=== PATIENT | male | born 1960 | race Caucasian/White ===

== ENCOUNTER 2017-10-09 02:51 | Inpatient (IN) | payer BC ==
[2017-10-09 03:09] LABS: Glucose,Whole Blood 147 mg/dL (75-99)
[2017-10-09] MEDS ORDERED: ONDANSETRON 4 MG/2 ML VIAL IVP STA (03:19)
[2017-10-09] MEDS ORDERED: SODIUM CHLORIDE 0.9% 1,000 ML IV STA (03:19)
[2017-10-09] MEDS ORDERED: NITROGLYCERIN OINT 1 INCH/GM PACKET TOPICAL STA (03:19)
[2017-10-09 03:30] LABS: Basophils % (A) 0 %; Eosinophils # (A) 0.4 k/uL (0-0.7); Eosinophils % (A) 4 %; HCT 44.7 % (39.0-53.0); HGB 14.7 gm/dL (13.0-17.5); Lymphocytes % (A) 18 %; MCH 29.8 pg (25.0-35.0); MCHC 32.9 g/dL (31.0-37.0); MCV 90.7 fL (80.0-100.0); Mean Platelet Volume 9.1; Monocytes # (A) 0.5 k/uL (0-1.0); Monocytes % (A) 5 %; Neutrophils # (A) 7.7 k/uL (1.3-7.7); Neutrophils % (A) 72 %; Platelet Count 172 k/uL (150-450); RBC 4.93 m/uL (4.30-5.90); RDW 13.2 % (11.5-15.5); WBC 10.8 k/uL (3.8-10.6)
[2017-10-09 03:39] LABS: ALT 28 U/L (21-72); AST 20 U/L (17-59); Albumin 4.3 g/dL (3.5-5.0); Alkaline Phosphatase 74 U/L (38-126); Anion Gap 12 mmol/L; Blood Urea Nitrogen 15 mg/dL (9-20); Calcium 10.1 mg/dL (8.4-10.2); Carbon Dioxide 25 mmol/L (22-30); Chloride 104 mmol/L (98-107); Glucose 138 mg/dL (74-99); Magnesium 1.9 mg/dL (1.6-2.3); Partial Thromboplastin Time 25.6 sec (22.0-30.0); Potassium 4.6 mmol/L (3.5-5.1); Prothrombin Time 10.1 sec (9.0-12.0); Sodium 141 mmol/L (137-145); Total Bilirubin 0.3 mg/dL (0.2-1.3); Total Protein 6.7 g/dL (6.3-8.2)
[2017-10-09 03:52] LABS: Creatine Kinase 72 U/L (55-170)
[2017-10-09 04:05] LABS: Creatine Kinase MB 0.9 ng/mL (0.0-2.4); Troponin I <0.012 ng/mL (0.000-0.034)
[2017-10-09] MEDS ORDERED: MECLIZINE 12.5 MG TAB PO STA (04:22)
--- NOTE | 2017-10-09 04:22 | XR ---
EXAM: XR Chest, 2 Views CLINICAL HISTORY: Chest Pain TECHNIQUE: Frontal and lateral views of the chest. COMPARISON: No relevant prior studies available. FINDINGS: Lungs: Small patchy airspace opacities medial right upper lung zone and possibly left lingula, may suggest pneumonia. Pleural space: Unremarkable. No pneumothorax. Heart: Unremarkable. No cardiomegaly. Mediastinum: Unremarkable. Bones/joints: Moderate degenerative changes. IMPRESSION: Small patchy airspace opacities medial right upper lung zone and possibly left lingula, may suggest pneumonia.
--- NOTE | 2017-10-09 04:22 | ED ---
Chest Pain HPI - General Chief Complaint: Chest Pain Stated Complaint: dizziness Time Seen by Provider: 10/09/17 03:09 Source: patient, family Mode of arrival: wheelchair Limitations: no limitations - History of Present Illness Initial Comments: 57 years old male comes in with multiple complaints he said he been dizzy his gait has been unsteady and his vision was doubled since 5 PM last evening this is minimal 11 hours now also complaining about chest tightness he had chest tightness prior to coming to the ER chest tightness is resolved now he denies any denies any chest pain now denies any pleuritic chest pain. He denies any weakness of upper or lower extremity no abdominal pain no frequency urgency dysuria. Review of system is unremarkable otherwise. Patient denies any history of heart disease he does have a history of diabetes hypertension and hyperlipidemia - Related Data Home Medications Medication Instructions Recorded Confirmed Lisinopril-Hctz 20-25 mg 1 tab PO DAILY 10/09/17 10/09/17 [Zestoretic 20-25] No Known Home Medications [No 10/09/17 10/09/17 Known Home Medications] Simvastatin [Zocor] 40 mg PO HS 10/09/17 10/09/17 metFORMIN HCL [metFORMIN HCL ER] 750 mg PO DAILY 10/09/17 10/09/17 Allergies Allergy/AdvReac Type Severity Reaction Status Date / Time Sulfa (Sulfonamide Allergy Rash/Hives Verified 10/09/17 02:56 Antibiotics) Review of Systems ROS Statement: Those systems with pertinent positive or pertinent negative responses have been documented in the HPI. ROS Other: All systems not noted in ROS Statement are negative. EKG Findings - EKG Comments: EKG Findings:: EKG is normal sinus rhythm ventricular rate is 67 IN interval is 138 QRS duration is 144 review of this EKG reveals wide QRS complex noticed some mom. Defects noticed left bundle branch block, unfortunately do not have any old EKG to compare with Past Medical History Past Medical History: Diabetes Mellitus, Hyperlipidemia, Hypertension History of Any Multi-Drug Resistant Organisms: None Reported Past Surgical History: Hernia Repair Past Psychological History: No Psychological Hx Reported Smoking Status: Current every day smoker Past Alcohol Use History: Occasional Past Drug Use History: None Reported General Exam - General Exam Comments Initial Comments: General: The patient is awake and alert, in no distress, does look Somewhat Uncomfortable Keeping His Eyes Close, GCS Is 15 Skin: Skin is warm and dry and no rashes or lesions are noted. Eye: Pupils are equal, round and reactive to light, extra-ocular movements are intact; there is normal conjunctiva bilaterally. Ears, nose, mouth and throat: There are moist mucous membranes and no oral lesions. Neck: The neck is supple, there is no tenderness, no signs of meningitis is able to move his neck with a full range of motion Cardiovascular: There is a regular rate and rhythm. No murmur, rub or gallop is appreciated. Respiratory: To auscultation bilateral, no wheezing no rhonchi no distress respiratory gates noticed Gastrointestinal: Soft, non-distended, non-tender abdomen without masses or organomegaly noted. There is no rebound or guarding present. Bowel sounds are unremarkable. Back: There is no tenderness to palpation in the midline. There is no obvious deformity. Musculoskeletal: Normal ROM, no tenderness, There is no pedal edema. There is no calf tenderness or swelling. No cords were appreciated. Neurological: CN II-XII intact, Cranial nerves III through XII are intact. There are no obvious motor or sensory deficits. Coordination appears grossly intact. Speech is normal. Psychiatric: Cooperative, appropriate mood & affect, normal judgment. Limitations: no limitations Course Vital Signs 10/09/17 10/09/17 02:52 04:23 Temperature 97 F L Pulse Rate 74 59 L Respiratory 20 16 Rate Blood Pressure 181/94 134/64 O2 Sat by Pulse 97 98 Oximetry Upon reassessment noticed the white count is 10.8 INR is unremarkable troponin is negative EKG reveals a left bundle-branch block chest x-ray shows pneumonia and head CT showed down 15 mm calcification. Considering his dizziness and concerned about brainstem infarct patient will be admitted to Dr. Garsia's service and will allow consult neurology and most probably getting MRI or MRA done Disposition Clinical Impression: Diplopia, Unsteady gait, Chest tightness, Left bundle branch block Disposition: ADMITTED IP TO THIS HOSP Condition: Good Referrals: Rubia Martinez DO [Primary Care Provider] - 1-2 days
--- NOTE | 2017-10-09 04:23 | CT ---
EXAM: CT Head Without Intravenous Contrast CLINICAL HISTORY: chest pain, dizziness TECHNIQUE: Axial computed tomography images of the head/brain without intravenous contrast. CTDI is 60.3 mGy and DLP is 1054.2 mGy-cm. This CT exam was performed using one or more of the following dose reduction techniques: automated exposure control, adjustment of the mA and/or kV according to patient size, and/or use of iterative reconstruction technique. COMPARISON: No relevant prior studies available. FINDINGS: Brain: 15 mm curvilinear calcification in left periventricular white matter region of posterior horn of left lateral ventricle is likely benign and chronic. No hemorrhage. Ventricles: See above. Bones/joints: Unremarkable. No acute fracture. Soft tissues: Unremarkable. Sinuses: Moderate mucosal thickening in ethmoid air cells Mastoid air cells: Unremarkable as visualized. No mastoid effusion. IMPRESSION: No acute intracranial findings 15 mm curvilinear calcification in left periventricular white matter region of posterior horn of left lateral ventricle is likely benign and chronic. Vascular malformation should be considered
[2017-10-09] MEDS ORDERED: MORPHINE SULFATE 4 MG/0.8 ML SYRINGE (INJ) IVP PRN (04:34)
[2017-10-09] MEDS ORDERED: ACETAMINOPHEN TAB 325 MG TAB PO PRN ×2 (04:34→13:18)
[2017-10-09] MEDS ORDERED: NITROGLYCERIN SL TABS 0.4 MG TAB SUBLINGUAL PRN (04:34)
[2017-10-09 05:56] VITALS: BMI 31.1
[2017-10-09 06:07] LABS: Glucose,Whole Blood 152 mg/dL (75-99)
[2017-10-09] MEDS ORDERED: metFORMIN 500 MG TAB PO SCH (09:00)
[2017-10-09 09:26] LABS: Creatine Kinase 64 U/L (55-170)
[2017-10-09 09:37] LABS: Creatine Kinase MB 0.7 ng/mL (0.0-2.4); Troponin I <0.012 ng/mL (0.000-0.034)
[2017-10-09] MEDS: LISINOPRIL-HCTZ 20-25 MG 1 EACH TAB PO SCH (09:48)
[2017-10-09] MEDS ORDERED: ATORVASTATIN 40 MG TAB PO SCH ×2 (10:00→21:00)
--- NOTE | 2017-10-09 10:44 | P.CRDCN ---
History of Present Illness Consult date: 10/09/17 Requesting physician: Purvi Paul Consult reason: chest pain Chief complaint: Blurring of Vision, double vision History of present illness: This is a 57-year-old gentleman with history of hypertension, hyperlipidemia, diabetes, nicotine dependence, daily EtOH use of approximately 6 beers per day, strong family history of premature coronary artery disease in his siblings who presents to the hospital with symptoms of blurring of vision and double vision. He states that when he woke up this morning, he noticed in both eyes that he was seeing double. He states that if he would cover his right eye, his left eye seemed to be focusing way off to the left. He did state that he developed a mild associated headache with this. On arrival here patient was experiencing some pressure sensation in his chest, he is not sure if it was anxiety related or not, but for this reason a cardiology consultation was requested. Apparently the patient had a stress test in March which was reported to them to be inconclusive because the patient did not reach his heart rate, he is scheduled next week to undergo a repeat stress test. Family physician is Dr. Martinez, he does not follow at this time with a [employer] [facility]. At the time of my examination this morning, he denies any chest discomfort, he states chronically that he has a left-sided upper chest and neck discomfort related to a pinched nerve he's had for quite some time in the left neck area. This is unchanged from his usual. He continues to have double vision. CAT scan of the brain was performed on arrival here which did not reveal any acute intracranial findings, 15 mm calcification in the left periventricular white matter region of the posterior horn of the left lateral ventricle is noted and likely benign. Vascular malformation should be considered. Chest x-ray showed small patchy airspace [place] in the medial right upper lobe lung zone and possible left lingula suggesting possible pneumonia. EKG shows a normal sinus rhythm with a left bundle-branch block pattern with T-wave inversion in the lateral leads. No acute changes noted. Blood pressure on arrival here 180/ 90, heart rate in the 70s, 97% on room air. He is afebrile. Laboratory data, white blood cell count 10.8, hemoglobin 14.7, platelet count 172. Sodium 141, potassium 4.6, BUN 15, creatinine 0.6. Magnesium 1.9. Troponins negative 2. 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 Drinks approx. 6 beers a day. Past Drug Use History: None Reported - Past Family History Father Family Medical History: Coronary Artery Disease (CAD), Hyperlipidemia, Hypertension Additional Family Medical History / Comment(s): CABG Mother Family Medical History: Coronary Artery Disease (CAD), CVA/TIA, Diabetes Mellitus, Hyperlipidemia, Hypertension, Myocardial Infarction ([place]) Additional Family Medical History / Comment(s): 7 stents Brother(s) Family Medical History: Diabetes Mellitus Additional Family Medical History / Comment(s): CABG Sister(s) Additional Family Medical History / Comment(s): CABG and valve Medications and Allergies Home Medications Medication Instructions Recorded Confirmed Type Lisinopril-Hctz 20-25 mg 1 tab PO DAILY 10/09/17 10/09/17 History [Zestoretic 20-25] No Known Home Medications [No 10/09/17 10/09/17 History Known Home Medications] Simvastatin [Zocor] 40 mg PO HS 10/09/17 10/09/17 History metFORMIN HCL [metFORMIN HCL ER] 750 mg PO DAILY 10/09/17 10/09/17 History Allergies Allergy/AdvReac Type Severity Reaction Status Date / Time Sulfa (Sulfonamide Allergy Rash/Hives Verified 10/09/17 02:56 Antibiotics) Physical Exam Vitals: Vital Signs Temp Pulse Pulse Resp BP BP Pulse Ox 10/09/17 05:34 64 18 146/65 98 10/09/17 05:02 98.6 F 68 16 131/60 96 10/09/17 04:23 59 L 16 134/64 98 10/09/17 02:52 97 F L 74 20 181/94 97 Intake and Output 10/08/17 10/09/17 10/09/17 22:59 06:59 14:59 Other: # Voids 1 Weight 98.43 kg PHYSICAL EXAMINATION: HEENT: Head is atraumatic, normocephalic. Pupils equal, round. Neck is supple. There is no elevated jugular venous pressure. HEART EXAMINATION: Heart S1, S2 normal. No murmur or gallop heard. CHEST EXAMINATION: Lungs reveal scattered coarse wheezing throughout. ABDOMEN: Soft, nontender. Bowel sounds are heard. No organomegaly noted. EXTREMITIES: 2+ peripheral pulses with no evidence of peripheral edema and no calf tenderness noted. NEUROLOGIC patient is awake, alert and oriented -3. Double vision bilaterally. . Results 10/09/17 03:12 10/09/17 03:12 Cardiac Enzymes 10/09/17 10/09/17 10/09/17 Range/Units 03:12 03:12 08:35 AST 20 (17-59) U/L CK-MB (CK-2) 0.9 0.7 (0.0-2.4) ng/mL Troponin I <0.012 <0.012 (0.000-0.034) ng/mL Coagulation 10/09/17 Range/Units 03:12 PT 10.1 (9.0-12.0) sec APTT 25.6 (22.0-30.0) sec CBC 10/09/17 Range/Units 03:12 WBC 10.8 H (3.8-10.6) k/uL RBC 4.93 (4.30-5.90) m/uL Hgb 14.7 (13.0-17.5) gm/dL Hct 44.7 (39.0-53.0) % Plt Count 172 (150-450) k/uL Comprehensive Metabolic Panel 10/09/17 Range/Units 03:12 Sodium 141 (137-145) mmol/L Potassium 4.6 (3.5-5.1) mmol/L Chloride 104 (98-107) mmol/L Carbon Dioxide 25 (22-30) mmol/L BUN 15 (9-20) mg/dL Creatinine 0.62 L (0.66-1.25) mg/dL Glucose 138 H (74-99) mg/dL Calcium 10.1 (8.4-10.2) mg/dL AST 20 (17-59) U/L ALT 28 (21-72) U/L Alkaline Phosphatase 74 (38-126) U/L Total Protein 6.7 (6.3-8.2) g/dL Albumin 4.3 (3.5-5.0) g/dL Current Medications Generic Name Dose Route Start Last Admin Trade Name Freq PRN Reason Stop Dose Admin Acetaminophen 650 mg 10/09/17 04:34 Tylenol Tab PO Q4HR PRN Pain Atorvastatin Calcium 40 mg 10/09/17 10:00 10/09/17 09:52 Lipitor PO 40 mg DAILY LAUREANO Administration Lisinopril/HCTZ 1 each 10/09/17 09:00 10/09/17 09:48 Zestoretic 20-25 PO 1 each DAILY LAUREANO Administration Sodium Chloride 1,000 mls @ 100 mls/hr 10/09/17 03:19 10/09/17 03:27 Saline 0.9% IV 10/09/17 13:18 100 mls/hr .Q10H STA Administration Metformin HCl 750 mg 10/09/17 09:00 10/09/17 09:50 Glucophage PO 750 mg BID LAUREANO Administration Morphine Sulfate 2 mg 10/09/17 04:34 Morphine Sulfate (Inj) IVP Q5M PRN Chest Pain Nitroglycerin 0.4 mg 10/09/17 04:34 Nitrostat SUBLINGUAL Q5M PRN Chest Pain Intake and Output 10/08/17 10/09/17 10/09/17 22:59 06:59 14:59 Other: # Voids 1 Weight 98.43 kg 10/09/17 03:12 10/09/17 03:12 EKG Interpretations (text) EKG shows normal sinus rhythm with left bundle branch block pattern T-wave inversion in the lateral leads. Assessment and Plan Plan: Assessment and plan #1 symptoms of double vision with associated headache. Initial CAT scan did not reveal any acute findings. Rule out possible TIA #2 chest pressure and heaviness, troponin negative 2. EKG shows a normal sinus rhythm with T wave inversion noted in the lateral leads. Patient did have a stress test performed in March, he was told this was inconclusive because he was not able to reach maximum heart rate, he is scheduled as an outpatient to undergo a stress test next week. #3 hypertension #4 hyperlipidemia # 5 diabetes #6 nicotine dependence #7 EtOH use, patient drinks at least 6 beers a day #8 strong family history of premature coronary artery disease in his siblings Plan We will obtain an echocardiogram with Doppler study. Neurology consultation has also been requested. Once the patient's neurological workup is completed and patient is stable he will have a repeat stress test performed. Will increase the patient's Lipitor to 80 mg daily, if okay with neurology initiate a baby aspirin now on daily. Further recommendations to follow. DNP note has been reviewed, I agree with a documented findings and plan of care. Patient was seen and examined.
[2017-10-09 12:03] LABS: Glucose,Whole Blood 111 mg/dL (75-99)
[2017-10-09] MEDS ORDERED: ONDANSETRON 4 MG/2 ML VIAL IVP PRN (13:18)
[2017-10-09] MEDS ORDERED: THIAMINE 100 MG/ML 2 ML VIAL IM STA (13:31)
[2017-10-09] MEDS ORDERED: LORazepam 2 MG/ML INJ IV PRN ×3 (13:31)
--- NOTE | 2017-10-09 13:36 | P.HPIM ---
History of Present Illness H&P Date: 10/09/17 Chief Complaint: Double vision This is a 57-year-old gentleman with past medical history noted below significant for essential hypertension, tobacco abuse, and daily alcohol use who presented to the emergency room with blurred and double vision. Patient said that his symptoms started all of a sudden this morning when he noted that he was seeing everything in double. He denies any significant headache. He said it's easier for him to cover his left eye and focus with the right eye. He never had similar problems in the past. He was evaluated in the emergency room and computed tomography scan of the brain showed no acute findings. There was an area of calcification in the left periventricular white matter with questionable vascular malformation. Patient was also describing some chest discomfort and pressure at 12 leads EKG showed no acute ischemic changes with a left bundle branch block. His troponin was negative. He is currently chest pain-free. Blood pressure not well controlled on presentation. Patient said that his symptoms are persistent and he is still seeing double. No new other symptoms of numbness or tingling otherwise. No muscle weakness. No focal neurological deficit Review of Systems Review of system: 14 points review of systems were obtained and were negative except to what were mentioned in the HPI. 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 Drinks approx. 6 beers a day. Past Drug Use History: None Reported - Past Family History Father Family Medical History: Coronary Artery Disease (CAD), Hyperlipidemia, Hypertension Additional Family Medical History / Comment(s): CABG Mother Family Medical History: Coronary Artery Disease (CAD), CVA/TIA, Diabetes Mellitus, Hyperlipidemia, Hypertension, Myocardial Infarction ([place]) Additional Family Medical History / Comment(s): 7 stents Brother(s) Family Medical History: Diabetes Mellitus Additional Family Medical History / Comment(s): CABG Sister(s) Additional Family Medical History / Comment(s): CABG and valve Medications and Allergies Home Medications Medication Instructions Recorded Confirmed Type Lisinopril-Hctz 20-25 mg 1 tab PO DAILY 10/09/17 10/09/17 History [Zestoretic 20-25] Simvastatin [Zocor] 40 mg PO HS 10/09/17 10/09/17 History metFORMIN HCL [metFORMIN HCL ER] 750 mg PO DAILY 10/09/17 10/09/17 History Allergies Allergy/AdvReac Type Severity Reaction Status Date / Time Sulfa (Sulfonamide Allergy Rash/Hives Verified 10/09/17 11:18 Antibiotics) Physical Exam Vitals: Vital Signs Temp Pulse Pulse Resp BP BP Pulse Ox 10/09/17 08:00 98.0 F 63 18 140/64 99 10/09/17 05:34 64 18 146/65 98 10/09/17 05:02 98.6 F 68 16 131/60 96 10/09/17 04:23 59 L 16 134/64 98 10/09/17 02:52 97 F L 74 20 181/94 97 Intake and Output 10/08/17 10/09/17 10/09/17 22:59 06:59 14:59 Intake Total 240 Balance 240 Intake: Oral 240 Other: # Voids 1 Weight 98.43 kg General: The patient is awake and alert, in no distress Eye: there is normal conjunctiva bilaterally. Neck: The neck is supple, there is no JVD. Cardiovascular: Normal S1-S2, no S3-S4, no murmurs. Respiratory: Lungs clear to auscultation bilaterally Gastrointestinal: Abdomen is soft, nontender Musculoskeletal: There is no pedal edema. Neurological:. Speech is normal. Skin: Skin is warm and dry Results CBC & Chem 7: 10/09/17 03:12 10/09/17 03:12 Labs: Abnormal Lab Results - Last 24 Hours (Table) 10/09/17 10/09/17 10/09/17 Range/Units 03:04 03:12 03:12 WBC 10.8 H (3.8-10.6) k/uL Creatinine 0.62 L (0.66-1.25) mg/dL Glucose 138 H (74-99) mg/dL POC Glucose (mg/dL) 147 H (75-99) mg/dL 10/09/17 10/09/17 Range/Units 06:05 11:57 WBC (3.8-10.6) k/uL Creatinine (0.66-1.25) mg/dL Glucose (74-99) mg/dL POC Glucose (mg/dL) 152 H 111 H (75-99) mg/dL Thrombosis Risk Factor Assmnt - Choose All That Apply Any of the Below Risk Factors Present?: Yes Each Factor Represents 1 point: Age 41-60 years, Obesity (BMI >25) Thrombosis Risk Factor Assessment Total Risk Factor Score: 2 Thrombosis Risk Factor Assessment Level: Low Risk Assessment and Plan Assessment: 1. Suspected CVA, computed tomography scan of the brain showed no acute findings. Area of calcification in the left periventricular region with questionable vascular malformation. I would obtain MRI/MRA of the brain/neck for further evaluation. Neurology consulted. 2. Chest pressure, 12-lead EKG showed no acute ischemic changes. Troponin negative 2. Patient was seen and evaluated by cardiology. Echocardiogram ordered. No further testing at this time. 3. Essential hypertension: Blood pressure within acceptable range. Continue home medication 4. Alcohol abuse: Counseled to quit. Start CIAK protocol as needed. 5. Mixed hyperlipidemia, I would check fasting lipid profile
[2017-10-09] MEDS: SODIUM CHLORIDE 0.9% 1,000 ML IV SCH ×2 (14:15→22:47)
[2017-10-09] MEDS: ASPIRIN 81 MG PO SCH (14:36)
--- NOTE | 2017-10-09 15:02 | P.CNNES ---
History of Present Illness Consult date: 10/09/17 Reason for Consult: Patient with symptoms of diplopia and possible stroke. History of Present Illness: This patient is a 57-year-old right-handed white male who was in his usual state of health until late yesterday evening. Patient states he was getting ready to go to bed when he noticed some difficulty with blurring of vision. He did have an occasional episode in which he thought he was seeing double. He decided to go to bed yesterday evening and woke up early this morning and noted that he had sudden onset of diplopia. He describes his double vision mostly is vertical in that objects appeared one over the other. Patient has no previous history of having diplopia in the past. He didn't associate a mild headache with this symptoms last night but nothing severe this morning. He did close one eye and noticed that his double vision completely resolved. He closed the other eye and again the symptoms completely resolved with one eye closed. The patient was advised to come to the emergency room. He was seen in the emergency room at [facility] and evaluated by Dr. Mathews. The patient was sent for a computed tomography scan of the brain in the ER for further evaluation. His CAT scan revealed no acute intracranial abnormalities. There was a 15 mm curvilinear calcification noted in the left periventricular white matter region in the posterior horn. Vascular malformation was in the differential diagnosis. Patient denies any previous history of head trauma or head injury. He has no previous history of seizures. He did feel slight dizziness with this symptoms which she describes as secondary to his sense of diplopia. He has no previous history of TIA or stroke. We recommended that he be started on one baby aspirin 81 mg daily for secondary stroke prevention. We will also obtain a carotid Doppler ultrasound if this has not been ordered. He does have a history of alcohol use and apparently drinks 6 beers a day. He is being monitored for possible alcohol withdrawal syndrome as well and will be started on a CIWA protocol if necessary. The patient is resting comfortably at this time and does tend to keep his left eye closed. He states with one eye close his vision is normal. With both eyes open is when he sees double. He continues to describe a vertical diplopia mostly. He denies any significant dizziness at this time. Finger-nose testing reveals no evidence of dysmetria. He did complain of some chest pain and he is being evaluated by cardiology and most likely will require a stress test for further evaluation. The patient states he has been able to stand and ambulate but is very cautious due to the double vision. Ophthalmology has been consulted and we will wait their further recommendations. His neurological examination at this time reveals him to have some left eye gaze paresis. There is also slight ptosis involving the left eyelid. His clinical history suggests brainstem ischemia and/or brainstem stroke. We would recommend an MRI and MRA of the brain for further evaluation. But also obtain a carotid Doppler ultrasound as part of the stroke workup. He is to be continued on one baby aspirin daily for secondary stroke prevention. His overall prognosis at this time remains guarded. Case was discussed at length with the patient. All of his questions are answered. He is aware of our recommendations and findings this time. Review of Systems Constitutional: Denies chills, Denies fever Eyes: bilateral diplopia, denies blurred vision, denies pain Ears, nose, mouth and throat: Denies headache, Denies sore throat Cardiovascular: Denies chest pain, Denies shortness of breath Respiratory: Denies cough Gastrointestinal: Denies abdominal pain, Denies diarrhea, Denies nausea, Denies vomiting Musculoskeletal: Denies myalgias Integumentary: Denies pruritus, Denies rash Neurological: Reports double vision, Reports headaches, Reports paresthesias, Denies numbness, Denies weakness Psychiatric: Denies anxiety, Denies depression Endocrine: Denies fatigue, Denies weight change Past Medical History Past Medical History: Diabetes Mellitus, Hyperlipidemia, Hypertension History of Any Multi-Drug Resistant Organisms: None Reported Past Surgical History: Hernia Repair Additional Past Surgical History / Comment(s): 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 Drinks approx. 6 beers a day. Past Drug Use History: None Reported - Past Family History Father Family Medical History: Coronary Artery Disease (CAD), Hyperlipidemia, Hypertension Additional Family Medical History / Comment(s): CABG Mother Family Medical History: Coronary Artery Disease (CAD), CVA/TIA, Diabetes Mellitus, Hyperlipidemia, Hypertension, Myocardial Infarction ([place]) Additional Family Medical History / Comment(s): 7 stents Brother(s) Family Medical History: Diabetes Mellitus Additional Family Medical History / Comment(s): CABG Sister(s) Additional Family Medical History / Comment(s): CABG and valve Medications and Allergies Home Medications Medication Instructions Recorded Confirmed Type Lisinopril-Hctz 20-25 mg 1 tab PO DAILY 10/09/17 10/09/17 History [Zestoretic 20-25] Simvastatin [Zocor] 40 mg PO HS 10/09/17 10/09/17 History metFORMIN HCL [metFORMIN HCL ER] 750 mg PO DAILY 10/09/17 10/09/17 History Allergies Allergy/AdvReac Type Severity Reaction Status Date / Time Sulfa (Sulfonamide Allergy Rash/Hives Verified 10/09/17 11:18 Antibiotics) Physical Examination - Vital Signs Vital Signs: Vital Signs Temp Pulse Pulse Resp BP BP Pulse Ox 10/09/17 08:00 98.0 F 63 18 140/64 99 10/09/17 05:34 64 18 146/65 98 10/09/17 05:02 98.6 F 68 16 131/60 96 10/09/17 04:23 59 L 16 134/64 98 10/09/17 02:52 97 F L 74 20 181/94 97 Intake and Output 10/08/17 10/09/17 10/09/17 22:59 06:59 14:59 Intake Total 240 Balance 240 Intake: Oral 240 Other: # Voids 1 Weight 98.43 kg - Constitutional General appearance: average body habitus, cooperative - EENT EENT: PERRL, mucous membranes moist - Respiratory Respiratory: lungs clear, normal breath sounds - Cardiovascular Cardiovascular: regular rate, normal S1, normal S2 Extremities: no peripheral edema bilaterally - Gastrointestinal Gastrointestinal: normoactive bowel sounds - Integumentary Integumentary: normal - Neurologic Cranial nerve examination: PERRL, EOMI (Patient is showing some left eye ocular paresis and different directions. There is also slight ptosis of the left eyelid.), VFF, V1/V2/V3 grossly intact, face symmetric, tongue midline, intact gag reflex, intact corneal reflex, normal palatal elevation Speech examination: intact Sensorimotor examination: intact Detailed motor examination: grossly full strength in all extremities Motor examination - right side: 4/5: biceps, triceps, wrist flexion, wrist extension, supervisor component assembler, hip flexors, knee extensors, dorsiflexion, toe extension (EHL) , plantarflexion Motor examination - left side: 4/5: biceps, triceps, wrist flexion, wrist extension, supervisor component assembler, hip flexors, knee extensors, dorsiflexion, toe extension (EHL) , plantarflexion Detailed sensory examination: intact Reflex and gait examination: intact Reflexes: 1+: ankle, bicep, knee, tricep - Musculoskeletal Musculoskeletal: no pain - Psychiatric Psychiatric: mood/affect appropriate, cooperative Results - Laboratory Findings CBC and BMP: 10/09/17 03:12 10/09/17 03:12 Abnormal Lab Findings: Abnormal Labs 10/09/17 10/09/17 10/09/17 03:04 03:12 03:12 WBC 10.8 H Creatinine 0.62 L Glucose 138 H POC Glucose (mg/dL) 147 H 10/09/17 10/09/17 06:05 11:57 WBC Creatinine Glucose POC Glucose (mg/dL) 152 H 111 H Assessment and Plan (1) Brainstem stroke Current Visit: Yes Status: Acute Code(s): I63.9 - CEREBRAL INFARCTION, UNSPECIFIED SNOMED Code(s): 087472552 (2) Diplopia Current Visit: Yes Status: Acute Code(s): H53.2 - DIPLOPIA SNOMED Code(s) : 71774893 (3) Dizziness Current Visit: Yes Status: Acute Code(s): R42 - DIZZINESS AND GIDDINESS SNOMED Code(s): 925502012 (4) Alcohol abuse Current Visit: Yes Status: Acute Code(s): F10.10 - ALCOHOL ABUSE, UNCOMPLICATED SNOMED Code(s): 67465306 Plan: This patient is a 57-year-old male who awakened this morning with symptoms of acute onset of diplopia. He went to bed yesterday evening noticing some blurring of his vision. This morning when he had awakened he was having double vision. He describes the diplopia is vertical diplopia with one object on top of the other. Symptoms did not improve and he decided to come to the emergency room at [facility] for further evaluation. He was seen in the ER by Dr. Mathews. He was sent for a computed tomography scan of the brain results which are noted above. His neurological examination reveals patient to have possible left eye lateral and medial rectus weakness. There is also slight ptosis of the left eyelid. His clinical symptoms suggest possibility of brainstem ischemia and/or stroke. We have recommended patient undergo a MRI MRA of the brain for further evaluation. We will have him undergo a full stroke workup. He is to continue on one baby aspirin daily for secondary stroke prevention. His stroke risk factors include hypertension and hyperlipidemia. He is being evaluated by cardiology for angina and chest pain. We would recommend the patient to be maintained on 1 aspirin daily for secondary stroke prevention. We will give further recommendations depending on the results of his MRI/MRA of the brain. We will await further evaluation from ophthalmology regarding his diplopia. In the meantime we recommend the patient to use an eye patch for either eye for 12 hours and to alternate with the other eye daily. We will obtain a carotid Doppler ultrasound and echocardiogram as part of the stroke workup. His overall prognosis at this time remains guarded. This case was discussed at length with the patient. All of his questions answered. He is wearing her provisional diagnosis and her current treatment plan. His overall prognosis at this time remains guarded. Time with Patient: Greater than 30
[2017-10-09 15:48] LABS: Creatine Kinase 61 U/L (55-170)
[2017-10-09 16:01] LABS: Creatine Kinase MB 0.6 ng/mL (0.0-2.4); Troponin I <0.012 ng/mL (0.000-0.034)
[2017-10-09] MEDS: THIAMINE 100 MG TAB PO SCH (16:07)
--- NOTE | 2017-10-09 16:07 | US ---
EXAMINATION TYPE: US carotid duplex BILAT DATE OF EXAM: 10/09/2017 COMPARISON: NONE CLINICAL HISTORY: Acute onset diplopia possible stroke.. EXAM MEASUREMENTS: RIGHT: Peak Systolic Velocity (PSV) cm/sec ----- Right CCA: 8304 ----- Right ICA: 106.6 ----- Right ECA: 127.6 ICA/CCA ratio: 1.3 RIGHT: End Diastole cm/sec ----- Right CCA: 16.0 ----- Right ICA: 16.0 ----- Right ECA: 11.4 LEFT: Peak Systolic Velocity (PSV) cm/sec ----- Left CCA: 108.9 ----- Left ICA: 114.1 ----- Left ECA: 136.3 ICA/CCA ratio: 1.0 LEFT: End Diastole cm/sec ----- Left CCA: 21.7 ----- Left ICA: 19.5 ----- Left ECA: 13.7 VERTEBRALS (direction of flow): Right Vertebral: Antegrade Left Vertebral: Antegrade Rhythm: Appears regular Moderate atherosclerotic changes noted bilaterally worse in bilateral bulbs and proximal ICA. Some elevated velocities documented. IMPRESSION: Less than 50% stenosis identified bilaterally. Criteria for Assigning % of Stenosis / Diameter reduction (Estimation based on the indirect measurements of the internal carotid artery velocities (ICA PSV). 1. Normal (no stenosis)=ICA PSV < 125 cm/s: ratio < 2.0: ICA EDV<40 cm/s. 2. Less than 50% stenosis=ICA PSV < 125 cm/s: ratio < 2.0: ICA EDV<40 cm/s. 3. 50 to 69% stenosis=ICA PSV of 125 to 230 cm/s: ration 2.0 ? 4.0: ICA EDV 40-100 cm/s. 4. Greater than 70% stenosis to near occlusion= ICA PSV > 230 cm/s: ratio > 4.0: ICA EDV > 100 cm/s. 5. Near occlusion= ICA PSV velocities may be low or undetectable: variable ratio and ICA EDV. 6. Total occlusion=unable to detect flow.
[2017-10-09 16:40] LABS: Glucose,Whole Blood 105 mg/dL (75-99)
[2017-10-09] MEDS: HEPARIN SODIUM,PORCINE 5,000 UNIT/ML 1 ML VIAL SQ SCH (20:36)
[2017-10-09] MEDS: ATORVASTATIN 80 MG TAB PO SCH (20:36)
[2017-10-09 21:01] LABS: Glucose,Whole Blood 94 mg/dL (75-99)
[2017-10-10 06:12] LABS: Glucose,Whole Blood 110 mg/dL (75-99)
[2017-10-10 07:20] LABS: Basophils % (A) 0 %; Eosinophils # (A) 0.4 k/uL (0-0.7); Eosinophils % (A) 4 %; HCT 43.5 % (39.0-53.0); HGB 13.9 gm/dL (13.0-17.5); Lymphocytes # (A) 2.5 k/uL (1.0-4.8); Lymphocytes % (A) 28 %; MCH 29.4 pg (25.0-35.0); Mean Platelet Volume 9.2; Monocytes # (A) 0.5 k/uL (0-1.0); Monocytes % (A) 5 %; Neutrophils # (A) 5.5 k/uL (1.3-7.7); Neutrophils % (A) 62 %; Platelet Count 170 k/uL (150-450); RBC 4.73 m/uL (4.30-5.90); RDW 13.3 % (11.5-15.5); WBC 8.9 k/uL (3.8-10.6)
[2017-10-10 07:34] LABS: Anion Gap 10 mmol/L; Blood Urea Nitrogen 11 mg/dL (9-20); Calcium 9.6 mg/dL (8.4-10.2); Carbon Dioxide 27 mmol/L (22-30); Chloride 104 mmol/L (98-107); Cholesterol 109 mg/dL (<200); Glucose 117 mg/dL (74-99); HDL Cholesterol 38 mg/dL (40-60); LDL Cholesterol,Calculated 45 mg/dL (0-99); Potassium 4.2 mmol/L (3.5-5.1); Sodium 141 mmol/L (137-145); Triglycerides 128 mg/dL (<150)
[2017-10-10] MEDS: HEPARIN SODIUM,PORCINE 5,000 UNIT/ML 1 ML VIAL SQ SCH ×2 (08:52→21:00)
[2017-10-10] MEDS: ASPIRIN 81 MG PO SCH (08:52)
[2017-10-10] MEDS: LISINOPRIL-HCTZ 20-25 MG 1 EACH TAB PO SCH (08:52)
[2017-10-10] MEDS: SODIUM CHLORIDE 0.9% 1,000 ML IV SCH ×3 (08:53→21:06)
[2017-10-10] MEDS ORDERED: MORPHINE ORAL SOLN 10 MG/5 ML CUP PO PRN (09:24)
--- NOTE | 2017-10-10 10:26 | P.PN ---
Subjective Progress Note Date: 10/10/17 This is a 57-year-old gentleman with past medical history noted below significant for essential hypertension, tobacco abuse, and daily alcohol use who presented to the emergency room with blurred and double vision. Patient said that his symptoms started all of a sudden this morning when he noted that he was seeing everything in double. He denies any significant headache. He said it's easier for him to cover his left eye and focus with the right eye. He never had similar problems in the past. He was evaluated in the emergency room and computed tomography scan of the brain showed no acute findings. There was an area of calcification in the left periventricular white matter with questionable vascular malformation. Patient was also describing some chest discomfort and pressure at 12 leads EKG showed no acute ischemic changes with a left bundle branch block. His troponin was negative. He is currently chest pain-free. Blood pressure not well controlled on presentation. Patient said that his symptoms are persistent and he is still seeing double. No new other symptoms of numbness or tingling otherwise. No muscle weakness. No focal neurological deficit 10/10/2017 patient reporting improvement in his vision. He states that's almost back to normal. He is no longer having any of the chest pain or chest pressure. He is scheduled for an MRI/MRA of the brain and echocardiogram today. Troponins were negative 3 sets. Carotid Doppler shows less than 50% stenosis bilaterally in the internal carotid arteries. Patient denies any weakness in the extremities. Denies any nausea or vomiting. Denies any chest pain or shortness of breath. Denies any burning with urination and reports having regular bowel movements. Objective - Vital Signs Vital signs: Vital Signs Temp 97.9 F 10/10/17 08:00 Pulse 60 10/10/17 08:00 Resp 18 10/10/17 08:00 BP 131/54 10/10/17 08:00 Pulse Ox 97 10/10/17 08:00 Intake & Output 10/09/17 10/10/17 10/10/17 18:59 06:59 18:59 Intake Total 1200 1200 240 Balance 1200 1200 240 Weight 96.5 kg Intake: IV 1200 Sodium Chloride 0.9% 1, 1200 000 ml @ 100 mls/hr IV . Q10H LAUREANO Rx#:[id number] Oral 1200 240 Other: Voiding Method Toilet Urinal # Voids 1 2 - Exam Head normocephalic Neck supple Lungs clear to auscultation bilaterally no wheezing or crackles Heart regular rate and rhythm S1-S2, no rub or gallop Abdomen is soft nontender nondistended positive bowel sounds no hepatosplenomegaly Extremities no edema Neuro alert and orientated to 3 - Labs CBC & Chem 7: 10/10/17 07:01 10/10/17 07:01 Labs: Abnormal Lab Results - Last 24 Hours (Table) 10/09/17 10/09/17 10/10/17 Range/Units 11:57 16:34 06:10 Glucose (74-99) mg/dL POC Glucose (mg/dL) 111 H 105 H 110 H (75-99) mg/dL HDL Cholesterol (40-60) mg/dL 10/10/17 Range/Units 07:01 Glucose 117 H (74-99) mg/dL POC Glucose (mg/dL) (75-99) mg/dL HDL Cholesterol 38 L (40-60) mg/dL Assessment and Plan Assessment: 1. Suspected CVA, computed tomography scan of the brain showed no acute findings. Area of calcification in the left periventricular region with questionable vascular malformation. I would obtain MRI/MRA of the brain/neck for further evaluation. Echo pending. Carotid Doppler shows less than 50% stenosis bilateral internal carotid arteries. Continue statin and aspirin. Patient has had improvement in his vision. Awaiting ophthalmology consult 2. Chest pressure, 12-lead EKG showed no acute ischemic changes. Troponin negative 3. Patient was seen and evaluated by cardiology. Echocardiogram ordered. Cardiology plans to proceed with stress test when patient with neurology workup completed 3. Essential hypertension: Blood pressure within acceptable range. Continue home medication 4. Alcohol abuse: Counseled to quit. Start CIWA protocol as needed. 5. Mixed hyperlipidemia, continue statin DVT prophylaxis subcu heparin Consult physical therapy I performed an examination of the patient and discussed their management with the physician Mold Breaker. I have reviewed the Physician Mold Breaker's notes and agree with the documented findings and plan of care
[2017-10-10] MEDS: THIAMINE 100 MG TAB PO SCH ×2 (11:09→16:06)
--- NOTE | 2017-10-10 11:23 | MR ---
EXAMINATION TYPE: MR brain wo/w MRA neck wo/w con DATE OF EXAM: 10/10/2017 COMPARISON: Carotid ultrasound and CT brain 10/09/2017 HISTORY: 57-year-old male Double vision, rule out stroke, rule out aneurysm TECHNIQUE: Multiplanar, multisequence images of the brain and brainstem were acquired before and aft er administration of 10 mL IV Gadavist. Diffusion weighted imaging is performed. 2-D and 3-D time-o f-flight imaging of the neck along with pre and post coronal sequences of the neck. FINDINGS: BRAIN: No evidence for acute infarction, hemorrhage, mass, mass effect, midline shift, herniation, effacemen t of basal cisterns, or extra-axial fluid collection. The ventricles and sulci are age-appropriate with mild generalized supratentorial volume loss. The left vertebral artery is dominant. The V4 segment right vertebral artery is hypoplastic. T2/FLAIR weighted sequences show no white matter signal abnormality with particular attention to the posterior aspect of the atrium of the left lateral ventricle at the site of calcification on CT. Post contrast images demonstrate faint wispy enhancement in this region, sagittal series 1201 image 5 7, axial series II image 18. No discrete nidus or enlarged vessel. Otherwise, no evidence of pathologic enhancement. Dural venous sinuses are patent. Midline structures demonstrate normal morphology. The craniocervical junction is normal. Moderate mucosal thickening ethmoid air cells. Mild mucosal thickening throughout the remainder of th e paranasal sinuses. Partial opacification within the right mastoid air cells. Globes are intact. MRA NECK: Patent origins of the bilateral vertebral arteries and the origins of the great vessels. Again, left vertebral artery is dominant. The V4 segment becomes hypoplastic after the takeoff of the posterior inferior cerebellar artery. Bilateral common carotid arteries are patent There is mild atherosclerotic narrowing at the right carotid bulb of 20%. Otherwise, the bilateral in ternal carotid arteries are patent. IMPRESSION: BRAIN MRI: 1. Very faint wispy enhancement along the posterior margin of the atrium of the left lateral ventricl e at the site of calcification on CT. A subtle developmental venous anomaly is considered. No discret e nidus or enlarged vessel to suggest AVM. 2. Mild generalized cerebral atrophy. No acute intracranial abnormality seen. 3. Chronic paranasal sinus disease, moderate in the ethmoid air cells. 4. Some trapped fluid in the right mastoid air cells. Correlate for any mastoid pain to exclude masto iditis. MR ANGIOGRAPHY NECK: 1. Mild, approximately 20%, narrowing of the right carotid bulb. No hemodynamically significant steno sis of either ICA. 2. Dominant left vertebral artery. The V4/intracranial segment right vertebral artery becomes hypopla stic after the PICA takeoff.
[2017-10-10 11:49] LABS: Glucose,Whole Blood 103 mg/dL (75-99)
--- NOTE | 2017-10-10 13:13 | P.PN ---
Subjective Progress Note Date: 10/10/17 This is a 57-year-old gentleman with history of hypertension, hyperlipidemia, diabetes, nicotine dependence, daily EtOH use of approximately 6 beers per day, strong family history of premature coronary artery disease in his siblings who presents to the hospital with symptoms of blurring of vision and double vision. He states that when he woke up this morning, he noticed in both eyes that he was seeing double. He states that if he would cover his right eye, his left eye seemed to be focusing way off to the left. He did state that he developed a mild associated headache with this. On arrival here patient was experiencing some pressure sensation in his chest, he is not sure if it was anxiety related or not, but for this reason a cardiology consultation was requested. Apparently the patient had a stress test in March which was reported to them to be inconclusive because the patient did not reach his heart rate, he is scheduled next week to undergo a repeat stress test. Family physician is Dr. Martinez, he does not follow at this time with a manager of investigations. At the time of my examination this morning, he denies any chest discomfort, he states chronically that he has a left-sided upper chest and neck discomfort related to a pinched nerve he's had for quite some time in the left neck area. This is unchanged from his usual. He continues to have double vision. CAT scan of the brain was performed on arrival here which did not reveal any acute intracranial findings, 15 mm calcification in the left periventricular white matter region of the posterior horn of the left lateral ventricle is noted and likely benign. Vascular malformation should be considered. Chest x-ray showed small patchy airspace [place] in the medial right upper lobe lung zone and possible left lingula suggesting possible pneumonia. EKG shows a normal sinus rhythm with a left bundle-branch block pattern with T-wave inversion in the lateral leads. No acute changes noted. Blood pressure on arrival here 180/ 90, heart rate in the 70s, 97% on room air. He is afebrile. Laboratory data, white blood cell count 10.8, hemoglobin 14.7, platelet count 172. Sodium 141, potassium 4.6, BUN 15, creatinine 0.6. Magnesium 1.9. Troponins negative 2. 10/10/2017 Patient seen and examined this morning, states that his vision has improved and is almost back to normal. He denies any chest discomfort. Patient is scheduled for MRI/MRA of the brain today. Troponins were negative 3. Carotid Doppler study revealed less than 50% stenosis bilaterally in the internal carotid arteries. He denies any weakness in his extremities. Echocardiogram with Doppler study remains pending. Blood pressure 130/50 with a heart rate in the 60s, 97% on room air. Objective - Vital Signs Vital signs: Vital Signs Temp 97.9 F 10/10/17 11:45 Pulse 61 10/10/17 11:45 Resp 18 10/10/17 11:45 BP 147/71 10/10/17 11:45 Pulse Ox 96 10/10/17 11:45 Intake & Output 10/09/17 10/10/17 10/10/17 18:59 06:59 18:59 Intake Total 1200 1200 240 Balance 1200 1200 240 Weight 96.5 kg Intake: IV 1200 Sodium Chloride 0.9% 1, 1200 000 ml @ 100 mls/hr IV . Q10H LAUREANO Rx#:[id number] Oral 1200 240 Other: Voiding Method Toilet Urinal # Voids 1 2 - Exam PHYSICAL EXAMINATION: HEENT: Head is atraumatic, normocephalic. Pupils equal, round. Neck is supple. There is no elevated jugular venous pressure. HEART EXAMINATION: Heart S1, S2 normal. No murmur or gallop heard. CHEST EXAMINATION: Lungs are clear with fine wheezes . No chest wall tenderness is noted on palpation or with deep breathing. ABDOMEN: Soft, nontender. Bowel sounds are heard. No organomegaly noted. EXTREMITIES: 2+ peripheral pulses with no evidence of peripheral edema and no calf tenderness noted. NEUROLOGIC patient is awake, alert and oriented -3. . - Labs CBC & Chem 7: 10/10/17 07:01 10/10/17 07:01 Labs: Abnormal Lab Results - Last 24 Hours (Table) 10/09/17 10/10/17 10/10/17 Range/Units 16:34 06:10 07:01 Glucose 117 H (74-99) mg/dL POC Glucose (mg/dL) 105 H 110 H (75-99) mg/dL HDL Cholesterol 38 L (40-60) mg/dL 10/10/17 Range/Units 11:47 Glucose (74-99) mg/dL POC Glucose (mg/dL) 103 H (75-99) mg/dL HDL Cholesterol (40-60) mg/dL Assessment and Plan Plan: Assessment and plan #1 symptoms of double vision with associated headache. Initial CAT scan did not reveal any acute findings. Rule out possible TIA #2 chest pressure and heaviness, troponin negative 3. EKG shows a normal sinus rhythm with T wave inversion noted in the lateral leads. Patient did have a stress test performed in March, he was told this was inconclusive because he was not able to reach maximum heart rate, he is scheduled as an outpatient to undergo a stress test next week. #3 hypertension #4 hyperlipidemia # 5 diabetes #6 nicotine dependence #7 EtOH use, patient drinks at least 6 beers a day #8 strong family history of premature coronary artery disease in his siblings Plan We'll review the echocardiogram with Doppler study was performed. Patient is scheduled today to undergo MRI/MRA of the brain. DNP note has been reviewed, I agree with a documented findings and plan of care. Patient was seen and examined.
[2017-10-10 16:53] LABS: Glucose,Whole Blood 107 mg/dL (75-99)
[2017-10-10] MEDS: ATORVASTATIN 80 MG TAB PO SCH (21:00)
[2017-10-10 21:18] LABS: Glucose,Whole Blood 106 mg/dL (75-99)
--- NOTE | 2017-10-10 23:26 | P.PN ---
Subjective Progress Note Date: 10/10/17 This patient is a 57-year-old male who is being evaluated for recent episode of diplopia and blurred vision. Patient described symptoms of vertical diplopia. He was admitted to hospital for further stroke evaluation. He underwent an initial computed tomography scan of the brain which revealed no acute intracranial abnormalities. There was a 15 mm calcification noted in the left periventricular white matter region. Patient was sent for MRI/MRA of the brain today. This MRI fails to reveal any evidence of acute stroke. Specifically no evidence of brainstem infarction. There was faint enhancement on the posterior margin of the left lateral ventricle felt to represent a venous anomaly. There was mild generalized cerebral atrophy noted. No other abnormality was detected. MRA of the neck revealed only 20% stenosis of the right carotid bulb. No significant hemodynamically significant stenosis was noted. We reviewed the results of the MRI/MRA today with the patient today in detail. We have recommended a ophthalmology consultation with Dr. Perez. We will await his further recommendations. Once again there is no evidence on his MRI to suggest brainstem stroke. The patient states there was significant improvement with his vision today. He is no longer experiencing evidence for diplopia. Clinically his symptoms still could be consistent with TIA. He is being followed closely by cardiology. He is scheduled to have an outpatient stress test done next week. He does have history of alcohol use on a daily basis and he will be started on a CIWA protocol as needed. We will continue close neurological follow-up with the patient during this admission. Patient being considered for possible discharge home tomorrow. He should follow-up in the outpatient neurology clinic in 3-4 weeks. We will continue close neurological follow-up for the patient during this admission. Objective - Vital Signs Vital signs: Vital Signs Temp 98.0 F 10/10/17 16:00 Pulse 60 10/10/17 16:00 Resp 18 10/10/17 16:00 BP 130/61 10/10/17 16:00 Pulse Ox 97 10/10/17 16:00 Intake & Output 10/10/17 10/10/17 10/11/17 06:59 18:59 06:59 Intake Total 1200 1320 240 Balance 1200 1320 240 Weight 96.5 kg Intake: IV 1200 600 Sodium Chloride 0.9% 1, 1200 600 000 ml @ 100 mls/hr IV . Q10H LAUREANO Rx#:[id number] Oral 720 240 Other: Voiding Method Toilet Urinal # Voids 2 2 - Exam Physical examination: PHYSICAL EXAMINATION: Patient is resting comfortably in bed. VITAL SIGNS: Blood pressure is [130/61]. Heart rate is [60]. Respiration is [18] . Temperature is [98.0]. HEENT: Head is atraumatic, neck is supple, there were no carotid bruits. CHEST: Lungs are clear to auscultation and percussion. CARDIAC: S1, S2 normal rate and rhythm. There is no murmur. ABDOMEN: Soft and nontender. Bowel sounds are present. EXTREMITIES: There is no pedal edema. Peripheral pulses are present. Neurological examination: Patient's neurological examination is unchanged from yesterday. Patient denies any symptoms of diplopia today. Visual field testing and eye tracking seems to be intact for the patient on examination today. - Labs CBC & Chem 7: 10/10/17 07:01 10/10/17 07:01 Labs: Abnormal Lab Results - Last 24 Hours (Table) 10/10/17 10/10/17 10/10/17 Range/Units 06:10 07:01 11:47 Glucose 117 H (74-99) mg/dL POC Glucose (mg/dL) 110 H 103 H (75-99) mg/dL HDL Cholesterol 38 L (40-60) mg/dL 10/10/17 Range/Units 16:37 Glucose (74-99) mg/dL POC Glucose (mg/dL) 107 H (75-99) mg/dL HDL Cholesterol (40-60) mg/dL Assessment and Plan (1) Brainstem stroke Current Visit: Yes Status: Acute Code(s): I63.9 - CEREBRAL INFARCTION, UNSPECIFIED SNOMED Code(s): 790852951 (2) Diplopia Current Visit: Yes Status: Acute Code(s): H53.2 - DIPLOPIA SNOMED Code(s) : 34908706 (3) Dizziness Current Visit: Yes Status: Acute Code(s): R42 - DIZZINESS AND GIDDINESS SNOMED Code(s): 788581784 (4) Alcohol abuse Current Visit: Yes Status: Acute Code(s): F10.10 - ALCOHOL ABUSE, UNCOMPLICATED SNOMED Code(s): 27467255 Plan: This patient is a 57-year-old male who is being evaluated for episode of vertical diplopia and mild dizziness. He was sent for MRI/MRA of the brain today results of which are noted above. There was mild calcification on his CAT scan which again is minimally detected on his MRI of the brain suggesting a vascular malformation. No other acute evidence of stroke was noted specifically involving the brainstem region. We are awaiting further evaluation from ophthalmology regarding his diplopia symptoms. Patient mentions today that his diplopia has completely resolved and he is able to see clearly with no double vision. We did review the results of his MRI/MRA today with him in detail. We will continue close neurological follow-up with the patient. We will await further ophthalmologically evaluation and any further recommendations. Clinically the patient most likely experience some form of TIA as his diplopia has subsequently resolved today. The patient is to have a follow-up stress test as an outpatient next week. Cardiology is following the patient closely during this admission. Patient may follow-up in the outpatient neurology clinic soon after discharge. We will continue to monitor any further recurrence of symptoms during this admission. His overall prognosis at this time remains guarded.
[2017-10-11 06:21] LABS: Glucose,Whole Blood 109 mg/dL (75-99)
[2017-10-11 07:00] LABS: Basophils % (A) 1 %; Eosinophils # (A) 0.3 k/uL (0-0.7); Eosinophils % (A) 4 %; HCT 44.6 % (39.0-53.0); HGB 14.9 gm/dL (13.0-17.5); Lymphocytes % (A) 28 %; MCH 30.9 pg (25.0-35.0); MCHC 33.4 g/dL (31.0-37.0); MCV 92.5 fL (80.0-100.0); Mean Platelet Volume 8.5; Monocytes # (A) 0.4 k/uL (0-1.0); Monocytes % (A) 5 %; Neutrophils # (A) 4.5 k/uL (1.3-7.7); Neutrophils % (A) 61 %; Platelet Count 184 k/uL (150-450); RBC 4.82 m/uL (4.30-5.90); RDW 13.1 % (11.5-15.5); WBC 7.4 k/uL (3.8-10.6)
[2017-10-11 07:25] LABS: Anion Gap 11 mmol/L; Blood Urea Nitrogen 11 mg/dL (9-20); Calcium 9.8 mg/dL (8.4-10.2); Carbon Dioxide 28 mmol/L (22-30); Chloride 104 mmol/L (98-107); Glucose 111 mg/dL (74-99); Potassium 4.4 mmol/L (3.5-5.1); Sodium 143 mmol/L (137-145)
[2017-10-11] MEDS: ASPIRIN 81 MG PO SCH (07:53)
[2017-10-11] MEDS: HEPARIN SODIUM,PORCINE 5,000 UNIT/ML 1 ML VIAL SQ SCH ×2 (07:53→21:16)
[2017-10-11] MEDS: LISINOPRIL-HCTZ 20-25 MG 1 EACH TAB PO SCH (07:53)
--- NOTE | 2017-10-11 09:59 | ECHOF ---
Referral Reason:chest pain MEASUREMENTS -------- HEIGHT: 157.5 cm WEIGHT: 96.2 kg BP: 120/63 RVIDd: 3.1 cm (< 3.3) IVSd: 1.3 cm (0.6 - 1.1) LVIDd: 4.8 cm (3.9 - 5.3) LVPWd: 1.2 cm (0.6 - 1.1) IVSs: 1.4 cm LVIDs: 4.5 cm LVPWs: 1.3 cm LA Diam: 3.5 cm (2.7 - 3.8) LAESV Index (A-L): 46.24 ml/m Ao Diam: 3.0 cm (2.0 - 3.7) AV Cusp: 1.9 cm (1.5 - 2.6) LA Diam: 4.1 cm (2.7 - 3.8) MV EXCURSION: 19.436 mm (> 18.000) MV EF SLOPE: 77 mm/s (70 - 150) EPSS: 0.7 cm MV E Adan: 0.78 m/s MV DecT: 180 ms MV A Adan: 0.81 m/s MV E/A Ratio: 0.96 RAP: 5.00 mmHg RVSP: 23.59 mmHg FINDINGS -------- Sinus rhythm. This was a techncally difficult study with suboptimal views, , Lumason utilized for enhancement of im ages. The left ventricular size is normal. There is mild concentric left ventricular hypertrophy. Overa ll left ventricular systolic function is severely impaired with, an EF between 25 - 30 %. Mid anter ior LV wall motion is hypokinetic. Anterseptal Hypokinesis Septal Hypokinesis [place] Hypokinesis . The right ventricle is normal in size. The left atrial size is normal. LA is severely dilated >40 ml/m2 The right atrial size is normal. 5.0mg OF Lumason UTLIZED: 2 OR MORE WALL SEGMENTS NOT VISUALIZED. The aortic valve is trileaflet, and appears structurally normal. No aortic stenosis or regurgitation. Mild mitral annular calcification present. Mild mitral regurgitation is present. Mild tricuspid regurgitation present. There is no evidence of pulmonary hypertension. The right v entricular systolic pressure, as measured by Doppler, is 23.59mmHg. There is no pulmonic regurgitation present. The aortic root size is normal. There is no pericardial effusion. CONCLUSIONS -------- 1. This was a techncally difficult study with suboptimal views, , Lumason utilized for enhancement of images. 2. The left ventricular size is normal. 3. There is mild concentric left ventricular hypertrophy. 4. Overall left ventricular systolic function is severely impaired with, an EF between 25 - 30 %. 5. Mid anterior LV wall motion is hypokinetic. 6. Anterseptal Hypokinesis 7. Septal Hypokinesis 8. [place] Hypokinesis. 9. LA is severely dilated >40 ml/m2 10. 5.0mg OF Lumason UTLIZED: 2 OR MORE WALL SEGMENTS NOT VISUALIZED. 11. The aortic valve is trileaflet, and appears structurally normal. No aortic stenosis or regurgitat ion. 12. Mild mitral annular calcification present. 13. Mild mitral regurgitation is present. 14. Mild tricuspid regurgitation present. 15. There is no evidence of pulmonary hypertension. 16. The right ventricular systolic pressure, as measured by Doppler, is 23.59mmHg. 17. There is no pulmonic regurgitation present. 18. The aortic root size is normal. 19. There is no pericardial effusion. OUTSIDE SALES: Lacey Lim RDCS
--- NOTE | 2017-10-11 11:12 | P.PN ---
Subjective Progress Note Date: 10/11/17 This is a 57-year-old gentleman with past medical history noted below significant for essential hypertension, tobacco abuse, and daily alcohol use who presented to the emergency room with blurred and double vision. Patient said that his symptoms started all of a sudden this morning when he noted that he was seeing everything in double. He denies any significant headache. He said it's easier for him to cover his left eye and focus with the right eye. He never had similar problems in the past. He was evaluated in the emergency room and computed tomography scan of the brain showed no acute findings. There was an area of calcification in the left periventricular white matter with questionable vascular malformation. Patient was also describing some chest discomfort and pressure at 12 leads EKG showed no acute ischemic changes with a left bundle branch block. His troponin was negative. He is currently chest pain-free. Blood pressure not well controlled on presentation. Patient said that his symptoms are persistent and he is still seeing double. No new other symptoms of numbness or tingling otherwise. No muscle weakness. No focal neurological deficit 10/10/2017 patient reporting improvement in his vision. He states that's almost back to normal. He is no longer having any of the chest pain or chest pressure. He is scheduled for an MRI/MRA of the brain and echocardiogram today. Troponins were negative 3 sets. Carotid Doppler shows less than 50% stenosis bilaterally in the internal carotid arteries. Patient denies any weakness in the extremities. Denies any nausea or vomiting. Denies any chest pain or shortness of breath. Denies any burning with urination and reports having regular bowel movements. 10/11/2017 patient's vision has returned to normal. He is eager for discharge home. Initially anticipated discharge for today. However, echo showing an EF of 25-30% with wall motion abnormality. Discussed with cardiology nurse practitioner. They want to keep patient in hospital for further evaluation. Patient denies any chest pain or shortness breath. Denies any nausea or vomiting. Reporting having regular bowel movements. Denies any difficulty urinating. Objective - Vital Signs Vital signs: Vital Signs Temp 97.9 F 10/11/17 00:00 Pulse 66 10/11/17 08:00 Resp 17 10/11/17 08:00 BP 140/76 10/11/17 08:00 Pulse Ox 100 10/11/17 08:00 Intake & Output 10/10/17 10/11/17 10/11/17 18:59 06:59 18:59 Intake Total 1320 2260 240 Balance 1320 2260 240 Weight 96.8 kg Intake: IV 600 1300 Sodium Chloride 0.9% 1, 600 1300 000 ml @ 100 mls/hr IV . Q10H LAUREANO Rx#:[id number] Oral 720 960 240 Other: Voiding Method Toilet Urinal # Voids 2 3 - Exam Head normocephalic Neck supple Lungs clear to auscultation bilaterally no wheezing or crackles Heart regular rate and rhythm S1-S2, no rub or gallop Abdomen is soft nontender nondistended positive bowel sounds no hepatosplenomegaly Extremities no edema Neuro alert and orientated to 3 - Labs CBC & Chem 7: 10/11/17 06:27 10/11/17 06:27 Labs: Abnormal Lab Results - Last 24 Hours (Table) 10/10/17 10/10/17 10/10/17 Range/Units 11:47 16:37 21:17 Glucose (74-99) mg/dL POC Glucose (mg/dL) 103 H 107 H 106 H (75-99) mg/dL 10/11/17 10/11/17 Range/Units 06:18 06:27 Glucose 111 H (74-99) mg/dL POC Glucose (mg/dL) 109 H (75-99) mg/dL Assessment and Plan Assessment: 1. TIA with vision changes. CVA ruled out. Symptoms now resolved. computed tomography scan of the brain showed no acute findings. Area of calcification in the left periventricular region with questionable vascular malformation. Carotid Doppler shows less than 50% stenosis bilateral internal carotid arteries. Continue statin and aspirin. MRI and MRA of the brain shows a possible subtle development of a venous anomaly. No enlarged vessel to suggest AVM. In no acute intracranial abnormality. Patient will follow-up with ophthalmology outpatient. Patient seen and evaluated by neurology. Appreciate their recommendations 2. Chest pressure, 12-lead EKG showed no acute ischemic changes. Troponin negative 3. Patient was seen and evaluated by cardiology. Echo shows an EF of 25-30% with wall motion abnormality. Cardiology following closely and awaiting their further recommendations 3. Essential hypertension: Blood pressure within acceptable range. Continue home medication 4. Alcohol abuse: Counseled to quit. Start CIWA protocol as needed. 5. Mixed hyperlipidemia, continue statin 6. Nicotine dependence: Head nicotine patch DVT prophylaxis subcu heparin Consult physical therapy I performed an examination of the patient and discussed their management with the physician Electronic Heat Seal Operator. I have reviewed the Physician Electronic Heat Seal Operator's notes and agree with the documented findings and plan of care
[2017-10-11 11:31] LABS: Glucose,Whole Blood 105 mg/dL (75-99)
[2017-10-11] MEDS: CARVEDILOL 3.125 MG TAB PO SCH ×2 (12:08→17:40)
[2017-10-11] MEDS: MULTIVITAMINS, THERA 1 EACH TAB PO SCH (12:08)
[2017-10-11] MEDS: NICOTINE 21MG/24HR PATCH TRANSDERM SCH (12:08)
[2017-10-11] MEDS: THIAMINE 100 MG TAB PO SCH ×2 (13:09→17:40)
[2017-10-11] MEDS ORDERED: ALPRAZolam 0.25 MG TAB PO PRN (13:14)
[2017-10-11] MEDS ORDERED: ATORVASTATIN 80 MG TAB PO STA (13:14)
[2017-10-11] MEDS ORDERED: NITROGLYCERIN SL TABS 0.4 MG TAB SUBLINGUAL PRN (13:14)
[2017-10-11] MEDS ORDERED: ALPRAZolam 0.5 MG TAB PO PRN (13:14)
[2017-10-11] MEDS ORDERED: ASPIRIN 325 MG TAB PO STA (13:14)
[2017-10-11] MEDS ORDERED: SODIUM CHLORIDE 0.9% 1,000 ML in EMPTY BAG 1 BAG IV ONE (13:14)
--- NOTE | 2017-10-11 15:15 | CONS ---
CONSULTATION HISTORY: This is a 57-year-old white male, who stated that he was in his normal health until 2 days ago. The patient states that as he was going to bed, he noticed some blurred vision in his eyes and eventually woke up at 1:30 in the morning, this will be Tuesday, and noted that he had double vision. The patient stated that he went back to bed and woke up on Tuesday with double vision that could not be corrected. The patient states that it appeared vertical in nature and covering 1 or the other eye alleviated his symptoms. He asked his to look at his eyes and he believes that his left eye was turned downwards and outwards. The patient presented to the emergency room and was admitted with continued double vision for Tuesday. The patient states that around noon on Tuesday, his double vision was starting to resolve and by 1 o'clock he was fusing again and had no further symptoms of blurriness or diplopia. Since that time he has no longer experienced any vision symptoms and he feels that he is back to his normal health. The patient has been seen previously by another professional skater, Dr. Larson, who sees him on an annual basis. I was asked to evaluate and determine the cause of the patient's double vision which of course is difficult now that his symptoms are alleviated. FINDINGS: Visual acuity measured 20/20 bilaterally. The pupils were equal, reactive to light. There was no afferent defect. Extraocular movements were full in all gaze positions. I could not elicit diplopia in any gaze position. Penlight exam revealed normal- appearing anterior segments. Fundus exam was unremarkable. IMPRESSION: Diplopia, transient, now resolved. Because of the short nature of this event, it is not likely this represents a brainstem infarct. It is of course difficult if not impossible to say what could have caused this. Neuroimaging certainly is indicated and this has turned out to be negative. As he is no longer symptomatic, I would recommend followup on an outpatient basis either with myself or back to Dr. Larson's where he has a lengthy history. MMELMERL / EUSEBION: [id number] /
--- NOTE | 2017-10-11 16:54 | P.PN ---
Subjective Progress Note Date: 10/11/17 This is a 57-year-old gentleman with history of hypertension, hyperlipidemia, diabetes, nicotine dependence, daily EtOH use of approximately 6 beers per day, strong family history of premature coronary artery disease in his siblings who presents to the hospital with symptoms of blurring of vision and double vision. He states that when he woke up this morning, he noticed in both eyes that he was seeing double. He states that if he would cover his right eye, his left eye seemed to be focusing way off to the left. He did state that he developed a mild associated headache with this. On arrival here patient was experiencing some pressure sensation in his chest, he is not sure if it was anxiety related or not, but for this reason a cardiology consultation was requested. Apparently the patient had a stress test in March which was reported to them to be inconclusive because the patient did not reach his heart rate, he is scheduled next week to undergo a repeat stress test. Family physician is Dr. Martinez, he does not follow at this time with a tractor trailer technician. At the time of my examination this morning, he denies any chest discomfort, he states chronically that he has a left-sided upper chest and neck discomfort related to a pinched nerve he's had for quite some time in the left neck area. This is unchanged from his usual. He continues to have double vision. CAT scan of the brain was performed on arrival here which did not reveal any acute intracranial findings, 15 mm calcification in the left periventricular white matter region of the posterior horn of the left lateral ventricle is noted and likely benign. Vascular malformation should be considered. Chest x-ray showed small patchy airspace [place] in the medial right upper lobe lung zone and possible left lingula suggesting possible pneumonia. EKG shows a normal sinus rhythm with a left bundle-branch block pattern with T-wave inversion in the lateral leads. No acute changes noted. Blood pressure on arrival here 180/ 90, heart rate in the 70s, 97% on room air. He is afebrile. Laboratory data, white blood cell count 10.8, hemoglobin 14.7, platelet count 172. Sodium 141, potassium 4.6, BUN 15, creatinine 0.6. Magnesium 1.9. Troponins negative 2. 10/10/2017 Patient seen and examined this morning, states that his vision has improved and is almost back to normal. He denies any chest discomfort. Patient is scheduled for MRI/MRA of the brain today. Troponins were negative 3. Carotid Doppler study revealed less than 50% stenosis bilaterally in the internal carotid arteries. He denies any weakness in his extremities. Echocardiogram with Doppler study remains pending. Blood pressure 130/50 with a heart rate in the 60s, 97% on room air. 10/11/2017 Patient seen and examined this morning, feeling well no complaints today at all. He had an echocardiogram with Doppler study performed which revealed an ejection fraction of 25-30%. Patient had an echocardiogram with Doppler study performed in February which revealed a normal left ventricular systolic function. Patient was advised because of the newly found cardiomyopathy to undergo cardiac catheterization, the risks and benefits were explained to the patient and his , this will be performed tomorrow by Dr. VC Bang. Objective - Vital Signs Vital signs: Vital Signs Temp 97.9 F 10/11/17 00:00 Pulse 55 L 10/11/17 15:47 Resp 17 10/11/17 15:47 BP 139/75 10/11/17 15:47 Pulse Ox 98 10/11/17 15:47 Intake & Output 10/10/17 10/11/17 10/11/17 18:59 06:59 18:59 Intake Total 1320 2260 480 Balance 1320 2260 480 Weight 96.8 kg Intake: IV 600 1300 Sodium Chloride 0.9% 1, 600 1300 000 ml @ 100 mls/hr IV . Q10H [facility] Rx#:[id number] Oral 720 960 480 Other: Voiding Method Toilet Urinal # Voids 2 3 2 - Exam PHYSICAL EXAMINATION: HEENT: Head is atraumatic, normocephalic. Pupils equal, round. Neck is supple. There is no elevated jugular venous pressure. HEART EXAMINATION: Heart S1, S2 normal. No murmur or gallop heard. CHEST EXAMINATION: Lungs are clear with fine wheezes . No chest wall tenderness is noted on palpation or with deep breathing. ABDOMEN: Soft, nontender. Bowel sounds are heard. No organomegaly noted. EXTREMITIES: 2+ peripheral pulses with no evidence of peripheral edema and no calf tenderness noted. NEUROLOGIC patient is awake, alert and oriented -3. . - Labs CBC & Chem 7: 10/11/17 06:27 10/11/17 06:27 Labs: Abnormal Lab Results - Last 24 Hours (Table) 10/10/17 10/10/17 10/11/17 Range/Units 16:37 21:17 06:18 Glucose (74-99) mg/dL POC Glucose (mg/dL) 107 H 106 H 109 H (75-99) mg/dL 10/11/17 10/11/17 Range/Units 06:27 11:30 Glucose 111 H (74-99) mg/dL POC Glucose (mg/dL) 105 H (75-99) mg/dL Assessment and Plan Plan: Assessment and plan #1 symptoms of double vision with associated headache. Initial CAT scan did not reveal any acute findings. Rule out possible TIA #2 chest pressure and heaviness, troponin negative 3. EKG shows a normal sinus rhythm with T wave inversion noted in the lateral leads. Patient did have a stress test performed in March, he was told this was inconclusive because he was not able to reach maximum heart rate, he is scheduled as an outpatient to undergo a stress test next week. #3 hypertension #4 hyperlipidemia # 5 diabetes #6 nicotine dependence #7 EtOH use, patient drinks at least 6 beers a day #8 strong family history of premature coronary artery disease in his siblings Plan Echocardiogram with Doppler study revealed an ejection fraction of 25-30%, patient was advised to undergo cardiac catheterization. Risks and benefits were explained to the patient in detail, this will be performed tomorrow by Dr. VC Bang. Patient is on an VANESSA inhibitor, we will start him today on a beta talya as well. DNP note has been reviewed, I agree with a documented findings and plan of care. Patient was seen and examined.
[2017-10-11 17:02] LABS: Glucose,Whole Blood 103 mg/dL (75-99)
[2017-10-11] MEDS: ATORVASTATIN 80 MG TAB PO SCH (21:10)
[2017-10-11 21:12] LABS: Glucose,Whole Blood 104 mg/dL (75-99)
--- NOTE | 2017-10-11 23:43 | P.PN ---
Subjective Progress Note Date: 10/11/17 This patient is a 57-year-old male who is being evaluated for recent episode of diplopia and blurred vision. Patient described symptoms of vertical diplopia. He was admitted to hospital for further stroke evaluation. He underwent an initial computed tomography scan of the brain which revealed no acute intracranial abnormalities. There was a 15 mm calcification noted in the left periventricular white matter region. Patient was sent for MRI/MRA of the brain today. This MRI fails to reveal any evidence of acute stroke. Specifically no evidence of brainstem infarction. There was faint enhancement on the posterior margin of the left lateral ventricle felt to represent a venous anomaly. There was mild generalized cerebral atrophy noted. No other abnormality was detected. MRA of the neck revealed only 20% stenosis of the right carotid bulb. No significant hemodynamically significant stenosis was noted. We reviewed the results of the MRI/MRA today with the patient today in detail. We have recommended a ophthalmology consultation with Dr. Perez. We will await his further recommendations. Once again there is no evidence on his MRI to suggest brainstem stroke. The patient states there was significant improvement with his vision today. He is no longer experiencing evidence for diplopia. Clinically his symptoms still could be consistent with TIA. He is being followed closely by cardiology. He is scheduled to have an outpatient stress test done next week. He does have history of alcohol use on a daily basis and he will be started on a CIWA protocol as needed. We will continue close neurological follow-up with the patient during this admission. Patient being considered for possible discharge home today. Unfortunately is echocardiogram was completed and revealed an ejection fraction of 25-30%. There was wall motion abnormality detected. Cardiology was consulted and they're recommending the patient undergo cardiac catheterization tomorrow. Patient's diplopia has completely resolved. He was seen by Dr. Perez today. No further intervention is planned. We will continue close neurological follow-up for the patient during this admission. Objective - Vital Signs Vital signs: Vital Signs Temp 97.9 F 10/11/17 00:00 Pulse 62 10/11/17 12:00 Resp 17 10/11/17 12:00 BP 141/72 10/11/17 12:00 Pulse Ox 95 10/11/17 12:28 Intake & Output 10/10/17 10/11/17 10/11/17 18:59 06:59 18:59 Intake Total 1320 2260 240 Balance 1320 2260 240 Weight 96.8 kg Intake: IV 600 1300 Sodium Chloride 0.9% 1, 600 1300 000 ml @ 100 mls/hr IV . Q10H [facility] Rx#:[id number] Oral 720 960 240 Other: Voiding Method Toilet Urinal # Voids 2 3 - Exam Physical examination: PHYSICAL EXAMINATION: Patient is resting comfortably in bed. VITAL SIGNS: Blood pressure is [139/75]. Heart rate is [55]. Respiration is [17] . Temperature is [97.9]. HEENT: Head is atraumatic, neck is supple, there were no carotid bruits. CHEST: Lungs are clear to auscultation and percussion. CARDIAC: S1, S2 normal rate and rhythm. There is no murmur. ABDOMEN: Soft and nontender. Bowel sounds are present. EXTREMITIES: There is no pedal edema. Peripheral pulses are present. Neurological examination: Patient's neurological examination is unchanged from yesterday. Patient denies any symptoms of diplopia today. Visual field testing and eye tracking seems to be intact for the patient on examination today. - Labs CBC & Chem 7: 10/11/17 06:27 10/11/17 06:27 Labs: Abnormal Lab Results - Last 24 Hours (Table) 10/10/17 10/10/17 10/11/17 Range/Units 16:37 21:17 06:18 Glucose (74-99) mg/dL POC Glucose (mg/dL) 107 H 106 H 109 H (75-99) mg/dL 10/11/17 10/11/17 Range/Units 06:27 11:30 Glucose 111 H (74-99) mg/dL POC Glucose (mg/dL) 105 H (75-99) mg/dL Assessment and Plan (1) Brainstem stroke Current Visit: Yes Status: Acute Code(s): I63.9 - CEREBRAL INFARCTION, UNSPECIFIED SNOMED Code(s): 073195302 (2) Diplopia Current Visit: Yes Status: Acute Code(s): H53.2 - DIPLOPIA SNOMED Code(s) : 90146550 (3) Dizziness Current Visit: Yes Status: Acute Code(s): R42 - DIZZINESS AND GIDDINESS SNOMED Code(s): 491864977 (4) Alcohol abuse Current Visit: Yes Status: Acute Code(s): F10.10 - ALCOHOL ABUSE, UNCOMPLICATED SNOMED Code(s): 84188850 Plan: This patient is a 57-year-old male who is being evaluated for episode of vertical diplopia and mild dizziness. He was sent for MRI/MRA of the brain today results of which are noted above. There was mild calcification on his CAT scan which again is minimally detected on his MRI of the brain suggesting a vascular malformation. No other acute evidence of stroke was noted specifically involving the brainstem region. We are awaiting further evaluation from ophthalmology regarding his diplopia symptoms. Patient mentions today that his diplopia has completely resolved and he is able to see clearly with no double vision. We did review the results of his MRI/MRA today with him in detail. We will continue close neurological follow-up with the patient. We will await further ophthalmologically evaluation and any further recommendations. Clinically the patient most likely experience some form of TIA as his diplopia has subsequently resolved today. Cardiology is following the patient closely during this admission. The patient underwent echocardiogram which revealed his ejection fraction to be 25-30%. There was wall motion abnormalities detected as well. The patient is being scheduled by cardiology for a cardiac catheterization tomorrow. He was seen by Dr. Perez today and has a normal exam. Neurologically he remains very much intact. Patient may follow-up in the outpatient neurology clinic soon after discharge. We will continue to monitor any further recurrence of symptoms during this admission. His overall prognosis at this time remains guarded.
[2017-10-12 02:47] VITALS: TEMP 98.2
[2017-10-12] MEDS: ASPIRIN 81 MG PO SCH (05:32)
[2017-10-12] MEDS: HEPARIN SODIUM,PORCINE 5,000 UNIT/ML 1 ML VIAL SQ SCH (05:33)
[2017-10-12 06:01] LABS: Glucose,Whole Blood 95 mg/dL (75-99)
[2017-10-12] MEDS: LISINOPRIL-HCTZ 20-25 MG 1 EACH TAB PO SCH (06:36)
[2017-10-12] MEDS: CARVEDILOL 3.125 MG TAB PO SCH ×2 (06:36→16:54)
[2017-10-12] MEDS: NICOTINE 21MG/24HR PATCH TRANSDERM SCH (06:38)
[2017-10-12 06:59] LABS: Basophils % (A) 0 %; Eosinophils # (A) 0.2 k/uL (0-0.7); Eosinophils % (A) 3 %; HCT 44.8 % (39.0-53.0); HGB 15.4 gm/dL (13.0-17.5); Lymphocytes % (A) 27 %; MCH 31.5 pg (25.0-35.0); MCHC 34.4 g/dL (31.0-37.0); MCV 91.6 fL (80.0-100.0); Mean Platelet Volume 8.9; Monocytes # (A) 0.4 k/uL (0-1.0); Monocytes % (A) 6 %; Neutrophils # (A) 4.7 k/uL (1.3-7.7); Neutrophils % (A) 63 %; Platelet Count 171 k/uL (150-450); RBC 4.89 m/uL (4.30-5.90); WBC 7.5 k/uL (3.8-10.6)
[2017-10-12 07:34] LABS: Anion Gap 13 mmol/L; Blood Urea Nitrogen 11 mg/dL (9-20); Calcium 9.9 mg/dL (8.4-10.2); Carbon Dioxide 25 mmol/L (22-30); Chloride 104 mmol/L (98-107); Glucose 92 mg/dL (74-99); Potassium 4.3 mmol/L (3.5-5.1); Sodium 142 mmol/L (137-145)
[2017-10-12] MEDS ORDERED: IV FLUID CONTINUATION 950 ML IV ONE (09:40)
[2017-10-12] MEDS ORDERED: LIDOCAINE 2% INJ 20 MG/ML (20 ML MDV) ONE (09:47)
[2017-10-12] MEDS ORDERED: MIDAZOLAM 2 MG/2 ML VIAL ONE (09:47)
[2017-10-12] MEDS ORDERED: fentaNYL (PF) 50 MCG/ML 2 ML AMP ONE (09:48)
[2017-10-12] MEDS ORDERED: MIDAZOLAM 2 MG/2 ML VIAL IV ONE (10:00)
[2017-10-12] MEDS ORDERED: fentaNYL (PF) 50 MCG/ML 2 ML AMP IV ONE (10:01)
[2017-10-12] MEDS ORDERED: LIDOCAINE 2% INJ 20 MG/ML SQ ONE (10:03)
[2017-10-12] MEDS ORDERED: NITROGLYCERIN 1000MCG/10ML SYRINGE INTRACORON ONE (10:09)
[2017-10-12] MEDS ORDERED: IOPAMIDOL-370 125ML BTL INJ ONE (10:32)
[2017-10-12 11:29] LABS: Glucose,Whole Blood 108 mg/dL (75-99)
[2017-10-12 12:30] VITALS: RESP 17
[2017-10-12] MEDS: MULTIVITAMINS, THERA 1 EACH TAB PO SCH (12:52)
[2017-10-12] MEDS: THIAMINE 100 MG TAB PO SCH ×2 (12:52→16:54)
--- NOTE | 2017-10-12 13:00 | CC ---
CARDIAC CATHETERIZATION REPORT Mr. Blood is a 57-year-old gentleman who was admitted with symptoms of double vision. Neurological workup was negative. EKG showed evidence of left bundle branch block pattern. Echocardiogram showed the ejection fraction in the range of 30% with anteroapical and inferoapical hypokinesia. In view of that, the patient was recommended to have a cardiac catheterization for definitive diagnosis. PROCEDURE: Right groin was prepped and draped in the usual manner and the skin was infiltrated with 2% Xylocaine. The right femoral artery was entered using Seldinger technique, a #6-Cymraes sheath was placed in. Selective coronary angiography was then performed in multiple projections. The left ventricular pressures were obtained. Patient tolerated the procedure well. Sheath will be removed and the patient will be considered for atherectomy of the LAD as an outpatient by Dr. Smith English. Moderate sedation was used. Sedation time is 19 minutes. The left ventricular end-diastolic pressure is 4-6 mmHg prior to angiography. No gradient is noted across the aortic valve. SELECTIVE CORONARY ANGIOGRAPHY: Left main coronary artery is normal. LAD is calcified and proximally has a 90% stenosis. Beyond that, it is a good caliber blood vessel. Circumflex coronary artery has mild disease. Right coronary artery is a relatively small caliber blood vessel and mild irregularity is noted. FINAL IMPRESSION: There is a 90% calcified stenosis in the proximal left anterior descending artery. Circumflex and the right coronary arteries are normal. Left ventricular end-diastolic pressure is normal. RECOMMENDATION: Films were reviewed with Dr. Smith English. Patient will be brought back electively for atherectomy of the LAD. MMODL / IJN: [id number] /
[2017-10-12 16:29] VITALS: BP 132/71; PULSE 62
[2017-10-12 16:39] LABS: Glucose,Whole Blood 89 mg/dL (75-99)
--- NOTE | 2017-10-12 17:21 | P.DS ---
Providers Date of admission: 10/11/17 14:49 Expected date of discharge: 10/12/17 Attending physician: Purvi Paul Consults: 10/09/17 04:34 Consult Physician Stat Consulting Provider: Errol Perez Consult Reason/Comments: Diplopia Do you want consulting provider notified?: Yes Consult Physician Stat Consulting Provider: Camila Leigh Consult Reason/Comments: Dizziness, diplopia Do you want consulting provider notified?: Yes Consult Physician Urgent Consulting Provider: John Longo Consult Reason/Comments: Chest tightness ,Onset left bundle branch block Do you want consulting provider notified?: Yes Primary care physician: Rubia Martinez Hospital Course: Diagnoses on discharge: 1. TIA with vision changes. CVA ruled out. Symptoms now resolved. computed tomography scan of the brain showed no acute findings. Area of calcification in the left periventricular region with questionable vascular malformation. Carotid Doppler shows less than 50% stenosis bilateral internal carotid arteries. Continue statin and aspirin. MRI and MRA of the brain shows a possible subtle development of a venous anomaly. No enlarged vessel to suggest AVM. In no acute intracranial abnormality. Patient will follow-up with ophthalmology outpatient. Patient seen and evaluated by neurology. Appreciate their recommendations 2. Chest pressure, 12-lead EKG showed no acute ischemic changes. Troponin negative 3. Patient was seen and evaluated by cardiology. Echo shows an EF of 25-30% with wall motion abnormality. Patient underwent cardiac catheterization on 10/13/2079 which revealed evidence of 90% lesion in the LAD recommendation by cardiology was to discharge patient and he will be brought back electively for atherectomy next week 3. Essential hypertension: Blood pressure within acceptable range. Coreg 3.125 mg twice daily was added to her medication regimen he was given a prescription at the time of discharge 4. Alcohol abuse: Counseled to quit. Start CIWA protocol as needed. Given a prescription for Xanax 0.25 mg every 6 hours when necessary at the time of discharge 5. Mixed hyperlipidemia, continue statin, statin change to Lipitor 80 mg once daily 6. Nicotine dependence: Patient counseled in length to quit smoking counseling more than 10 minutes during this admission he had the nicotine patch 21 g applied throughout this admission he was given a prescription for nicotine patches at the time of discharge Hospital course: This is a 57-year-old gentleman with past medical history noted below significant for essential hypertension, tobacco abuse, and daily alcohol use who presented to the emergency room with blurred and double vision. Patient said that his symptoms started all of a sudden this morning when he noted that he was seeing everything in double. He denies any significant headache. He said it's easier for him to cover his left eye and focus with the right eye. He never had similar problems in the past. He was evaluated in the emergency room and computed tomography scan of the brain showed no acute findings. There was an area of calcification in the left periventricular white matter with questionable vascular malformation. Patient was also describing some chest discomfort and pressure at 12 leads EKG showed no acute ischemic changes with a left bundle branch block. His troponin was negative. He is currently chest pain-free. Blood pressure not well controlled on presentation. Patient said that his symptoms are persistent and he is still seeing double. No new other symptoms of numbness or tingling otherwise. No muscle weakness. No focal neurological deficit 10/10/2017 patient reporting improvement in his vision. He states that's almost back to normal. He is no longer having any of the chest pain or chest pressure. He is scheduled for an MRI/MRA of the brain and echocardiogram today. Troponins were negative 3 sets. Carotid Doppler shows less than 50% stenosis bilaterally in the internal carotid arteries. Patient denies any weakness in the extremities. Denies any nausea or vomiting. Denies any chest pain or shortness of breath. Denies any burning with urination and reports having regular bowel movements. 10/11/2017 patient's vision has returned to normal. He is eager for discharge home. Initially anticipated discharge for today. However, echo showing an EF of 25-30% with wall motion abnormality. Discussed with cardiology nurse practitioner. They want to keep patient in hospital for further evaluation. Patient denies any chest pain or shortness breath. Denies any nausea or vomiting. Reporting having regular bowel movements. Denies any difficulty urinating. On 10/12/2017 patient underwent cardiac catheterization which revealed 90% calcified lesion in the LAD the right coronary artery and the circumflex artery were clear. Recommendation by cardiology to discharge patient to home today and he will be brought back electively next week for atherectomy. Patient was stable he was chest pain-free he will be discharged home today. Patient Condition at Discharge: Good Plan - Discharge Summary New Discharge Prescriptions: New ALPRAZolam [Xanax] 0.25 mg PO Q6HR PRN tab PRN Reason: Mild Anxiety Aspirin 81 mg PO DAILY chew Atorvastatin [Lipitor] 80 mg PO HS tab Carvedilol [Coreg] 3.125 mg PO BID-W/MEALS tab Multivitamins, Thera [Multivitamin (formulary)] 1 each PO DAILY@1200 tab Nicotine 21Mg/24Hr Patch [Habitrol] 1 patch TRANSDERM DAILY patch Nitroglycerin Sl Tabs [Nitrostat] 0.4 mg SUBLINGUAL Q5M PRN tab PRN Reason: Chest Pain Thiamine [Vitamin B-1] 100 mg PO BID@1200,1700 tab Continue Lisinopril-Hctz 20-25 mg [Zestoretic 20-25] 1 tab PO DAILY metFORMIN HCL [metFORMIN HCL ER] 750 mg PO DAILY #0 Discontinued Simvastatin [Zocor] 40 mg PO HS Discharge Medication List Lisinopril-Hctz 20-25 mg [Zestoretic 20-25] 1 tab PO DAILY 10/09/17 [History] ALPRAZolam [Xanax] 0.25 mg PO Q6HR PRN tab 10/12/17 [Rx] Aspirin 81 mg PO DAILY chew 10/12/17 [Rx] Atorvastatin [Lipitor] 80 mg PO HS tab 10/12/17 [Rx] Carvedilol [Coreg] 3.125 mg PO BID-W/MEALS tab 10/12/17 [Rx] Multivitamins, Thera [Multivitamin (formulary)] 1 each PO DAILY@1200 tab [Rx] Nicotine 21Mg/24Hr Patch [Habitrol] 1 patch TRANSDERM DAILY patch 10/12/17 [Rx] Nitroglycerin Sl Tabs [Nitrostat] 0.4 mg SUBLINGUAL Q5M PRN tab 10/12/17 [Rx] Thiamine [Vitamin B-1] 100 mg PO BID@1200,1700 tab 10/12/17 [Rx] metFORMIN HCL [metFORMIN HCL ER] 750 mg PO DAILY #0 10/12/17 [Rx] Follow up Appointment(s)/Referral(s): Rubia Martinez DO [Primary Care Provider] - 10/24/17 11:30 am (Tuesday Earliest available appointment) Caitlin Bang MD [STAFF PHYSICIAN] - 10/31/17 3:00 pm (Tuesday) Patient Instructions/Handouts: *Surgery [facility] - After Heart Catheterization - Core Maker Instructions, Heart Healthy Diet (DC), Diplopia (DC) Activity/Diet/Wound Care/Special Instructions: No follow up needed with neurology per Dr. Leigh.
--- NOTE | 2017-10-12 18:57 | PN ---
PROGRESS NOTE I came in to see Mr. Blood and his . This gentleman had cardiac catheterization by Dr. Yuly Bang, which revealed a proximal LAD lesion which was heavily calcified of 90%. The calcification also extends to the distal left main. The circumflex which is dominant and RCA which is nondominant, did not have significant disease. There was moderate plaque noted in both vessels. I am recommending intervention of the LAD. I am suggesting orbital atherectomy followed by stenting. The rationale, risks, benefits and options including the risk of abruptly closure requiring emergency bypass surgery were discussed with the patient and . I expect 90-95% success rate. The patient and understand the details and wished to proceed with the procedure which will be scheduled for October 18. The patient will have a CBC and BMP on October 14. Have encouraged him to call me if he has any questions, concerns or problem. His right groin is clean and dry with a good pulse. MMODL / IJN: [id number] /
== END 2017-10-12 18:30 | disposition home or self-care (01) | DRG 69 ==
LOC: EC 02:51 → 6SEL 04:41 → OBSVTOIN 10-11 14:49
PROVIDERS: ADMIT Internal Medicine; ATTEND Internal Medicine
PROC: B211YZZ Fluoroscopy of Multiple Coronary Arteries using Other Contrast (ICD-10-PCS; 2017-10-12)
PROC: 4A023N7 Measurement of Cardiac Sampling and Pressure, Left Heart, Percutaneous Approach (ICD-10-PCS; principal; 2017-10-12 09:50)
DX: G45.9 Transient cerebral ischemic attack, unspecified (principal); I42.9 Cardiomyopathy, unspecified; E78.2 Mixed hyperlipidemia; I25.10 Atherosclerotic heart disease of native coronary artery without angina pectoris; R40.2142 Coma scale, eyes open, spontaneous, at arrival to emergency department; R40.2362 Coma scale, best motor response, obeys commands, at arrival to emergency department; R40.2252 Coma scale, best verbal response, oriented, at arrival to emergency department; E11.9 Type 2 diabetes mellitus without complications; I44.7 Left bundle-branch block, unspecified; I10 Essential (primary) hypertension; F17.210 Nicotine dependence, cigarettes, uncomplicated; F10.10 Alcohol abuse, uncomplicated; Z71.6 Tobacco abuse counseling; Z79.84 Long term (current) use of oral hypoglycemic drugs; Z71.41 Alcohol abuse counseling and surveillance of alcoholic; Z79.899 Other long term (current) drug therapy; Z88.2 Allergy status to sulfonamides; Z82.49 Family history of ischemic heart disease and other diseases of the circulatory system; Z83.3 Family history of diabetes mellitus; Z83.49 Family history of other endocrine, nutritional and metabolic diseases; Z82.3 Family history of stroke
CPT/HCPCS: 36415; 70450; 70549; 70553; 71046; 80048; 80053; 80061; 82550; 82553; 83735; 84484; 85025; 85610; 85730; 93005; 93306; 93458; 93880; 94760; 96361; 96374; 99285

== ENCOUNTER → 2017-10-14 | Outpatient (CLI) | payer BC ==
[2017-10-14 08:02] LABS: HCT 45.3 % (39.0-53.0); MCH 30.1 pg (25.0-35.0); MCHC 33.1 g/dL (31.0-37.0); MCV 90.9 fL (80.0-100.0); Mean Platelet Volume 9.5; Platelet Count 173 k/uL (150-450); RBC 4.99 m/uL (4.30-5.90); RDW 12.9 % (11.5-15.5)
[2017-10-14 08:17] LABS: Anion Gap 14 mmol/L; Blood Urea Nitrogen 21 mg/dL (9-20); Calcium 9.6 mg/dL (8.4-10.2); Carbon Dioxide 24 mmol/L (22-30); Chloride 102 mmol/L (98-107); Glucose 120 mg/dL (74-99); Potassium 4.3 mmol/L (3.5-5.1); Sodium 140 mmol/L (137-145)
== END | disposition home or self-care (01) ==
LOC: LABWHC1 07:47
PROVIDERS: ATTEND Internal Medicine Interventional Cardiology
DX: I25.10 Atherosclerotic heart disease of native coronary artery without angina pectoris (principal)
CPT/HCPCS: 36415; 80048; 85027

== ENCOUNTER 2017-10-18 06:20 | Day surgery (SDC) | payer BC ==
[2017-10-18] MEDS ORDERED: ALPRAZolam 0.25 MG TAB PO PRN (06:29)
[2017-10-18] MEDS ORDERED: ATORVASTATIN 80 MG TAB PO STA (06:29)
[2017-10-18] MEDS ORDERED: SODIUM CHLORIDE 0.9% 1,000 ML in EMPTY BAG 1 BAG IV ONE (06:29)
[2017-10-18] MEDS ORDERED: ALPRAZolam 0.5 MG TAB PO PRN (06:29)
[2017-10-18] MEDS ORDERED: NITROGLYCERIN SL TABS 0.4 MG TAB SUBLINGUAL PRN ×3 (06:29→09:38)
[2017-10-18] MEDS ORDERED: ASPIRIN 325 MG TAB PO STA (06:29)
[2017-10-18 07:01] LABS: Glucose,Whole Blood 122 mg/dL (75-99)
[2017-10-18] MEDS ORDERED: IV FLUID CONTINUATION 950 ML IV ONE (07:10)
[2017-10-18] MEDS ORDERED: MIDAZOLAM 2 MG/2 ML VIAL ONE (07:17)
[2017-10-18] MEDS ORDERED: diphenhydrAMINE 50 MG/ML 1 ML VIAL ONE (07:17)
[2017-10-18] MEDS ORDERED: LIDOCAINE 2% INJ 20 MG/ML (20 ML MDV) ONE (07:17)
[2017-10-18] MEDS ORDERED: diphenhydrAMINE 50 MG/ML 1 ML VIAL IVP ONE (07:21)
[2017-10-18] MEDS: MIDAZOLAM 2 MG/2 ML VIAL IV ONE ×2 (07:21→07:34)
[2017-10-18] MEDS ORDERED: LIDOCAINE 2% INJ 20 MG/ML SQ ONE (07:29)
[2017-10-18] MEDS ORDERED: fentaNYL (PF) 50 MCG/ML 2 ML AMP ONE (07:36)
[2017-10-18] MEDS ORDERED: fentaNYL (PF) 50 MCG/ML 2 ML AMP IV ONE (07:38)
[2017-10-18] MEDS ORDERED: BIVALIRUDIN BOLUS 250 MG/50 ML IV ONE (07:51)
[2017-10-18] MEDS ORDERED: BIVALIRUDIN 250 MG in SODIUM CHLORIDE 0.9% 40 ML IV ONE (07:52)
[2017-10-18] MEDS ORDERED: IOPAMIDOL-370 100ML BTL INJ ONE ×2 (08:34→08:58)
[2017-10-18] MEDS: NITROGLYCERIN 1000MCG/10ML SYRINGE IV ONE ×2 (08:36→08:53)
[2017-10-18] MEDS ORDERED: TICAGRELOR 90 MG TAB ONE (08:53)
[2017-10-18] MEDS ORDERED: MORPHINE SULF 5MG/10ML VL ONE (08:58)
[2017-10-18] MEDS ORDERED: TICAGRELOR 90 MG TAB PO ONE (09:00)
[2017-10-18] MEDS ORDERED: MORPHINE SULF 5MG/10ML VL IV ONE (09:00)
[2017-10-18] MEDS ORDERED: RX INFO: IV CONTRAST WAS GIVEN 1 EACH MISC MISCELLANE PRN (09:35)
[2017-10-18] MEDS ORDERED: ZOLPIDEM 5 MG TAB PO PRN (09:35)
[2017-10-18] MEDS ORDERED: MAG HYDROX/AL HYDROX/SIMETH 30 ML CUP PO PRN (09:35)
[2017-10-18] MEDS ORDERED: ATROPINE SULFATE 0.1 MG/ML 10ML SYRINGE IV PRN (09:35)
--- NOTE | 2017-10-18 09:45 | HP ---
HISTORY AND PHYSICAL This is a 57-year-old gentleman who was recently in the hospital with unstable angina, had a cardiac cath which revealed a proximal LAD lesion which was heavily calcified 80% or so, which was also a long lesion that stopped just before a major diagonal branch. However, there was some disease after the diagonal as well, but the diagonal branch origin was not compromised. I saw the patient prior to discharge and explained to him that we will perform orbital atherectomy and stenting and brought him for the procedure electively. The rationale for the procedure, risks, benefits, options were carefully explained to the patient and . They understood all details and wished to proceed with the procedure. This patient also has other issues in the form of alcoholism and smoking, but he has stopped smoking since he was discharged from this hospital. At the time of my evaluation this morning he is asymptomatic. His right groin has area of ecchymosis but mild tenderness. He has no chest pain or shortness of breath. PHYSICAL EXAMINATION: Physical examination revealed a blood pressure of 128/70, pulse rate was about 60 per minute. HEENT: Unremarkable. Fundus was not examined by me. NECK: Supple. There is no JVD. I do not hear any carotid bruit. There is no thyromegaly. Heart exam reveals S1, S2 without significant murmurs. Lungs are clear. Abdomen is soft nontender. Right groin has ecchymosis. Left groin pulses are good. Right groin pulse is also good distally. There is a small hematoma noted. Central nervous system is normal. EKG revealed sinus mechanism with a left bundle branch block pattern. IMPRESSION: Recent admission to the hospital with unstable angina. Coronary angiography revealed a significant lesion in the proximal left anterior descending artery with heavy calcification. RECOMMENDATION: I have advised the patient orbital atherectomy and and brought in for the procedure electively. Risks, benefits, options and rationale were explained. Patient and understood all details and wished to proceed with the procedure. MMODL / IJN: [id number] /
--- NOTE | 2017-10-18 10:06 | PCN ---
PROCEDURE NOTE DATE OF SERVICE: 10/18/2017. PROCEDURE: 1. Transvenous temporary pacemaker placement. 2. Orbital atherectomy and stenting of proximal left anterior descending. PERFORMED BY: Dr. Jh English. SEDATION: Moderate conscious sedation time was 1 hour 39 minutes. The patient was sedated with Versed and fentanyl and was also given Benadryl intravenously. His oxygen saturation, EKG and hemodynamics were monitored closely. CLINICAL INFORMATION: Mr. Raphael Blood is a 57-year-old gentleman who was recently hospitalized with unstable angina, had a proximal LAD heavily calcified lesion, was brought in for elective PCI. Risks, benefits, options and rationale were explained. PROCEDURE NOTE: Under local anesthesia and strict aseptic precautions and local anesthesia, from the left femoral approach, a 6-English introducer was placed in the left femoral vein and a 6-English introducer into the left femoral artery. I advanced a balloon tipped 5-English pacemaker and positioned in the right ventricular apex under fluoroscopic guidance. The threshold was 0.8 mV. The pacemaker was set up at a backup rate of 40 beats per minute with a mA of 5. I then advanced a 6-English standard left Sheryl guide catheter and cannulated the left coronary artery. Using a Whisper wire, I crossed the LAD lesion and wire was kept distally. Using a straight Super Cross catheter, I exchanged the Whisper wire for a Viper wire. The viper wire was kept distally. I then advanced the orbital atherectomy catheter under fluoroscopic guidance and I performed an orbital atherectomy of the lesion. I did about 3 passes initially and then 2 additional passes in the proximal segment which was heavily calcified. All these were performed at a low speed. The patient tolerated the procedure well. The orbital atherectomy catheter was then exchanged carefully for a SuperCross catheter and then I took the Viper wire out and advanced the Whisper wire and kept the wire distally in the LAD. I performed PTCA of the proximal LAD with a 15 mm long NC Trek balloon at 13 atmospheres. Subsequently I noted that the lesion seemed to extend beyond the diagonal branch as well. I also wired the diagonal branch and I felt that the diagonal did not have significant lesion and I could safely it, even though it was of good caliber there was no ostial disease in the diagonal branch. I then deployed an 18 mm long 2.75 caliber Xience stent at 13 atmospheres. A good angiographic result was achieved, but the proximal half of the stent still had some narrowing in it. I then advanced a 3.0 caliber 8 mm NC Trek balloon and went up to 14 atmospheres to address the area where there was incomplete expansion. With this I achieved a full expansion with an excellent angiographic appearance and flow. The wire in the diagonal branch was taken out prior to the stent deployment. The patient received Angiomax bolus and infusion. He also received 180 mg of Brilinta orally. Final images reveal excellent angiographic result without any compromise of the diagonal branch and remarkably good angiographic appearance and flow of the LAD lesion. The residual stenosis was 0%. Diagonal flow and caliber of the diagonal branch was well preserved. Excellent angiographic result was achieved. I used an Angio-Seal to secure hemostasis of the left femoral artery. The left femoral venous sheath will be pulled and manual compression applied soon. Results were discussed with the patient and and I expect he will be discharged tomorrow if he remains stable. MMODL / IJN: [id number] /
[2017-10-18] MEDS: SODIUM CHLORIDE 0.9% 1,000 ML IV SCH ×4 (15:57→23:42)
[2017-10-18] MEDS: THIAMINE 100 MG TAB PO SCH ×2 (16:02→16:03)
[2017-10-18] MEDS: MULTIVITAMINS, THERA 1 EACH TAB PO SCH (16:02)
[2017-10-18] MEDS: CARVEDILOL 3.125 MG TAB PO SCH (16:02)
[2017-10-18] MEDS ORDERED: LIDOCAINE 2% SYG (PF) 100 MG/5 ML IV STA (16:43)
[2017-10-18 17:11] LABS: Glucose,Whole Blood 103 mg/dL (75-99)
[2017-10-18] MEDS ORDERED: LIDOCAINE-D5W PMX 2G/500ML 2,000 MG in DEXTROSE/WATER 1 500ML.BAG IV SCH (17:15)
[2017-10-18 20:51] LABS: Anion Gap 10 mmol/L; Blood Urea Nitrogen 15 mg/dL (9-20); Calcium 9.2 mg/dL (8.4-10.2); Carbon Dioxide 25 mmol/L (22-30); Chloride 104 mmol/L (98-107); Glucose 119 mg/dL (74-99); Magnesium 2.1 mg/dL (1.6-2.3); Potassium 4.2 mmol/L (3.5-5.1); Sodium 139 mmol/L (137-145)
[2017-10-18] MEDS ORDERED: ATORVASTATIN 80 MG TAB PO SCH ×2 (21:00)
[2017-10-19 05:59] LABS: Glucose,Whole Blood 118 mg/dL (75-99)
[2017-10-19] MEDS: CARVEDILOL 3.125 MG TAB PO SCH (06:31)
[2017-10-19 06:52] LABS: Basophils % (A) 0 %; Eosinophils # (A) 0.2 k/uL (0-0.7); Eosinophils % (A) 3 %; HCT 42.5 % (39.0-53.0); HGB 14.2 gm/dL (13.0-17.5); Lymphocytes # (A) 1.7 k/uL (1.0-4.8); Lymphocytes % (A) 25 %; MCH 30.3 pg (25.0-35.0); MCHC 33.4 g/dL (31.0-37.0); MCV 90.8 fL (80.0-100.0); Monocytes # (A) 0.4 k/uL (0-1.0); Monocytes % (A) 6 %; Neutrophils # (A) 4.2 k/uL (1.3-7.7); Neutrophils % (A) 64 %; Platelet Count 161 k/uL (150-450); RBC 4.68 m/uL (4.30-5.90); RDW 12.8 % (11.5-15.5); WBC 6.6 k/uL (3.8-10.6)
[2017-10-19 07:04] LABS: Anion Gap 13 mmol/L; Blood Urea Nitrogen 11 mg/dL (9-20); Calcium 9.5 mg/dL (8.4-10.2); Carbon Dioxide 26 mmol/L (22-30); Chloride 104 mmol/L (98-107); Glucose 123 mg/dL (74-99); Potassium 4.5 mmol/L (3.5-5.1); Sodium 143 mmol/L (137-145)
[2017-10-19] MEDS ORDERED: OMEGA PO SCH (09:00)
[2017-10-19] MEDS ORDERED: TICAGRELOR 90 MG TAB PO SCH (09:00)
[2017-10-19] MEDS ORDERED: FATTY ACIDS PO SCH (09:00)
[2017-10-19] MEDS ORDERED: LISINOPRIL-HCTZ 20-25 MG 1 EACH TAB PO SCH (09:00)
[2017-10-19] MEDS ORDERED: NICOTINE 21MG/24HR PATCH TRANSDERM SCH (09:00)
[2017-10-19] MEDS ORDERED: ASPIRIN 81 MG PO SCH (09:00)
[2017-10-19] MEDS: MULTIVITAMINS, THERA 1 EACH TAB PO SCH (11:04)
[2017-10-19] MEDS: THIAMINE 100 MG TAB PO SCH (11:04)
[2017-10-19 11:54] LABS: Glucose,Whole Blood 107 mg/dL (75-99)
--- NOTE | 2017-10-19 13:31 | PN ---
PROGRESS NOTE This patient was recently admitted with cardiomyopathy. The patient was found to have ischemic cardiomyopathy. Patient had a high-grade lesion in the LAD and patient underwent atherectomy and stent placement. Patient's ejection fraction is 30-35%. During the previous admission, patient had elevated troponin suggestive of non-Q-wave myocardial infarction. The patient had yesterday a long run of nonsustained ventricular tachycardia. An echocardiogram is repeated. Patient again shows extensive particularly apical hypokinesia with ejection fraction around 30-35%. In view of the episodes of nonsustained ventricular tachycardia, the patient is advised to have a vest placement. The patient will be discharged home on the vest and we will follow his echo as an outpatient. MMJOSE / EUSEBION: [id number] /
--- NOTE | 2017-10-19 14:00 | P.PN ---
Subjective Progress Note Date: 10/19/17 Is a 57-year-old gentleman who was recently in the hospital with unstable angina, he underwent a cardiac catheterization which revealed a proximal LAD lesion, he was brought back to the hospital on this occasion to undergo orbital arthrectomy and stenting of the LAD. This was yesterday, patient was seen and examined this morning, denies any chest pain or difficulty in breathing. He's been up ambulating without any difficulty. Echocardiogram with Doppler study performed on this recent admission showed an ejection fraction of 25-30%, repeat echo performed on this admission continued to show significant reduction in LV function. Patient was also noted on the monitor to have a long run of nonsustained ventricular tachycardia. For this reason the patient was advised to have a LifeVest placed prior to discharge for prevention of sudden cardiac . Blood Pressure 138/70 with a heart rate in the 60s, 99 % on room air. CBC is normal, sodium 143, potassium 4.5, BUN 11, creatinine0.7. Magnesium 2.1. Objective - Vital Signs Vital signs: Vital Signs Temp 97.3 F L 10/19/17 11:05 Pulse 65 10/19/17 11:05 Resp 18 10/19/17 11:05 BP 138/70 10/19/17 11:05 Pulse Ox 99 10/19/17 11:05 Intake & Output 10/18/17 10/19/17 10/19/17 18:59 06:59 18:59 Intake Total 1057.99 700 Output Total 1200 Balance -142.01 700 Weight 94.6 kg 94.8 kg Intake: IV 497.99 Sodium Chloride 0.9% 1, 100 000 ml @ 75 mls/hr IV . [id number] LAUREANO Rx#:[id number] Intake, IV Titration 400 Amount Sodium Chloride 0.9% 1, 400 000 ml @ 75 mls/hr IV . [id number] LAUREANO Rx#:[id number] Oral 560 300 Output: Urine 1200 Other: Voiding Method Toilet # Voids 1 1 1 - Exam PHYSICAL EXAMINATION: HEENT: Head is atraumatic, normocephalic. Pupils equal, round. Neck is supple. There is no elevated jugular venous pressure. HEART EXAMINATION: Heart S1, S2 normal. No murmur or gallop heard. CHEST EXAMINATION: Lungs are clear to auscultation and precussion. No chest wall tenderness is noted on palpation or with deep breathing. ABDOMEN: Soft, nontender. Bowel sounds are heard. No organomegaly noted. Left groin is soft, no evidence of any hematoma. EXTREMITIES: 2+ peripheral pulses with no evidence of peripheral edema and no calf tenderness noted. NEUROLOGIC patient is awake, alert and oriented -3. . - Labs CBC & Chem 7: 10/19/17 05:51 10/19/17 05:51 Labs: Abnormal Lab Results - Last 24 Hours (Table) 10/18/17 10/18/17 10/19/17 Range/Units 16:50 20:16 05:51 Glucose 119 H 123 H (74-99) mg/dL POC Glucose (mg/dL) 103 H (75-99) mg/dL 10/19/17 10/19/17 Range/Units 05:58 11:52 Glucose (74-99) mg/dL POC Glucose (mg/dL) 118 H 107 H (75-99) mg/dL Assessment and Plan Plan: Assessment and plan #1 recent non-Q-wave myocardial infarction, status post orbital arthrectomy and stenting of the LAD #2 ischemic cardiomyopathy, ejection fraction 25-30%. #3 nicotine dependence #4 EtOH use #5 hyperlipidemia #6 nonsustained ventricular tachycardia Plan Patient may be able to be discharged home today after the LifeVest arrived. Follow-up appointment will be made in the office post discharge. We will increase the dose of Coreg to 6.25 mg twice a day for one week then 12-1/2 mg twice a day. Continue aspirin 81 mg daily, Lipitor 80 mg daily, lisinopril 20 mg daily, Brilinta 90 mg one tablet by mouth twice a day, Habitrol patch, and sublingual nitroglycerin as needed for chest pain. DNP note has been reviewed, I agree with a documented findings and plan of care. Patient was seen and examined.
[2017-10-19 14:26] VITALS: BMI 29.9
--- NOTE | 2017-10-19 15:50 | ECHOF ---
Referral Reason:repeat MEASUREMENTS -------- HEIGHT: 152.4 cm WEIGHT: 94.3 kg BP: 142/66 RVIDd: 3.0 cm (< 3.3) IVSd: 1.2 cm (0.6 - 1.1) LVIDd: 5.3 cm (3.9 - 5.3) LVPWd: 1.1 cm (0.6 - 1.1) IVSs: 1.4 cm LVIDs: 4.4 cm LVPWs: 1.1 cm LA Diam: 3.6 cm (2.7 - 3.8) LAESV Index (A-L): 40.56 ml/m Ao Diam: 3.1 cm (2.0 - 3.7) AV Cusp: 2.2 cm (1.5 - 2.6) LA Diam: 3.6 cm (2.7 - 3.8) MV EXCURSION: 17.701 mm (> 18.000) MV EF SLOPE: 83 mm/s (70 - 150) EPSS: 1.1 cm MV E Adan: 0.49 m/s MV DecT: 260 ms MV A Adan: 0.84 m/s MV E/A Ratio: 0.59 FINDINGS -------- Sinus rhythm. This was a techncally difficult study with suboptimal views, , Lumason utilized for enhancement of im ages. The left ventricular size is normal. There is borderline concentric left ventricular hypertrophy. Overall left ventricular systolic function is mild-moderately impaired with, an EF between 40 - 45 % . Lateral hypokinesis Septal Hypokinesis The right ventricle is normal in size. LA is severely dilated >40 ml/m2 The right atrial size is normal. 5.0mg OF Lumason UTLIZED: 2 OR MORE WALL SEGMENTS NOT VISUALIZED. The aortic valve is trileaflet, and appears structurally normal. No aortic stenosis or regurgitation. Mild mitral annular calcification present. Mild mitral regurgitation is present. Mild tricuspid regurgitation present. There is no evidence of pulmonary hypertension. The right v entricular systolic pressure, as measured by Doppler, is {RVSP}. There is no pulmonic regurgitation present. The aortic root size is normal. There is no pericardial effusion. CONCLUSIONS -------- 1. This was a techncally difficult study with suboptimal views, , Lumason utilized for enhancement of images. 2. The left ventricular size is normal. 3. There is borderline concentric left ventricular hypertrophy. 4. Overall left ventricular systolic function is mild-moderately impaired with, an EF between 40 - 45 %. 5. Lateral hypokinesis 6. Septal Hypokinesis 7. The right ventricle is normal in size. 8. LA is severely dilated >40 ml/m2 9. 5.0mg OF Lumason UTLIZED: 2 OR MORE WALL SEGMENTS NOT VISUALIZED. 10. The aortic valve is trileaflet, and appears structurally normal. No aortic stenosis or regurgitat ion. 11. Mild mitral annular calcification present. 12. Mild mitral regurgitation is present. 13. Mild tricuspid regurgitation present. 14. There is no evidence of pulmonary hypertension. 15. The right ventricular systolic pressure, as measured by Doppler, is {RVSP}. 16. There is no pulmonic regurgitation present. 17. The aortic root size is normal. 18. There is no pericardial effusion. SHUTTLE OPERATOR: Lacey Lim RDCS
[2017-10-19 15:53] VITALS: BP 131/70; PULSE 63; RESP 16; TEMP 97.6
[2017-10-19] MEDS ORDERED: CARVEDILOL 6.25 MG TAB PO SCH (17:30)
[2017-10-27] MEDS ORDERED: CARVEDILOL 12.5 MG TAB PO SCH (07:30)
== END 2017-10-19 17:50 | disposition home or self-care (01) ==
LOC: CATHCVL 06:20 → 6SEL 09:00 → CATHCVL 10-19 17:50
PROVIDERS: ATTEND Internal Medicine Interventional Cardiology
DX: I25.110 Atherosclerotic heart disease of native coronary artery with unstable angina pectoris (principal); I25.84 Coronary atherosclerosis due to calcified coronary lesion; Z87.891 Personal history of nicotine dependence; I08.1 Rheumatic disorders of both mitral and tricuspid valves; I25.5 Ischemic cardiomyopathy; I44.7 Left bundle-branch block, unspecified; E78.5 Hyperlipidemia, unspecified
CPT/HCPCS: 93306; 80048 ×2; 83735; 85025; C9602; C1760; C1769 ×6; C1887 ×2; C1725 ×2; C1894; C1874; C1714; J2001 ×3; J2250; J1200; J3010; J0583; Q9950; Q9967; J2270; 92924

== ENCOUNTER 2017-11-12 12:43 | Emergency (ER) | payer BC ==
[2017-11-12 12:54] VITALS: RESP 18
[2017-11-12 13:10] LABS: Basophils % (A) 0 %; Eosinophils # (A) 0.4 k/uL (0-0.7); Eosinophils % (A) 5 %; HCT 37.9 % (39.0-53.0); Lymphocytes # (A) 1.9 k/uL (1.0-4.8); Lymphocytes % (A) 25 %; MCH 30.6 pg (25.0-35.0); MCHC 34.3 g/dL (31.0-37.0); MCV 89.5 fL (80.0-100.0); Mean Platelet Volume 8.8; Monocytes # (A) 0.3 k/uL (0-1.0); Monocytes % (A) 4 %; Neutrophils # (A) 4.9 k/uL (1.3-7.7); Neutrophils % (A) 64 %; Platelet Count 177 k/uL (150-450); RBC 4.23 m/uL (4.30-5.90); WBC 7.7 k/uL (3.8-10.6)
--- NOTE | 2017-11-12 13:19 | XR ---
EXAMINATION TYPE: XR chest 2V DATE OF EXAM: 11/12/2017 COMPARISON: 10/09/2017 HISTORY: Chest pain TECHNIQUE: Frontal and lateral views of the chest are obtained. FINDINGS: There is no focal air space opacity. No evidence for pneumothorax. No pleural effusion. The cardiac silhouette size is within normal limits. The osseous structures are grossly intact. IMPRESSION: 1. No acute cardiopulmonary process.
[2017-11-12 13:20] LABS: ALT 49 U/L (21-72); AST 24 U/L (17-59); Albumin 4.5 g/dL (3.5-5.0); Alkaline Phosphatase 58 U/L (38-126); Anion Gap 13 mmol/L; Blood Urea Nitrogen 13 mg/dL (9-20); Carbon Dioxide 27 mmol/L (22-30); Chloride 101 mmol/L (98-107); Glucose 114 mg/dL (74-99); Lipase 120 U/L (23-300); Magnesium 2.1 mg/dL (1.6-2.3); Sodium 141 mmol/L (137-145); Total Bilirubin 0.7 mg/dL (0.2-1.3); Total Protein 6.9 g/dL (6.3-8.2)
[2017-11-12 13:25] LABS: Creatine Kinase 82 U/L (55-170)
[2017-11-12 13:26] LABS: INR 1.1 (<1.2); Partial Thromboplastin Time 24.8 sec (22.0-30.0); Prothrombin Time 10.5 sec (9.0-12.0)
--- NOTE | 2017-11-12 13:33 | ED ---
General Adult HPI - General Chief complaint: Chest Pain Stated complaint: Chest pain Time Seen by Provider: 11/12/17 12:47 Source: patient, RN notes reviewed, old records reviewed Mode of arrival: wheelchair Limitations: no limitations - History of Present Illness Initial comments: This is a 57-year-old male to the ER for evaluation. Patient presents here today for evaluation of chest pain, thinks LifeVest may have gone off. Patient hasn't no significant shortness of breath no recent change in medications. No fever cough or congestion. No recent travel history. No significant sick contacts. Patient stated also has gone off in the past, no other change in symptoms. Patient does still complain of chest pain currently - Related Data Home Medications Medication Instructions Recorded Confirmed Lisinopril-Hctz 20-25 mg 1 tab PO DAILY 10/09/17 10/13/17 [Zestoretic 20-25] Delta-3 Fatty Acids [Delta-3] 500 mg PO DAILY 10/18/17 10/18/17 Ubidecarenone [Co Q-10] 200 mg PO DAILY 10/18/17 10/18/17 Previous Rx's Medication Instructions Recorded ALPRAZolam [Xanax] 0.25 mg PO Q6HR PRN tab 10/12/17 Aspirin 81 mg PO DAILY chew 10/12/17 Atorvastatin [Lipitor] 80 mg PO HS tab 10/12/17 Multivitamins, Thera [Multivitamin 1 each PO DAILY@1200 tab 10/12/17 (formulary)] Nicotine 21Mg/24Hr Patch [Habitrol] 1 patch TRANSDERM DAILY patch 10/12/17 Nitroglycerin Sl Tabs [Nitrostat] 0.4 mg SUBLINGUAL Q5M PRN tab 10/12/17 Thiamine [Vitamin B-1] 100 mg PO BID@1200,1700 tab 10/12/17 metFORMIN HCL [metFORMIN HCL ER] 750 mg PO DAILY #0 10/12/17 Carvedilol [Coreg] 6.25 mg PO BID-W/MEALS #90 tab 10/19/17 Ticagrelor [Brilinta] 90 mg PO BID #60 tab 10/19/17 Allergies Allergy/AdvReac Type Severity Reaction Status Date / Time Sulfa (Sulfonamide Allergy Rash/Hives Verified 11/12/17 12:53 Antibiotics) Review of Systems ROS Statement: Those systems with pertinent positive or pertinent negative responses have been documented in the HPI. ROS Other: All systems not noted in ROS Statement are negative. 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 Past Anesthesia/Blood Transfusion Reactions: No Reported Reaction Past Psychological History: No Psychological Hx Reported Smoking Status: Former smoker Past Alcohol Use History: None Reported Past Drug Use History: None Reported - Past Family History Father Family Medical History: Coronary Artery Disease (CAD), Hyperlipidemia, Hypertension Additional Family Medical History / Comment(s): CABG Mother Family Medical History: Coronary Artery Disease (CAD), CVA/TIA, Diabetes Mellitus, Hyperlipidemia, Hypertension, Myocardial Infarction (NM) Additional Family Medical History / Comment(s): 7 stents Brother(s) Family Medical History: Diabetes Mellitus Additional Family Medical History / Comment(s): CABG Sister(s) Additional Family Medical History / Comment(s): CABG and valve General Exam Limitations: no limitations General appearance: alert, in no apparent distress Head exam: Present: atraumatic, normocephalic, normal inspection Eye exam: Present: normal appearance, PERRL, EOMI. Absent: scleral icterus, conjunctival injection, periorbital swelling ENT exam: Present: normal exam, mucous membranes moist Neck exam: Present: normal inspection. Absent: tenderness, meningismus, lymphadenopathy Respiratory exam: Present: normal lung sounds bilaterally. Absent: respiratory distress, wheezes, rales, rhonchi, stridor Cardiovascular Exam: Present: regular rate, normal rhythm, normal heart sounds. Absent: systolic murmur, diastolic murmur, rubs, gallop, clicks GI/Abdominal exam: Present: soft, normal bowel sounds. Absent: distended, tenderness, guarding, rebound, rigid Extremities exam: Present: normal inspection, full ROM, normal capillary refill. Absent: tenderness, pedal edema, joint swelling, calf tenderness Back exam: Present: normal inspection Neurological exam: Present: alert, oriented X3, CN II-XII intact Psychiatric exam: Present: normal affect, normal mood Skin exam: Present: warm, dry, intact, normal color. Absent: rash Course Vital Signs 11/12/17 11/12/17 12:47 13:34 Temperature 99.0 F Pulse Rate 51 L 50 L Respiratory 18 18 Rate Blood Pressure 190/83 156/70 O2 Sat by Pulse 100 98 Oximetry EKG Findings - EKG Comments: EKG Findings:: EKG shows sinus bradycardia rate of 52, [place] 144, QRS 150, QTc 442 Medical Decision Making - Lab Data Result diagrams: 11/12/17 12:55 11/12/17 12:55 Lab Results 11/12/17 11/12/17 11/12/17 Range/Units 12:55 12:55 12:55 WBC 7.7 (3.8-10.6) k/uL RBC 4.23 L (4.30-5.90) m/uL Hgb 13.0 (13.0-17.5) gm/dL Hct 37.9 L (39.0-53.0) % MCV 89.5 (80.0-100.0) fL MCH 30.6 (25.0-35.0) pg MCHC 34.3 (31.0-37.0) g/dL RDW 13.0 (11.5-15.5) % Plt Count 177 (150-450) k/uL Neutrophils % 64 % Lymphocytes % 25 % Monocytes % 4 % Eosinophils % 5 % Basophils % 0 % Neutrophils # 4.9 (1.3-7.7) k/uL Lymphocytes # 1.9 (1.0-4.8) k/uL Monocytes # 0.3 (0-1.0) k/uL Eosinophils # 0.4 (0-0.7) k/uL Basophils # 0.0 (0-0.2) k/uL PT (9.0-12.0) sec INR (<1.2) APTT (22.0-30.0) sec Sodium 141 (137-145) mmol/L Potassium 4.0 (3.5-5.1) mmol/L Chloride 101 (98-107) mmol/L Carbon Dioxide 27 (22-30) mmol/L Anion Gap 13 mmol/L BUN 13 (9-20) mg/dL Creatinine 0.75 (0.66-1.25) mg/dL Est GFR (CKD-EPI)AfAm >90 (>60 ml/min/1.73 sqM) Est GFR (CKD-EPI)NonAf >90 (>60 ml/min/1.73 sqM) Glucose 114 H (74-99) mg/dL Calcium 10.0 (8.4-10.2) mg/dL Magnesium 2.1 (1.6-2.3) mg/dL Total Bilirubin 0.7 (0.2-1.3) mg/dL AST 24 (17-59) U/L ALT 49 (21-72) U/L Alkaline Phosphatase 58 (38-126) U/L Total Creatine Kinase 82 (55-170) U/L CK-MB (CK-2) 0.7 (0.0-2.4) ng/mL CK-MB (CK-2) Rel Index 0.9 Troponin I <0.012 (0.000-0.034) ng/mL Total Protein 6.9 (6.3-8.2) g/dL Albumin 4.5 (3.5-5.0) g/dL Lipase 120 (23-300) U/L 11/12/17 Range/Units 12:55 WBC (3.8-10.6) k/uL RBC (4.30-5.90) m/uL Hgb (13.0-17.5) gm/dL Hct (39.0-53.0) % MCV (80.0-100.0) fL MCH (25.0-35.0) pg MCHC (31.0-37.0) g/dL RDW (11.5-15.5) % Plt Count (150-450) k/uL Neutrophils % % Lymphocytes % % Monocytes % % Eosinophils % % Basophils % % Neutrophils # (1.3-7.7) k/uL Lymphocytes # (1.0-4.8) k/uL Monocytes # (0-1.0) k/uL Eosinophils # (0-0.7) k/uL Basophils # (0-0.2) k/uL PT 10.5 (9.0-12.0) sec INR 1.1 (<1.2) APTT 24.8 (22.0-30.0) sec Sodium (137-145) mmol/L Potassium (3.5-5.1) mmol/L Chloride (98-107) mmol/L Carbon Dioxide (22-30) mmol/L Anion Gap mmol/L BUN (9-20) mg/dL Creatinine (0.66-1.25) mg/dL Est GFR (CKD-EPI)AfAm (>60 ml/min/1.73 sqM) Est GFR (CKD-EPI)NonAf (>60 ml/min/1.73 sqM) Glucose (74-99) mg/dL Calcium (8.4-10.2) mg/dL Magnesium (1.6-2.3) mg/dL Total Bilirubin (0.2-1.3) mg/dL AST (17-59) U/L ALT (21-72) U/L Alkaline Phosphatase (38-126) U/L Total Creatine Kinase (55-170) U/L CK-MB (CK-2) (0.0-2.4) ng/mL CK-MB (CK-2) Rel Index Troponin I (0.000-0.034) ng/mL Total Protein (6.3-8.2) g/dL Albumin (3.5-5.0) g/dL Lipase (23-300) U/L Disposition Clinical Impression: Left bundle branch block, Chest tightness, Chest pain Disposition: HOME SELF-CARE Condition: Good Instructions: Chest Pain (ED) Is patient prescribed a controlled substance at d/c from ED?: No Referrals: Rubia Martinez DO [Primary Care Provider] - 1-2 days
[2017-11-12 13:36] LABS: Creatine Kinase MB 0.7 ng/mL (0.0-2.4); Troponin I <0.012 ng/mL (0.000-0.034)
[2017-11-12 16:48] VITALS: BP 123/64; PULSE 59; TEMP 97.5
== END 2017-11-12 16:48 | disposition home or self-care (01) ==
LOC: EC 12:43
DX: I44.7 Left bundle-branch block, unspecified (principal); R07.89 Other chest pain; I10 Essential (primary) hypertension; Z95.818 Presence of other cardiac implants and grafts; Z87.891 Personal history of nicotine dependence; Z79.899 Other long term (current) drug therapy; Z88.2 Allergy status to sulfonamides
CPT/HCPCS: 36415; 71046; 80053; 82550; 82553; 83690; 83735; 84484; 85025; 85610; 85730; 93005; 99285

== ENCOUNTER → 2018-07-24 | Outpatient (CLI) | payer BC ==
--- NOTE | 2018-07-25 16:39 | MR ---
EXAMINATION TYPE: MR lumbar spine wo con DATE OF EXAM: 07/24/2018 COMPARISON: None HISTORY: 58-year-old male Severe Low Back Pain Mostly Right Side x2 months TECHNIQUE: Multiplanar, multisequence images of the lumbar spine were acquired. Findings: Vertebral body heights are preserved and alignment is maintained. Mild to moderate generative disc disease characterized by variable disc desiccation. Mild to moderate disc height loss at L5-S1. Bulging disks throughout the mid to lower lumbar spine. Hypertrophic facet arthropathy mid to lower lumbar spine with gadolinium ligamentum flavum thickening . Conus medullaris is normal. No suspicious bone marrow replacement. Some chronic small endplate Schmorl's nodes thoracolumbar junc tion and upper lumbar spine. No prevertebral or paravertebral soft tissue abnormality. At T12-L1, the spinal canal or foraminal stenosis. L1-L2, no spinal canal or foraminal stenosis. At L2-L3, minimal bulging disc without canal or foraminal stenosis. At L3-L4, mild bulging disc with ligamentum flavum thickening and facet arthropathy. Changes result i n minimal bilateral inferior foraminal narrowing. No spinal canal stenosis. At L4-L5, there is broad-based posterior disc protrusion with some inferior migration of disc materia l. Ligamentum flavum thickening and facet arthropathy. Changes result in mild bilateral neural forami nal stenosis but there may be abutment of the exiting bilateral L4 nerve roots on both sides, more so on the right. Refer to sagittal image 12 the circumferential attenuation of the thecal sac without s ignificant spinal canal stenosis. At L5-S1, bulging disc with facet arthropathy. Small posterior annular fissure is noted. Changes resu lts in mild right-sided neural foraminal stenosis. No spinal canal stenosis. IMPRESSION: 1. Moderate degenerative disc disease L5-S1 and then at L4-L5. Hypertrophic facet arthropathy and lig amentum flavum thickening mid to lower lumbar spine. 2. Disc protrusion at L4-L5 along with facet arthropathy causes mild bilateral neural foraminal steno sis but there appears to be abutment of the exiting L4 nerve roots on both sides, more so on the righ t. 3. Posterior annular fissure at L5-S1. 4. No large focal disc herniation or significant spinal canal stenosis. 5. Additional mild right-sided neural foraminal stenosis at L5-S1.
== END | disposition home or self-care (01) ==
LOC: RADMRIMAIN 13:33
PROVIDERS: ATTEND Family Medicine
DX: M48.061 Spinal stenosis, lumbar region without neurogenic claudication (principal); M48.07 Spinal stenosis, lumbosacral region; M51.26 Other intervertebral disc displacement, lumbar region; M51.37 Other intervertebral disc degeneration, lumbosacral region; M51.36 Other intervertebral disc degeneration, lumbar region; M47.816 Spondylosis without myelopathy or radiculopathy, lumbar region; M46.96 Unspecified inflammatory spondylopathy, lumbar region
CPT/HCPCS: 72148

== ENCOUNTER → 2018-10-19 | Outpatient (CLI) | payer BC | LOC: RADECHMAIN 11:35 | PROVIDERS: ATTEND Family Medicine | DX: I49.9 Cardiac arrhythmia, unspecified (principal); I49.1 Atrial premature depolarization | CPT/HCPCS: 93225; 93226 ==

== ENCOUNTER → 2018-11-10 | Outpatient (CLI) | payer BC ==
--- NOTE | 2018-11-10 11:42 | MR ---
EXAMINATION TYPE: MR cervical spine wo con DATE OF EXAM: 11/10/2018 COMPARISON: Previous exam 04/21/2016 HISTORY: Cervicalgia / Left shoulder pain TECHNIQUE: Multiplanar, multisequence images of the cervical spine were acquired. C2-C3: No evidence for degenerative disc disease. No disc bulge/herniation or protrusion. No Canal stenosis. Foramina are patent bilaterally. C3-C4: Facet arthropathy, uncovertebral joint hypertrophy results in mild foraminal encroachment. Sma ll disc bulge causes only slight anterior mass effect on the thecal sac anteriorly and centrally. C4-C5: Posterior central disc bulge may contact the anterior cervical cord. Uncovertebral joint hyper trophy and facet arthropathy results in some foraminal encroachment right greater than left as on wero or. C5-C6: Central posterior disc bulge causes anterior mass effect on the thecal sac. No significant comfort tral stenosis. Uncovertebral joint hypertrophy and facet arthropathy results in some mild foraminal e ncroachment bilaterally. C6-C7: Posterior broad-based disc bulge contacts anterior cervical cord as on prior exam. Suspect mil d bilateral foraminal encroachment is stable. C7-T1: No evidence for degenerative disc disease. No disc bulge/herniation or protrusion. No Canal stenosis. Foramina are patent bilaterally. Cervical segments are intact. There is stable alignment. Cervical spinal cord is of normal signal. Craniovertebral junction relationships are within normal limits. Loss of disc height and signal is greatest at C6-7 as on previous exam, there is endplate discogenic marrow signal change, spondylosis. There may be a thoracic scoliosis present. IMPRESSION: Findings are essentially stable as compared to prior exam. Degenerative disc disease and mild multile shayan foraminal encroachment. Possible thoracic scoliosis.
== END ==
LOC: RADMRIMAIN 09:27
PROVIDERS: ATTEND Family Medicine
DX: M50.323 Other cervical disc degeneration at C6-C7 level (principal)
CPT/HCPCS: 72141

== ENCOUNTER → 2018-12-01 | Outpatient (CLI) | payer BC ==
--- NOTE | 2018-12-03 15:16 | MR ---
EXAMINATION TYPE: MR shoulder LT wo con DATE OF EXAM: 12/01/2018 COMPARISON: None HISTORY: Left shoulder pain TECHNIQUE: Multiplanar, multisequence imaging of the left shoulder is performed without contrast. FINDINGS: Rotator Cuff: Abnormal increased signal is present within the rotator cuff, there is some thickening of the rotator cuff, partial full-thickness tear is suspected of the infraspinatus tendon posteriorly . There is some fluid signal in the subacromial subdeltoid bursa. Acromioclavicular Joint: Arthropathy changes are present causing mass effect on the musculotendinous junction of supraspinatus. Glenohumeral Joint: Intact Labrum: Suspect there may be of some labral foramen present, there is some increased intrasubstance s ignal within the superior labrum however with some irregularity, difficult to exclude small tear or f raying of the superior labrum Biceps Tendon: There is fluid signal along the course of the long head of biceps tendon, the tendon s hows a normal position within the bicipital groove Bone marrow signal: There are some pseudocysts present within the humeral head. Other: No additional significant abnormality is appreciated. IMPRESSION: Partial full-thickness tear is present the posterior aspect of the insertion of the infraspinatus ten don, there is associated tendinosis, probable partial tear of the supraspinatus tendon, possible unde rsurface tear or rim rent tear. Additional findings above. Correlate for possible impingement.
== END | disposition home or self-care (01) ==
LOC: RADMRIMAIN 06:35
PROVIDERS: ATTEND Family Medicine
DX: S46.012A Strain of muscle(s) and tendon(s) of the rotator cuff of left shoulder, initial encounter (principal); M19.012 Primary osteoarthritis, left shoulder; M85.422 Solitary bone cyst, left humerus

== ENCOUNTER → 2019-08-09 | Outpatient (CLI) | payer BC ==
--- NOTE | 2019-08-09 18:42 | CONS ---
CONSULTATION DATE OF SERVICE: 08/09/2019 This patient is a 59-year-old gentleman who has been evaluated in the sleep center for possible obstructive sleep apnea-hypopnea syndrome. HISTORY OF PRESENT ILLNESS/SLEEP-WAKE EVALUATION: Patient's usual sleep schedule is from around 7 or 7:30 p.m. until 1 or 2 a.m. No problems with falling asleep, although he has a TV set in the bedroom. He usually sleeps on the side position. According to his , he snores. He wakes up from sleep with a dry mouth, episodes of palpitations and possibly nocturia. He tosses and turns due to shoulder and back pain. In the morning the patient wakes up tired. He usually does not take any naps. Webb Sleepiness Scale is 2. PAST MEDICAL HISTORY: Positive for episodes of atrial fibrillation on and off for the last 2 years, coronary artery disease, hypertension, diabetes, hyperlipidemia. PAST SURGICAL HISTORY: Stent insertion to LAD, fatty tumor removed from the right inguinal area. MEDICATIONS: Lisinopril, hydrochlorothiazide, metformin, Eliquis, pravastatin, metoprolol. SOCIAL HISTORY: Positive for smoking about 1 pack a day for 47 years; quit around 2 years ago. Alcohol consumption around 2 beers every night. FAMILY HISTORY: Hypertension, heart problems, hyperlipidemia, stroke, fibromyalgia, arthritis, diabetes, kidney cancer. REVIEW OF SYSTEMS: Awakenings from sleep with a dry mouth. Episodes of palpitations. PHYSICAL EXAMINATION: GENERAL: A pleasant gentleman without distress. VITAL SIGNS: BP 144/74, HR 71, RR 14, height 5 feet 9 inches, weight 227.8 pounds, body mass index 33.5, temperature 98.3, oxygen saturation at room air 97%. HEENT: PERRLA, EOMI. Evaluation of oropharynx showed tongue protrudes midline. Extremely low position of soft palate. Mallampati IV. NECK: Supple. No JVD. Thyroid is not palpable. Neck measures 16-3/4 inches in circumference. LUNGS: Clear to percussion and to auscultation. Good air exchange. No wheezing or rhonchi. HEART: S1, S2 regular. No murmurs, gallops or rubs. ABDOMEN: Slightly obese. EXTREMITIES: No clubbing or cyanosis. METAL NEUTRALIZER: Awake, alert, and oriented X3. Cranial nerves 2 to 7 intact. There is no fasciculation or atrophy. noted. No focal deficits observed. IMPRESSION: 1. Snoring, awakenings from sleep, extremely low position of soft palate, Mallampati IV; possible obstructive sleep apnea-hypopnea syndrome. 2. Coronary artery disease, status post stent insertion to left anterior descending coronary artery about 2 years ago. 3. History of atrial fibrillation episodes for the last 2 years. 4. Obesity with body mass index 33.5. 5. Hypertension. 6. Diabetes mellitus. 7. Hyperlipidemia. 8. Status post fatty tumor removed from right inguinal area. 9. History of 47 pack/years of smoking; quit 2 years ago. PLAN: 1. Polysomnography for evaluation of patient's breathing during sleep. 2. CPAP/BiPAP titration if sleep study confirms obstructive sleep apnea-hypopnea syndrome. 3. Preferable position during sleep on the side. 4. No driving if patient feels any sleepiness. 5. I will see patient for follow up visit to explain results of testing and following plan. Thank you very much for referring this patient for consultation. Sincerely, Michael Esteban MD, PhD, FAASM Diplomat of [employer] [employer] [employer] [facility] [place] MMODL / IJN: [id number] /
== END | disposition home or self-care (01) ==
LOC: SLEEP 15:11
PROVIDERS: ATTEND Internal Medicine
DX: R06.83 Snoring (principal); E66.9 Obesity, unspecified; Z68.33 Body mass index [BMI] 33.0-33.9, adult; I10 Essential (primary) hypertension; E11.9 Type 2 diabetes mellitus without complications; E78.5 Hyperlipidemia, unspecified; Z87.891 Personal history of nicotine dependence; I25.10 Atherosclerotic heart disease of native coronary artery without angina pectoris; Z98.61 Coronary angioplasty status; Z98.890 Other specified postprocedural states; Z86.79 Personal history of other diseases of the circulatory system; Z79.84 Long term (current) use of oral hypoglycemic drugs; Z79.01 Long term (current) use of anticoagulants; Z79.899 Other long term (current) drug therapy
CPT/HCPCS: 99211

== ENCOUNTER 2019-12-30 08:18 | Inpatient (IN) | payer BC ==
[2019-12-30] MEDS ORDERED: ASPIRIN 81 MG PO STA (08:37)
[2019-12-30] MEDS ORDERED: NITROGLYCERIN SL TABS 0.4 MG TAB SUBLINGUAL STA (08:37)
[2019-12-30] MEDS ORDERED: METOPROLOL TARTRATE 5 MG/5 ML VIAL IVP STA ×3 (08:38→10:41)
--- NOTE | 2019-12-30 08:41 | ED ---
Chest Pain HPI - General Chief Complaint: Chest Pain Stated Complaint: chest pain Time Seen by Provider: 12/30/19 08:25 Source: patient, RN notes reviewed Mode of arrival: ambulatory Limitations: no limitations - History of Present Illness Initial Comments: This is a 59-year-old male with a history of chronic atrial fibrillation who states he is eating is here this morning he bent over to picker feeder an electric cord we started developing retrosternal chest pain and pressure 78/10 severity he states it radiated to his left arm. He did take some 2-year-old nitroglycerin which did bring the pain down to a 3-4/10. He did notice palpitations. He had not taken his medications yet this morning. He does state he had a history of a stent about 2 years ago. He has no other complaints or modifying factors at this time. MD Complaint: chest pain, other - Related Data Home Medications Medication Instructions Recorded Confirmed Lisinopril-Hctz 20-25 mg 1 tab PO DAILY 10/09/17 10/13/17 [Zestoretic 20-25] [place]-3 Fatty Acids [[place]-3] 500 mg PO DAILY 10/18/17 10/18/17 Ubidecarenone [Co Q-10] 200 mg PO DAILY 10/18/17 10/18/17 Previous Rx's Medication Instructions Recorded ALPRAZolam [Xanax] 0.25 mg PO Q6HR PRN tab 10/12/17 Aspirin 81 mg PO DAILY chew 10/12/17 Atorvastatin [Lipitor] 80 mg PO HS tab 10/12/17 Multivitamins, Thera [Multivitamin 1 each PO DAILY@1200 tab 10/12/17 (formulary)] Nicotine 21Mg/24Hr Patch [Habitrol] 1 patch TRANSDERM DAILY patch 10/12/17 Nitroglycerin Sl Tabs [Nitrostat] 0.4 mg SUBLINGUAL Q5M PRN tab 10/12/17 Thiamine [Vitamin B-1] 100 mg PO BID@1200,1700 tab 10/12/17 metFORMIN HCL [metFORMIN HCL ER] 750 mg PO DAILY #0 10/12/17 Carvedilol [Coreg] 6.25 mg PO BID-W/MEALS #90 tab 10/19/17 Ticagrelor [Brilinta] 90 mg PO BID #60 tab 10/19/17 Allergies Allergy/AdvReac Type Severity Reaction Status Date / Time Sulfa (Sulfonamide Allergy Rash/Hives Verified 12/30/19 08:26 Antibiotics) Review of Systems ROS Statement: Those systems with pertinent positive or pertinent negative responses have been documented in the HPI. ROS Other: All systems not noted in ROS Statement are negative. EKG Findings - EKG Results: EKG: interpreted by ANDRIYD (Tachycardia rate of 127 QRS 120 daily since QTC 3:30/491 left exodeviation left bundle-branch block pattern appears consistent with A. fib though the machine is reading a [place] interval 136) 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 Past Anesthesia/Blood Transfusion Reactions: No Reported Reaction Past Psychological History: No Psychological Hx Reported Smoking Status: Former smoker Past Alcohol Use History: None Reported Past Drug Use History: None Reported - Past Family History Father Family Medical History: Coronary Artery Disease (CAD), Hyperlipidemia, Hypertension Additional Family Medical History / Comment(s): CABG Mother Family Medical History: Coronary Artery Disease (CAD), CVA/TIA, Diabetes Mellitus, Hyperlipidemia, Hypertension, Myocardial Infarction ([place]) Additional Family Medical History / Comment(s): 7 stents Brother(s) Family Medical History: Diabetes Mellitus Additional Family Medical History / Comment(s): CABG Sister(s) Additional Family Medical History / Comment(s): CABG and valve General Exam - General Exam Comments Initial Comments: This is a well-developed well-nourished awake alert oriented 3 male Limitations: no limitations General appearance: alert, anxious Head exam: Present: atraumatic, normocephalic, normal inspection Eye exam: Present: normal appearance, PERRL, EOMI. Absent: scleral icterus, conjunctival injection, periorbital swelling ENT exam: Present: normal exam, mucous membranes moist Neck exam: Present: normal inspection. Absent: tenderness, meningismus, lymphadenopathy Respiratory exam: Present: normal lung sounds bilaterally. Absent: respiratory distress, wheezes, rales, rhonchi, stridor Cardiovascular Exam: Present: tachycardia, irregular rhythm, normal heart sounds. Absent: systolic murmur, diastolic murmur, rubs, gallop, clicks GI/Abdominal exam: Present: soft, normal bowel sounds. Absent: distended, tenderness, guarding, rebound, rigid Extremities exam: Present: normal inspection, full ROM, normal capillary refill. Absent: tenderness, pedal edema, joint swelling, calf tenderness Back exam: Present: normal inspection Neurological exam: Present: alert, oriented X3, CN II-XII intact Psychiatric exam: Present: normal affect, normal mood Skin exam: Present: warm, dry, intact, normal color. Absent: rash Course Vital Signs 12/30/19 08:22 Temperature 98.1 F Pulse Rate 129 H Respiratory 20 Rate Blood Pressure 150/94 O2 Sat by Pulse 100 Oximetry - Reevaluation(s) Reevaluation #1: 12/30/19 09:17 Patient states his pain is improved except he still has some discomfort in his left arm and heart rate however is gone up to the 160s on my repeat evaluation Chest Pain MDM - MDM Imaging was reviewed no acute findings. Patient continues to be in A. fib with RVR chest pain has gotten improved. I did discuss the findings with patient family as well as with Dr. Dobbs the patient will be admitted with cardiology consultation. Critical Care Time Critical Care Time: Yes Total Critical Care Time: 31 Critical Care Time: 31 minutes of critical care time which includes initial presentation with history physical labs x-rays multiple reevaluation the patient. Disposition Clinical Impression: Unstable angina pectoris, Acute coronary syndrome, Rapid atrial fibrillation Disposition: ADMITTED IP TO THIS HOSP Condition: Fair Referrals: Rubia Martinez DO [Primary Care Provider] - 1-2 days
[2019-12-30 09:02] LABS: Basophils % (A) 1 %; Eosinophils # (A) 0.3 k/uL (0-0.7); Eosinophils % (A) 5 %; HCT 44.6 % (39.0-53.0); Lymphocytes # (A) 2.2 k/uL (1.0-4.8); Lymphocytes % (A) 33 %; MCH 28.9 pg (25.0-35.0); MCHC 31.5 g/dL (31.0-37.0); MCV 91.8 fL (80.0-100.0); Mean Platelet Volume 8.7; Monocytes # (A) 0.3 k/uL (0-1.0); Monocytes % (A) 4 %; Neutrophils # (A) 3.6 k/uL (1.3-7.7); Neutrophils % (A) 55 %; Platelet Count 207 k/uL (150-450); RBC 4.86 m/uL (4.30-5.90); RDW 13.7 % (11.5-15.5); WBC 6.6 k/uL (3.8-10.6)
[2019-12-30 09:14] LABS: ALT 23 U/L (4-49); AST 25 U/L (17-59); African American GFR (CKD) >90 (>60 ml/min/1.73 sqM); Albumin 4.5 g/dL (3.5-5.0); Alkaline Phosphatase 61 U/L (38-126); Anion Gap 13 mmol/L; Blood Urea Nitrogen 12 mg/dL (9-20); Calcium 9.3 mg/dL (8.4-10.2); Carbon Dioxide 19 mmol/L (22-30); Chloride 101 mmol/L (98-107); Creatine Kinase 112 U/L (55-170); Glucose 228 mg/dL (74-99); Magnesium 1.6 mg/dL (1.6-2.3); Non-African American GFR(CKD) >90 (>60 ml/min/1.73 sqM); Potassium 4.3 mmol/L (3.5-5.1); Sodium 133 mmol/L (137-145); Total Bilirubin 0.5 mg/dL (0.2-1.3); Total Protein 6.9 g/dL (6.3-8.2)
--- NOTE | 2019-12-30 09:16 | XR ---
EXAMINATION TYPE: XR chest 2V DATE OF EXAM: 12/30/2019 HISTORY: Chest Pain. REFERENCE: Previous study dated 11/12/2017. FINDINGS: The lungs are clear. Pleural space are clear. The heart is not enlarged. IMPRESSION: NO ACTIVE INTRATHORACIC DISEASE.
[2019-12-30 09:18] LABS: Partial Thromboplastin Time 28.3 sec (22.0-30.0); Prothrombin Time 10.6 sec (9.0-12.0)
[2019-12-30] MEDS ORDERED: NITROGLYCERIN OINT 1 INCH/GM PACKET TOPICAL STA (09:48)
[2019-12-30] MEDS ORDERED: NITROGLYCERIN SL TABS 0.4 MG TAB SUBLINGUAL PRN (09:50)
[2019-12-30] MEDS ORDERED: ALPRAZolam 0.25 MG TAB PO PRN (09:52)
[2019-12-30 12:42] LABS: Glucose,Whole Blood 87 mg/dL (75-99)
[2019-12-30] MEDS: MULTIVITAMINS, THERA 1 EACH TAB PO SCH (14:45)
[2019-12-30] MEDS: INSULIN ASPART (NovoLOG) 100 UNIT/ML VIAL SQ SCH ×3 (14:45→21:20)
[2019-12-30] MEDS: NITROGLYCERIN OINT 1 INCH/GM PACKET TOPICAL SCH ×3 (14:45→23:22)
[2019-12-30] MEDS: THIAMINE 100 MG TAB PO SCH ×2 (14:45→17:25)
--- NOTE | 2019-12-30 15:55 | P.HPIM ---
History of Present Illness H&P Date: 12/30/19 Chief Complaint: Chest pain Patient is a 59-year-old male with a known history of coronary artery disease status post stent placement 2 years ago, paroxysmal atrial fibrillation on anticoagulation with Eliquis, hypertension, hyperlipidemia, diabetes type 2 and previous history of smoking Came to ER with complaints of chest pressure. Patient says that his symptoms started this morning when he bent over to pick apparent cord. Patient started developing retrosternal chest pain about 7/10 in severity and radiating to the left arm. Patient did take 2 nitroglycerin tablets which seem to improve his symptoms. Patient also felt dizzy and heart racing of fast. No complaints of worsening shortness of breath. No leg swelling. Patient presented to ER for evaluation. Patient says that he attended a constitution party and did drink a few beers last night. Patient did not take his medications prior to arrival to hospital.. Chest x-ray showed no acute cardio pulmonary process EKG showed sinus tachycardia. Patient was found have atrial fibrillation with rapid ventricular rate in the 120s when he was seen in the ER. Patient was given metoprolol IV 5 mg 2 within the ER. Currently patient is converted to sinus rhythm. Did improve symptomatically and was admitted to the hospital Laboratory showed troponin 0.012, 0.064, 0.083 Sodium 133 Blood sugar is 228 Review of Systems Constitutional: Patient denies any fever or chills . No generalized weakness or weight loss. Abdomen: Patient denied nausea vomiting and diarrhea and abdominal pain. Cardiovascular: Patient complains of chest pressure and shortness of breath and palpitations and dizziness. No leg swelling.. Respiratory: patient denied any cough is from production. No shortness of breath Neurologic: Patient denied any numbness or tingling headache. Musculoskeletal: Patient denies any complaints of joint swelling or deformity. Skin: Negative Psychiatric: Negative Endocrine: No heat or cold intolerance. No recent weight gain. Genitourinary: No dysuria or hematuria. All other 14 point ROS negative except the above 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 Past Anesthesia/Blood Transfusion Reactions: No Reported Reaction Past Psychological History: No Psychological Hx Reported Smoking Status: Former smoker Past Alcohol Use History: None Reported Past Drug Use History: None Reported - Past Family History Father Family Medical History: Coronary Artery Disease (CAD), Hyperlipidemia, Hypertension Additional Family Medical History / Comment(s): CABG Mother Family Medical History: Coronary Artery Disease (CAD), CVA/TIA, Diabetes Mellitus, Hyperlipidemia, Hypertension, Myocardial Infarction ([place]) Additional Family Medical History / Comment(s): 7 stents Brother(s) Family Medical History: Diabetes Mellitus Additional Family Medical History / Comment(s): CABG Sister(s) Additional Family Medical History / Comment(s): CABG and valve Medications and Allergies Home Medications Medication Instructions Recorded Confirmed Type Lisinopril-Hctz 20-25 mg 1 tab PO W/BRKFST 10/09/17 12/30/19 History [Zestoretic 20-25] Nitroglycerin Sl Tabs [Nitrostat] 0.4 mg SUBLINGUAL Q5M PRN tab 10/12/17 12/30/19 Rx Apixaban [Eliquis] 5 mg PO BID 12/30/19 12/30/19 History Aspirin 81 mg PO HS 12/30/19 12/30/19 History Cholecalciferol [Vitamin D3 (25 1,000 unit PO DAILY 12/30/19 12/30/19 History Mcg = 1000 Iu)] Metoprolol Succinate (ER) [Toprol 50 mg PO HS 12/30/19 12/30/19 History Xl] Pravastatin Sodium [Pravachol] 40 mg PO HS 12/30/19 12/30/19 History Ubidecarenone [Co Q-10] 100 mg PO DAILY 12/30/19 12/30/19 History metFORMIN HCL [metFORMIN HCL ER] 750 mg PO BID 12/30/19 12/30/19 History Allergies Allergy/AdvReac Type Severity Reaction Status Date / Time Sulfa (Sulfonamide Allergy Rash/Hives, Verified 12/30/19 09:52 Antibiotics) Blood in urine Physical Exam Vitals: Vital Signs Temp Pulse Resp BP Pulse Ox 12/30/19 11:32 99.1 F 142 H 19 97/80 98 12/30/19 10:57 115 H 16 98/79 98 12/30/19 10:11 99.2 F 142 H 19 103/70 99 12/30/19 08:22 98.1 F 129 H 20 150/94 100 Intake and Output 12/29/19 12/30/19 12/30/19 22:59 06:59 14:59 Other: Weight 99.79 kg PHYSICAL EXAMINATION: Patient is lying in the bed comfortably, no acute distress, awake alert and oriented.. HEENT: Normocephalic. Neck is supple. Pupils reactive. Nostrils clear. Oral cavity is moist. Ears reveal no drainage. Neck reveals no JVD, carotid bruits, or thyromegaly. CHEST EXAMINATION: Trachea is central. Symmetrical expansion. Lung daley clear to auscultation and percussion. CARDIAC: Normal S1, S2 with no gallops. No murmurs ABDOMEN: Soft. Bowel sounds normal. No organomegaly. No abdominal bruits. Extremities: reveal no edema. No clubbing or cyanosis Neurologically awake, alert, oriented x3 with well-coordinated movements. No focal deficits noted Skin: No rash or skin lesions. Psychiatric: Coperative. Nonsuicidal Musculoskeletal: No joint swelling or deformity. Normal range of motion. Results CBC & Chem 7: 12/30/19 08:48 12/30/19 08:48 Labs: Abnormal Lab Results - Last 24 Hours (Table) 12/30/19 Range/Units 08:48 Sodium 133 L (137-145) mmol/L Carbon Dioxide 19 L (22-30) mmol/L Glucose 228 H (74-99) mg/dL Thrombosis Risk Factor Assmnt - DVT/VTE Prophylaxis DVT/VTE Prophylaxis: Pharmacologic Prophylaxis ordered Assessment and Plan Assessment: Acute non-ST elevated NC with elevated troponin levels. Atrial fibrillation with rapid ventricular rate Coronary artery disease with history of stent placement 2 years ago Paroxysmal atrial fibrillation on anticoagulation with Eliquis at home Hypertension Hyperlipidemia Previous history of smoking Alcohol use night before Obesity with BMI 31.6 DVT prophylaxis patient is HEPARIN drip recent admission due to sudden onset of double vision-stroke ruled out per spouse plan: Patient be continued on telemetry monitoring. Was given a dose of IV metoprolol in the ER. Currently converted to sinus rhythm. Patient will be started on heparin drip due to troponin trending up. Repeat EKG was ordered. Cardiology was consulted and further recommendations based on clinical course. Continue with aspirin, statins and metoprolol. Time with Patient: Greater than 30
[2019-12-30] MEDS ORDERED: HEPARIN SODIUM,PORCINE 5,000 UNIT/ML 1 ML VIAL IV ONE (17:10)
[2019-12-30] MEDS ORDERED: HEPARIN SODIUM,PORCINE 5,000 UNIT/ML 1 ML VIAL IV PRN (17:10)
[2019-12-30 17:22] LABS: Glucose,Whole Blood 104 mg/dL (75-99)
[2019-12-30] MEDS: HEPARIN SOD,PORK IN 0.45% NACL 25,000 UNIT in 0.45% NACL 1 250ML.BAG IV SCH (17:25)
[2019-12-30] MEDS ORDERED: carvediloL 6.25 MG TAB PO SCH (17:30)
[2019-12-30 20:14] LABS: Glucose,Whole Blood 167 mg/dL (75-99)
[2019-12-30] MEDS ORDERED: METOPROLOL SUCCINATE (ER) 50 MG TAB.ER.24H PO SCH ×2 (21:00)
[2019-12-30] MEDS ORDERED: APIXABAN 5 MG TAB PO SCH (21:00)
[2019-12-30] MEDS ORDERED: METFORMIN HCL 750 MG PO SCH (21:00)
[2019-12-30] MEDS ORDERED: TICAGRELOR 90 MG TAB PO SCH (21:00)
[2019-12-30] MEDS: ASPIRIN 81 MG PO SCH (21:20)
[2019-12-30] MEDS: METOPROLOL SUCCINATE (ER) 50 MG TAB.ER.24H PO SCH (21:20)
[2019-12-30] MEDS: ATORVASTATIN 80 MG TAB PO SCH (21:20)
[2019-12-31] MEDS ORDERED: ACETAMINOPHEN TAB 325 MG TAB PO PRN (04:32)
[2019-12-31 06:21] LABS: Basophils % (A) 0 %; Eosinophils # (A) 0.3 k/uL (0-0.7); Eosinophils % (A) 5 %; HCT 40.4 % (39.0-53.0); HGB 13.1 gm/dL (13.0-17.5); Lymphocytes # (A) 1.6 k/uL (1.0-4.8); Lymphocytes % (A) 28 %; MCH 29.6 pg (25.0-35.0); MCHC 32.4 g/dL (31.0-37.0); MCV 91.4 fL (80.0-100.0); Mean Platelet Volume 8.8; Monocytes # (A) 0.4 k/uL (0-1.0); Monocytes % (A) 7 %; Neutrophils # (A) 3.2 k/uL (1.3-7.7); Neutrophils % (A) 57 %; Platelet Count 162 k/uL (150-450); RBC 4.41 m/uL (4.30-5.90); RDW 13.9 % (11.5-15.5); WBC 5.5 k/uL (3.8-10.6)
[2019-12-31] MEDS: NITROGLYCERIN OINT 1 INCH/GM PACKET TOPICAL SCH ×3 (06:23→19:08)
[2019-12-31] MEDS: INSULIN ASPART (NovoLOG) 100 UNIT/ML VIAL SQ SCH ×4 (06:24→22:45)
[2019-12-31 06:25] LABS: Glucose,Whole Blood 128 mg/dL (75-99)
[2019-12-31 06:40] LABS: Cholesterol 129 mg/dL (<200); HDL Cholesterol 50 mg/dL (40-60); LDL Cholesterol,Calculated 61 mg/dL (0-99); Triglycerides 92 mg/dL (<150)
[2019-12-31] MEDS: CHOLECALCIFEROL 1,000 UNIT TAB PO SCH (08:47)
[2019-12-31] MEDS: LISINOPRIL-HCTZ 20-25 MG 1 EACH TAB PO SCH (08:48)
[2019-12-31] MEDS ORDERED: ASPIRIN 325 MG TAB PO STA (08:50)
[2019-12-31] MEDS ORDERED: NITROGLYCERIN SL TABS 0.4 MG TAB SUBLINGUAL PRN (08:50)
[2019-12-31] MEDS ORDERED: SODIUM CHLORIDE 0.9% 1,000 ML in EMPTY BAG 1 BAG IV ONE (08:50)
[2019-12-31] MEDS ORDERED: ALPRAZolam 0.5 MG TAB PO PRN (08:50)
[2019-12-31] MEDS ORDERED: ALPRAZolam 0.25 MG TAB PO PRN (08:50)
[2019-12-31] MEDS ORDERED: OMEGA PO SCH (09:00)
[2019-12-31] MEDS ORDERED: FATTY ACIDS PO SCH (09:00)
[2019-12-31] MEDS ORDERED: ASPIRIN 81 MG PO SCH (09:00)
[2019-12-31] MEDS ORDERED: NON FORMULARY DRUG (Ubidecarenone [Co Q-10] 200 MG) PO SCH (09:00)
[2019-12-31] MEDS ORDERED: ASPIRIN 325 MG TAB PO SCH (09:00)
[2019-12-31] MEDS ORDERED: NON FORMULARY DRUG (Ubidecarenone [Co Q-10] 100 MG) PO SCH (09:00)
[2019-12-31] MEDS ORDERED: metFORMIN 500 MG TAB PO SCH (09:00)
[2019-12-31] MEDS: ATORVASTATIN 80 MG TAB PO STA ×2 (09:25→09:30)
[2019-12-31] MEDS: NICOTINE 21MG/24HR PATCH TRANSDERM SCH (09:30)
[2019-12-31] MEDS ORDERED: IV FLUID CONTINUATION 700 ML IV ONE (10:07)
[2019-12-31] MEDS ORDERED: MIDAZOLAM 2 MG/2 ML VIAL IVP ONE (10:21)
[2019-12-31] MEDS ORDERED: LIDOCAINE 1% INJ 10MG/ML (20 ML MDV) SQ ONE (10:21)
[2019-12-31] MEDS ORDERED: fentaNYL (PF) 50 MCG/ML 2 ML AMP IVP ONE (10:21)
[2019-12-31] MEDS ORDERED: VERAPAMIL SYRINGE (5 MG/10 ML) INTRAARTER ONE (10:28)
[2019-12-31] MEDS ORDERED: HEPARIN SODIUM 1,000 UN/ML (10ML VL) IV ONE (10:37)
[2019-12-31] MEDS ORDERED: IOPAMIDOL-370 100ML BTL INJ ONE (10:38)
--- NOTE | 2019-12-31 10:57 | P.CARDCATH ---
Date of Procedure: 12/31/19 Preoperative Diagnosis: Non-STEMI Postoperative Diagnosis: Mild in-stent stenosis involving proximal LAD and diffuse disease involving the rest of the system Procedure(s) Performed: Left heart catheterization without left ventriculography Description of Procedure: HISTORY: This is a 59-year-old gentleman with history of hypertension, diabetes, previous stent placement of the left anterior descending coronary artery who was admitted to the hospital with complaints of chest pain relieved with nitroglycerin and also abnormal troponin values. Patient is advised to have a cardiac catheterization CONSENT:I have discussed the risks, benefits and alternative therapies for the above-mentioned procedure and for both sedation/analgesia as well as necessary blood product administration, if indicated, as they pertain to this patient. The patient has indicated understanding and acceptance of the risks and procedures discussed. PROCEDURE: Patient was brought to the lab in a fasting state. Patient was given some IV sedation. The right wrist is infiltrated with lidocaine and right radial artery was entered using Seldinger technique. A 6-Kazakh catheter was left in place and selective coronary arteriography was performed. Patient tolerated the procedure well. TR band was applied was applied for hemostasis. No immediate complications were noted and patient was transferred to [facility] in a stable condition Conscious Sedation: Versed 1mg Fentanyl 50 g, patient also received 4000 units of heparin Duration 20minutes HEMODYNAMICS:. The aortic pressure is about 130/70. Left ventricular end- diastolic pressure is about 8-12. No gradient across the aortic valve SELECTIVE CORONARY ARTERIOGRAPHY: LEFT MAIN: Normal length and free of any occlusive disease THE LEFT ANTERIOR DESCENDING CORONARY ARTERY:. This is a moderate caliber vessel with a stent in the proximal portion. There appears to be mild diffuse in-stent stenosis but I did not see any definite significant stenosis in the LAD. The diagonal branch has diffuse disease with 70-80% stenosis which are small in caliber THE LEFT CIRCUMFLEX AND IS CORONARY ARTERY:. This is a moderate caliber vessel giving rise good-sized OM branch. Mild diffuse plaque is noted THE RIGHT CORONARY ARTERY:. This is a moderate caliber vessel with heavy calcification and diffuse plaque without any significant focal lesions LEFT VENTRICULOGRAPHY: Not performed FINAL IMPRESSION:. Mild in-stent stenosis in the proximal LAD. Moderate to severe disease in the small diagonal branch. calcified diffuse plaque of the right coronary artery PLAN: Maximum medical therapy. We will review the films with Dr. ALVARO English who did the previous stent placement PROGNOSIS: Guarded
--- NOTE | 2019-12-31 11:11 | P.CRDCN ---
History of Present Illness Consult date: 12/31/19 Requesting physician: Anant Dobbs Consult reason: chest pain Chief complaint: Chest pain History of present illness: This is a 59-year-old gentleman with documented history of hyper tension, hyperlipidemia, diabetes, nicotine dependence for which the patient quit smoking a couple of years ago, daily EtOH, patient states he usually drinks about 3 beers a day, however the day prior to this episode occurring he did have several more beer, he was at a alliance party on that day. He also has a strong family history of premature coronary artery disease, history of stenting of the LAD and paroxysmal atrial fibrillation. He presents to the hospital on this occasion with symptoms of chest discomfort. According to the patient, he was in his garage, his was cutting his hair, he states it was very hot in there. He leaned over to pickup an extension cord and shortly thereafter developed midsternal chest pressure and felt as though his heart was racing very fast. He also had some radiation of the discomfort down his left arm. For this reason he came to the hospital for further evaluation and treatment. EKG on arrival here showed an atrial tachycardia with rapid ventricular response, left bundle-branch block pattern. On review of the monitor, patient is having episodes of paroxysmal atrial tachycardia with rapid response. Chest x-ray does not show any acute disease. Blood pressure 126/60 with a heart rate in the 50s this morning, temperature 98.0, 95% on room air. White blood cell count 5.5, hemoglobin 13.1, platelet count 162. Sodium 133, potassium 4.3, BUN 12, creatinine 0.6. Magnesium 1.6. Troponins 0.012, 0.064, 0.086. Patient is on Eliquis for paroxysmal atrial fibrillation which was placed on hold and the patient here was initiated on heparin. The patient was seen in consultation this morning and explained that his abnormality in troponin could be secondary to his episodes of atrial tachycardia with rapid ventricular response, but because of his underlying history of coronary artery disease the patient has been recommended to undergo cardiac catheterization. The risks and the benefits of the procedure were explained to the patient in detail. This will be performed today by Dr. Wagner. 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 Past Anesthesia/Blood Transfusion Reactions: No Reported Reaction Date of Last Stent Placement:: 11/08/2017 Past Psychological History: No Psychological Hx Reported Smoking Status: Former smoker Past Alcohol Use History: None Reported Past Drug Use History: None Reported - Past Family History Father Family Medical History: Coronary Artery Disease (CAD), Hyperlipidemia, Hypertens ion Additional Family Medical History / Comment(s): CABG Mother Family Medical History: Coronary Artery Disease (CAD), CVA/TIA, Diabetes Mellitu s, Hyperlipidemia, Hypertension, Myocardial Infarction (ND) Additional Family Medical History / Comment(s): 7 stents Brother(s) Family Medical History: Diabetes Mellitus Additional Family Medical History / Comment(s): CABG Sister(s) Additional Family Medical History / Comment(s): CABG and valve Medications and Allergies Home Medications Medication Instructions Recorded Confirmed Type Lisinopril-Hctz 20-25 mg 1 tab PO W/BRKFST 10/09/17 12/30/19 History [Zestoretic 20-25] Nitroglycerin Sl Tabs [Nitrostat] 0.4 mg SUBLINGUAL Q5M PRN tab 10/12/17 12/30/19 Rx Apixaban [Eliquis] 5 mg PO BID 12/30/19 12/30/19 History Aspirin 81 mg PO HS 12/30/19 12/30/19 History Cholecalciferol [Vitamin D3 (25 1,000 unit PO DAILY 12/30/19 12/30/19 History Mcg = 1000 Iu)] Metoprolol Succinate (ER) [Toprol 50 mg PO HS 12/30/19 12/30/19 History Xl] Pravastatin Sodium [Pravachol] 40 mg PO HS 12/30/19 12/30/19 History Ubidecarenone [Co Q-10] 100 mg PO DAILY 12/30/19 12/30/19 History metFORMIN HCL [metFORMIN HCL ER] 750 mg PO BID 12/30/19 12/30/19 History Allergies Allergy/AdvReac Type Severity Reaction Status Date / Time Sulfa (Sulfonamide Allergy Rash/Hives, Verified 12/30/19 09:52 Antibiotics) Blood in urine Physical Exam Vitals: Vital Signs Temp Pulse Pulse Pulse Resp BP BP 12/31/19 11:00 51 L 17 134/64 12/31/19 08:00 98.5 F 63 17 12/31/19 04:00 98 F 54 L 18 12/31/19 00:00 97.9 F 58 L 16 12/30/19 20:00 97.9 F 58 L 16 12/30/19 16:10 97.7 F 63 18 12/30/19 12:20 63 18 12/30/19 12:15 98.7 F 63 18 12/30/19 11:32 99.1 F 142 H 19 97/80 BP Pulse Ox 12/31/19 11:00 97 12/31/19 08:00 133/63 98 12/31/19 04:00 126/62 95 12/31/19 00:00 115/59 96 12/30/19 20:00 142/71 98 12/30/19 16:10 166/75 98 12/30/19 12:20 12/30/19 12:15 128/71 98 12/30/19 11:32 98 Intake and Output 12/30/19 12/31/19 12/31/19 22:59 06:59 14:59 Intake Total 240 69.826 208.755 Balance 240 69.826 208.755 Intake: IV 100 Intake, IV Titration 69.826 108.755 Amount Heparin Sod,Pork in 0.45% 69.826 108.755 NaCl 25,000 unit In 0.45 % NaCl 1 250ml.bag @ 10. 02 UNITS/KG/HR 9.999 mls/ hr IV .Q24H [facility] Rx#: [id number] Oral 240 Other: Voiding Method Toilet Toilet Toilet # Voids 3 1 Weight 96.8 kg PHYSICAL EXAMINATION: GENERAL: 59-year-old gentleman in no acute distress at the time of my examination HEENT: Head is atraumatic, normocephalic. Pupils equal, round. Sclera anicteric. Conjunctiva are clear. Mucous membranes of the mouth are moist. Neck is supple. There is no elevated jugular venous pressure. No carotid bruit is heard. HEART EXAMINATION: Heart S1, S2 normal. No murmur or gallop heard. CHEST EXAMINATION: Lungs are clear to auscultation and precussion. No chest wall tenderness is noted on palpation or with deep breathing. ABDOMEN: Soft, nontender. Bowel sounds are heard. No organomegaly noted. EXTREMITIES: 2+ peripheral pulses with no evidence of peripheral edema and no calf tenderness noted. NEUROLOGIC patient is awake, alert and oriented 3 . . Results 12/31/19 06:09 12/30/19 08:48 Cardiac Enzymes 12/30/19 12/30/19 Range/Units 11:28 14:19 Troponin I 0.064 H* 0.086 H* (0.000-0.034) ng/mL Coagulation 12/30/19 12/31/19 Range/Units 23:26 06:09 APTT 39.0 H 43.6 H (22.0-30.0) sec Lipids 12/31/19 Range/Units 06:09 Triglycerides 92 (<150) mg/dL Cholesterol 129 (<200) mg/dL HDL Cholesterol 50 (40-60) mg/dL CBC 12/31/19 Range/Units 06:09 WBC 5.5 (3.8-10.6) k/uL RBC 4.41 (4.30-5.90) m/uL Hgb 13.1 (13.0-17.5) gm/dL Hct 40.4 (39.0-53.0) % Plt Count 162 (150-450) k/uL Current Medications Generic Name Dose Route Start Last Admin Trade Name Freq PRN Reason Stop Dose Admin Acetaminophen 650 mg 12/31/19 04:32 12/31/19 04:38 Tylenol Tab PO 650 mg Q4HR PRN Administration Fever and/ or Pain Alprazolam 0.25 mg 12/31/19 08:50 Xanax PO Q6HR PRN Mild Anxiety Alprazolam 0.5 mg 12/31/19 08:50 Xanax PO Q6HR PRN Moderate Anxiety Aspirin 81 mg 12/30/19 21:00 12/30/19 21:20 Aspirin PO 81 mg HS LAUREANO Administration Atorvastatin Calcium 80 mg 12/30/19 21:00 12/30/19 21:20 Lipitor PO Not Given HS LAUREANO Cholecalciferol 1,000 unit 12/31/19 09:00 12/31/19 08:47 Vitamin D3 (25 Mcg = 1000 Iu) PO 1,000 unit DAILY LAUREANO Administration Lisinopril/HCTZ 1 each 12/31/19 09:00 12/31/19 08:48 Zestoretic 20-25 PO 1 each DAILY LAUREANO Administration Heparin Sodium (Porcine) 0 unit 12/30/19 17:10 Heparin IV PER PROTOCOL PRN Low PTT Protocol Heparin Sodium/Sodium Chloride 250 mls @ 9.999 mls/hr 12/30/19 17:15 12/31/19 09:28 25,000 unit/ Sodium Chloride IV 0 units/kg/hr .Q24H LAUREANO 0 mls/hr Titration Protocol 10.02 UNITS/KG/HR Sodium Chloride 1,000 ml/ IV 1,000 mls @ 96.8 mls/hr 12/31/19 08:50 Solution IV 12/31/19 19:09 .[id number] ONE 1 ML/KG/HR Insulin Aspart 0 unit 12/30/19 12:30 12/31/19 06:24 Novolog SQ Not Given ACHS [facility] Protocol Metoprolol Succinate 50 mg 12/30/19 21:00 12/30/19 21:20 Toprol Xl PO 50 mg HS LAUREANO Administration Multivitamins 1 each 12/30/19 12:00 12/30/19 14:45 Theragran PO Not Given DAILY@1200 [facility] Nicotine 1 patch 12/31/19 09:00 12/31/19 09:30 Habitrol 21mg/24hr Patch TRANSDERM Not Given DAILY [facility] Nitroglycerin 1 inch 12/30/19 12:00 12/31/19 06:23 Nitro-Bid Oint TOPICAL Not Given Q6HR [facility] Nitroglycerin 0.4 mg 12/31/19 08:50 Nitrostat SUBLINGUAL Q5M PRN Chest Pain Thiamine HCl 100 mg 12/30/19 12:00 12/30/19 17:25 Vitamin B-1 PO 100 mg BID@1200,1700 [facility] Administration Intake and Output 12/30/19 12/31/19 12/31/19 22:59 06:59 14:59 Intake Total 240 69.826 208.755 Balance 240 69.826 208.755 Intake: IV 100 Intake, IV Titration 69.826 108.755 Amount Heparin Sod,Pork in 0.45% 69.826 108.755 NaCl 25,000 unit In 0.45 % NaCl 1 250ml.bag @ 10. 02 UNITS/KG/HR 9.999 mls/ hr IV .Q24H [facility] Rx#: [id number] Oral 240 Other: Voiding Method Toilet Toilet Toilet # Voids 3 1 Weight 96.8 kg 12/31/19 06:09 12/30/19 08:48 EKG Interpretations (text) Initial EKG showed atrial tachycardia with rapid ventricular response Assessment and Plan Plan: Assessment and plan #1 chest pressure with associated palpitations, troponins 0.012, 0.064, 0.086, possible acute coronary syndrome. #2 atrial tachycardia with rapid ventricular response, paroxysmal, frequent episodes, could also be the underlying problem contributing to the abnormality in troponin. #3 paroxysmal atrial fibrillation for which the patient takes Eliquis #4 coronary artery disease with prior LAD stenting #5 hypertension #6 diabetes #7 hyperlipidemia #8 prior nicotine dependence #9 EtOH use, at least 3 beers a day, recent prior to this episode patient had drank several alcoholic beverages. #10 hypomagnesemia Plan We will obtain an echocardiogram with Doppler study. Because of the abnormality in the troponin and the patient's history of coronary artery disease he has been advised to undergo cardiac catheterization today, the risks and benefits were explained to the patient in detail. It was also explained to the patient that the abnormality in troponin could be secondary to his atrial tachycardia with rapid ventricular response. Further recommendations will be based on the findings of these procedures and the patient's overall clinical course. DNP note has been reviewed, I agree with a documented findings and plan of care. Patient was seen and examined.
--- NOTE | 2019-12-31 11:51 | ECHOF ---
Referral Reason:chest pain MEASUREMENTS -------- HEIGHT: 177.8 cm WEIGHT: 96.6 kg BP: 126/62 RVIDd: 4.5 cm (< 3.3) IVSd: 1.4 cm (0.6 - 1.1) LVIDd: 5.1 cm (3.9 - 5.3) LVPWd: 1.3 cm (0.6 - 1.1) IVSs: 1.6 cm LVIDs: 3.3 cm LVPWs: 1.9 cm LAESV Index (A-L): 23.72 ml/m Ao Diam: 2.9 cm (2.0 - 3.7) AV Cusp: 2.0 cm (1.5 - 2.6) MV EXCURSION: 20.180 mm (> 18.000) MV EF SLOPE: 111 mm/s (70 - 150) EPSS: 0.7 cm MV E Adan: 0.76 m/s MV DecT: 201 ms MV A Adan: 0.83 m/s MV E/A Ratio: 0.92 RAP: 5.00 mmHg RVSP: 20.70 mmHg FINDINGS -------- Sinus rhythm. This was a technically adequate study. The left ventricular size is normal. There is moderate concentric left ventricular hypertrophy. O verall left ventricular systolic function is normal with, an EF between 55 - 60 %. The diastolic fi lling pattern is normal for the age of the patient 10.27. Septal wall motion is delayed, and consis tent with conduction delay/bundle branch block. The right ventricle is moderately enlarged. Normal LA size by volume 22+/-6 ml/m2. The right atrium is mildly enlarged. 5.0mg of Lumason was utilized for enhancement of images Interatrial and interventricular septum intact. The aortic valve is trileaflet and appears structurally normal. There is no evidence of aortic regu rgitation. There is no evidence of aortic stenosis. No mitral regurgitation. Mild tricuspid regurgitation present. There is no evidence of pulmonary hypertension. The right v entricular systolic pressure, as measured by Doppler, is 20.70mmHg. There is no pulmonic regurgitation present. The aortic root size is normal. IVC Not well visulized. There is no pericardial effusion. CONCLUSIONS -------- 1. The left ventricular size is normal. 2. There is moderate concentric left ventricular hypertrophy. 3. Overall left ventricular systolic function is normal with, an EF between 55 - 60 %. 4. The diastolic filling pattern is normal for the age of the patient 10.27 5. Septal wall motion is delayed, and consistent with conduction delay/bundle branch block. 6. The right ventricle is moderately enlarged. 7. The right atrium is mildly enlarged. 8. Mild tricuspid regurgitation present. GUT PULLER: Cecily Tobias RDCS
[2019-12-31 11:54] LABS: Glucose,Whole Blood 122 mg/dL (75-99)
[2019-12-31] MEDS: THIAMINE 100 MG TAB PO SCH ×2 (12:43→18:34)
[2019-12-31] MEDS: MULTIVITAMINS, THERA 1 EACH TAB PO SCH (12:43)
[2019-12-31] MEDS: MAGNESIUM SULFATE-D5W PMX 1 GM in DEXTROSE/WATER 1 100ML.BAG IVPB SCH ×2 (12:43→18:34)
--- NOTE | 2019-12-31 16:11 | P.PN ---
Subjective Progress Note Date: 12/31/19 This is a 59-year-old gentleman admitted with acute non-STEMI, atrial fibrillation with RVR and multiple other medical issues. Evaluated by cardiology, scheduled for cardiac catheterization today. Converted to sinus rhythm on beta talya. Denies chest pain, palpitations or shortness of breath. Objective - Vital Signs Vital signs: Vital Signs Temp 98.5 F 12/31/19 08:00 Pulse 52 L 12/31/19 12:00 Resp 19 12/31/19 12:00 BP 122/64 12/31/19 12:00 Pulse Ox 99 12/31/19 12:00 Intake & Output 12/30/19 12/31/19 12/31/19 18:59 06:59 18:59 Intake Total 360 69.826 208.755 Balance 360 69.826 208.755 Weight 99.79 kg 96.8 kg Intake: IV 100 Intake, IV Titration 69.826 108.755 Amount Heparin Sod,Pork in 0.45% 69.826 108.755 NaCl 25,000 unit In 0.45 % NaCl 1 250ml.bag @ 10. 02 UNITS/KG/HR 9.999 mls/ hr IV .Q24H [facility] Rx#: [id number] Oral 360 Other: Voiding Method Toilet Toilet Toilet # Voids 3 1 1 - Exam PHYSICAL EXAM: VITAL SIGNS: [As above] GENERAL: Sitting up in bed, no acute distress HEENT: Conjunctivae normal. eyes normal. NECK: No JVD. No thyroid enlargement. No LNs CARDIOVASCULAR: S1, S2 regular.. No murmur RESPIRATION: Breath sounds diminished in the bases. No rhonchi or crackles. No bronchial breathing. ABDOMEN: Soft, nontender . No guarding. no masses palpable. No ascites, No hepatosplenomegaly.Bowel sounds heard. LEGS: No edema. no swelling PSYCHIATRY: Alert and oriented X3, mood and affect normal. NERVOUS SYSTEM: Cranial N 2-12 grossly normal. Moves all 4 limbs. No focal deficits. Strength and sensation grossly intact.. Skin: no rash Lymphatic system. No LN neck axilla - Labs CBC & Chem 7: 12/31/19 06:09 12/30/19 08:48 Labs: Abnormal Lab Results - Last 24 Hours (Table) 12/30/19 12/30/19 12/30/19 Range/Units 17:16 20:11 23:26 APTT 39.0 H (22.0-30.0) sec POC Glucose (mg/dL) 104 H 167 H (75-99) mg/dL 12/31/19 12/31/19 12/31/19 Range/Units 06:09 06:23 11:53 APTT 43.6 H (22.0-30.0) sec POC Glucose (mg/dL) 128 H 122 H (75-99) mg/dL Assessment and Plan Assessment: Acute non-ST elevated DE with elevated troponin levels. Atrial fibrillation with rapid ventricular rate, converted to sinus rhythm with beta talya Atrial tachycardia Coronary artery disease with history of stent placement 2 years ago Paroxysmal atrial fibrillation on anticoagulation with Eliquis at home Hypertension Hyperlipidemia Previous history of smoking Alcohol use night before Obesity with BMI 31.6 DVT prophylaxis patient is HEPARIN drip recent admission due to sudden onset of double vision-stroke ruled out per spouse Plan: Continue on current medication regime , beta talya, monitoring and symptomatic treatment. NPO, scheduled for cardiac catheterization/echo. Follow closely with cardiology. The impression and plan of care has been dictated as directed. : I performed a history and examination of this patient, discussed the same with the dictator. I agree with the dictator's note ,documented as a scribe. Any additional findings or plans will be noted.
[2019-12-31 17:15] LABS: Glucose,Whole Blood 108 mg/dL (75-99)
[2019-12-31] MEDS: HEPARIN SOD,PORK IN 0.45% NACL 25,000 UNIT in 0.45% NACL 1 250ML.BAG IV SCH (19:09)
[2019-12-31 21:00] LABS: Glucose,Whole Blood 120 mg/dL (75-99)
[2019-12-31] MEDS: ASPIRIN 81 MG PO SCH (22:43)
[2019-12-31] MEDS: METOPROLOL SUCCINATE (ER) 50 MG TAB.ER.24H PO SCH (22:44)
[2019-12-31] MEDS: ATORVASTATIN 80 MG TAB PO SCH (22:44)
[2020-01-01] MEDS: NITROGLYCERIN OINT 1 INCH/GM PACKET TOPICAL SCH ×2 (06:25→08:43)
[2020-01-01 06:39] LABS: African American GFR (CKD) >90 (>60 ml/min/1.73 sqM); Anion Gap 9 mmol/L; Blood Urea Nitrogen 11 mg/dL (9-20); Calcium 9.5 mg/dL (8.4-10.2); Carbon Dioxide 26 mmol/L (22-30); Chloride 102 mmol/L (98-107); Glucose 144 mg/dL (74-99); Non-African American GFR(CKD) >90 (>60 ml/min/1.73 sqM); Potassium 4.3 mmol/L (3.5-5.1); Sodium 137 mmol/L (137-145)
[2020-01-01 06:42] LABS: Glucose,Whole Blood 127 mg/dL (75-99)
[2020-01-01] MEDS: INSULIN ASPART (NovoLOG) 100 UNIT/ML VIAL SQ SCH ×2 (08:42→11:52)
[2020-01-01] MEDS: NICOTINE 21MG/24HR PATCH TRANSDERM SCH (09:06)
[2020-01-01] MEDS: CHOLECALCIFEROL 1,000 UNIT TAB PO SCH (09:07)
[2020-01-01] MEDS: LISINOPRIL-HCTZ 20-25 MG 1 EACH TAB PO SCH (09:08)
[2020-01-01 10:42] VITALS: BP 129/64; PULSE 61; RESP 19; TEMP 96.6
--- NOTE | 2020-01-01 11:20 | P.PN ---
Subjective Progress Note Date: 01/01/20 This is a 59-year-old gentleman with documented history of hypertension, hyperlipidemia, diabetes, nicotine dependence for which the patient quit smoking a couple of years ago, daily EtOH, patient states he usually drinks about 3 beers a day, however the day prior to this episode occurring he did have several more beer, he was at a green party on that day. He also has a strong family history of premature coronary artery disease, history of stenting of the LAD and paroxysmal atrial fibrillation. He presents to the hospital on this occasion with symptoms of chest discomfort. According to the patient, he was in his garage, his was cutting his hair, he states it was very hot in there. He leaned over to pickup an extension cord and shortly thereafter developed midsternal chest pressure and felt as though his heart was racing very fast. He also had some radiation of the discomfort down his left arm. For this reason he came to the hospital for further evaluation and treatment. EKG on arrival here showed an atrial tachycardia with rapid ventricular response, left bundle-branch block pattern. On review of the monitor, patient is having episodes of paroxysmal atrial tachycardia with rapid response. Chest x-ray does not show any acute disease. Blood pressure 126/60 with a heart rate in the 50s this morning, temperature 98.0, 95% on room air. White blood cell count 5.5, hemoglobin 13.1, platelet count 162. Sodium 133, potassium 4.3, BUN 12, creatinine 0.6. Magnesium 1.6. Troponins 0.012, 0.064, 0.086. Patient is on Eliquis for paroxysmal atrial fibrillation which was placed on hold and the patient here was initiated on heparin. The patient was seen in consultation this morning and explained that his abnormality in troponin could be secondary to his episodes of atrial tachycardia with rapid ventricular response, but because of his underlying history of coronary artery disease the patient has been recommended to undergo cardiac catheterization. The risks and the benefits of the procedure were explained to the patient in detail. This will be performed today by Dr. Wagner. 01/01/2020 Patient underwent a cardiac catheterization yesterday which revealed mild in- stent stenosis involving the proximal LAD and diffuse disease involving the rest of the system, medical therapy was advised. Patient did not have any further episodes of atrial tachycardia noted through the night last night. He was seen and examined this morning, feels well, denies any chest pain, no palpitations. We will change his dose of beta talya to an a.m. dose, discontinue his Nitropaste. From our perspective he may be able to be discharged home today and will be scheduled as an outpatient for EP studies. Follow-up appointment with Dr. Islas in one week. Objective - Vital Signs Vital signs: Vital Signs Temp 96.6 F L 01/01/20 08:00 Pulse 61 01/01/20 08:00 Resp 19 01/01/20 08:00 BP 129/64 01/01/20 08:00 Pulse Ox 99 01/01/20 08:00 Intake & Output 12/31/19 01/01/20 01/01/20 18:59 06:59 18:59 Intake Total 037.010 5311 Balance 573.590 2712 Intake: IV 100 Intake, IV Titration 297.752 1967 Amount Heparin Sod,Pork in 0.45% 108.755 NaCl 25,000 unit In 0.45 % NaCl 1 250ml.bag @ 10. 02 UNITS/KG/HR 9.999 mls/ hr IV .Q24H [facility] Rx#: [id number] Magnesium Sulfate-D5w Pmx 200 1 gm In Dextrose/Water 1 100ml.bag @ 100 mls/hr IVPB Q1H [facility] Rx#: [id number] Sodium Chloride 0.9% 1, 1000 000 ml In Empty Bag 1 bag @ 1 ML/KG/HR 96.8 mls/hr IV .[id number] [facility] Rx#: [id number] Oral 458 Other: Voiding Method Toilet Toilet Toilet # Voids 1 1 - Exam PHYSICAL EXAMINATION: GENERAL: 59-year-old gentleman in no acute distress at the time of my examination HEENT: Head is atraumatic, normocephalic. Pupils equal, round. Sclera anicteric. Conjunctiva are clear. Mucous membranes of the mouth are moist. Neck is supple. There is no elevated jugular venous pressure. No carotid bruit is heard. HEART EXAMINATION: Heart S1, S2 normal. No murmur or gallop heard. CHEST EXAMINATION: Lungs are clear to auscultation and precussion. No chest wall tenderness is noted on palpation or with deep breathing. ABDOMEN: Soft, nontender. Bowel sounds are heard. No organomegaly noted. EXTREMITIES: 2+ peripheral pulses with no evidence of peripheral edema and no calf tenderness noted. Right radial site clean and dry, good distal pulse. NEUROLOGIC patient is awake, alert and oriented 3 . - Labs CBC & Chem 7: 12/31/19 06:09 01/01/20 06:13 Labs: Abnormal Lab Results - Last 24 Hours (Table) 12/31/19 12/31/19 12/31/19 Range/Units 11:53 17:14 20:58 Glucose (74-99) mg/dL POC Glucose (mg/dL) 122 H 108 H 120 H (75-99) mg/dL 01/01/20 01/01/20 Range/Units 06:13 06:41 Glucose 144 H (74-99) mg/dL POC Glucose (mg/dL) 127 H (75-99) mg/dL Assessment and Plan Plan: Assessment and plan #1 chest pressure with associated palpitations, troponins 0.012, 0.064, 0.086, possible acute coronary syndrome. #2 atrial tachycardia with rapid ventricular response, paroxysmal, frequent episodes, could also be the underlying problem contributing to the abnormality in troponin. #3 paroxysmal atrial fibrillation for which the patient takes Eliquis #4 coronary artery disease with prior LAD stenting #5 hypertension #6 diabetes #7 hyperlipidemia #8 prior nicotine dependence #9 EtOH use, at least 3 beers a day, recent prior to this episode patient had drank several alcoholic beverages. #10 hypomagnesemia Plan Patient underwent a cardiac catheterization yesterday which did not reveal any significantly new findings. Medical therapy was advised. We will change his dose of beta talya to an a.m. dose, discontinue the Nitropaste. An echocardiogram with Doppler study was performed which revealed an ejection fraction of 55-60%. He should be able to be discharged home today from cardiology's perspective. Follow-up appointment with Dr. Islas in the office in one week. EP study scheduled as an outpatient. DNP note has been reviewed, I agree with a documented findings and plan of care. Patient was seen and examined.
[2020-01-01 11:43] LABS: Glucose,Whole Blood 111 mg/dL (75-99)
--- NOTE | 2020-01-01 11:57 | P.PN ---
Progress Note - Text Impression Type II SD Mild progression of CAD Intolerance to statins including atorvastatin and Crestor -severe muscle pains Currently on low dose of Pravachol Recurrent atrial tachycardia/atrial fibrillation Regular alcohol use Coronary stenting to the LAD in the past, ostial LAD Mild in-stent restenosis Diffuse disease in the diagonal vessel nonobstructive, medical treatment recommended TSH 2.8 LDL 61 Normal renal function Suggest Add a detailed discussion the patient and would consider daily dose of Pravachol (tolerated Consider adding Zetia 10 mg by mouth daily Continue current medications We'll schedule for an EP study and ablation I will perform an EP study and ablation for atrial tachycardia with RFA and cr yoablation the pulmonary veins for paroxysmal A. fib
--- NOTE | 2020-01-01 11:58 | P.DS ---
Providers Date of admission: 12/31/19 10:45 Expected date of discharge: 01/01/20 Attending physician: Gregg Fernandez MD Consults: 12/30/19 09:50 Consult Physician Urgent Consulting Provider: John Longo Consult Reason/Comments: Chest pain, rapid A. fib Do you want consulting provider notified?: Yes Primary care physician: Rubia Martinez Hospital Course: Final diagnoses Assessment: Final diagnoses: Acute non-ST elevated [place] with elevated troponin levels.Cardiac catheterization reporting mild in-stent stenosis involving the proximal LAD. Atrial fibrillation with rapid ventricular rate, converted to sinus rhythm with beta talya Atrial tachycardia Coronary artery disease with history of stent placement 2 years ago Paroxysmal atrial fibrillation on anticoagulation with Eliquis Hypertension Hyperlipidemia Previous history of smoking Alcohol use night before Obesity with BMI 31.6 DVT prophylaxis patient is HEPARIN drip recent admission due to sudden onset of double vision-stroke ruled out per spouse Hospital course:This is a 59-year-old gentleman admitted with acute non-STEMI, atrial fibrillation with RVR and multiple other medical issues. Evaluated by cardiology, scheduled for cardiac catheterization today. Converted to sinus rhythm on beta talya. Denies chest pain, palpitations or shortness of breath. Cardiac catheterization reporting mild in-stent stenosis involving the proximal LAD and diffuse disease involving the rest of the system, and maximizing medical therapy. Patient states unable to tolerate high-dose statins, severe muscle aches-has attempted Lipitor and Crestor in the past. We will address possible Labalo or obtain preauth for Repatha in clinic outpatient Cleared by cardiology for discharge. Patient is being discharged home in stable condition with guarded prognosis. The impression and plan of care has been dictated as directed. : I performed a history and examination of this patient, discussed the same with the dictator. I agree with the dictator's note ,documented as a scribe. Any additional findings or plans will be noted.. Patient Condition at Discharge: Stable Plan - Discharge Summary Discharge Rx Participant: No New Discharge Prescriptions: New Nicotine 21Mg/24Hr Patch [Habitrol] 1 patch TRANSDERM DAILY #30 patch Multivitamins, Thera [Multivitamin (formulary)] 1 each PO DAILY@1200 #30 tab Thiamine [Vitamin B-1] 100 mg PO DAILY #30 tab Continue Lisinopril-Hctz 20-25 mg [Zestoretic 20-25] 1 tab PO W/BRKFST Nitroglycerin Sl Tabs [Nitrostat] 0.4 mg SUBLINGUAL Q5M PRN tab PRN Reason: Chest Pain Apixaban [Eliquis] 5 mg PO BID Aspirin 81 mg PO HS metFORMIN HCL [metFORMIN HCL ER] 750 mg PO BID Pravastatin Sodium [Pravachol] 40 mg PO HS Cholecalciferol [Vitamin D3 (25 Mcg = 1000 Iu)] 1,000 unit PO DAILY Ubidecarenone [Co Q-10] 100 mg PO DAILY Changed Metoprolol Succinate (ER) [Toprol XL] 50 mg PO DAILY #0 Discharge Medication List Lisinopril-Hctz 20-25 mg [Zestoretic 20-25] 1 tab PO W/BRKFST 10/09/17 [History] Nitroglycerin Sl Tabs [Nitrostat] 0.4 mg SUBLINGUAL Q5M PRN tab 10/12/17 [Rx] Apixaban [Eliquis] 5 mg PO BID 12/30/19 [History] Aspirin 81 mg PO HS 12/30/19 [History] Cholecalciferol [Vitamin D3 (25 Mcg = 1000 Iu)] 1,000 unit PO DAILY 12/30/19 [History] Pravastatin Sodium [Pravachol] 40 mg PO HS 12/30/19 [History] Ubidecarenone [Co Q-10] 100 mg PO DAILY 12/30/19 [History] metFORMIN HCL [metFORMIN HCL ER] 750 mg PO BID 12/30/19 [History] Metoprolol Succinate (ER) [Toprol XL] 50 mg PO DAILY #0 01/01/20 [Rx] Multivitamins, Thera [Multivitamin (formulary)] 1 each PO DAILY@1200 #30 tab 01/01/20 [Rx] Nicotine 21Mg/24Hr Patch [Habitrol] 1 patch TRANSDERM DAILY #30 patch 01/01/20 [Rx] Thiamine [Vitamin B-1] 100 mg PO DAILY #30 tab 01/01/20 [Rx] Follow up Appointment(s)/Referral(s): Jaylan Islas MD [STAFF PHYSICIAN] - 01/10/20 8:30 am (TUESDAY ) Gregg Fernandez MD [STAFF PHYSICIAN] - 01/02/20 3:45 pm Patient Instructions/Handouts: A-fib (Atrial Fibrillation) (DC), After Radial Heart Catheterization (GEN) Activity/Diet/Wound Care/Special Instructions: Patient unable to tolerate high-dose statins-experiences significant muscle aches/has attempted Lipitor, Crestor. In clinic with Dr. Gregg Toussaint, will address, possibly start Labalo or attempt to get preauth for Repatha.
[2020-01-01] MEDS ORDERED: METOPROLOL SUCCINATE (ER) 50 MG TAB.ER.24H PO SCH (12:03)
[2020-01-01] MEDS: MULTIVITAMINS, THERA 1 EACH TAB PO SCH (12:10)
[2020-01-01] MEDS: THIAMINE 100 MG TAB PO SCH (12:11)
[2020-01-02] MEDS ORDERED: METOPROLOL SUCCINATE (ER) 50 MG TAB.ER.24H PO SCH (09:00)
== END 2020-01-01 12:19 | disposition home or self-care (01) | DRG 281 ==
LOC: EC 08:18 → 3SCARD 09:50 → OBSVTOIN 12-31 10:45
PROVIDERS: ADMIT Family Medicine; ATTEND Family Medicine
PROC: 4A023N7 Measurement of Cardiac Sampling and Pressure, Left Heart, Percutaneous Approach (ICD-10-PCS; principal; 2019-12-31 13:55)
PROC: B2111ZZ Fluoroscopy of Multiple Coronary Arteries using Low Osmolar Contrast (ICD-10-PCS; principal; 2019-12-31 13:55)
DX: I21.4 Non-ST elevation (NSTEMI) myocardial infarction (principal); T82.855A Stenosis of coronary artery stent, initial encounter; I47.1 Supraventricular tachycardia; Y83.1 Surgical operation with implant of artificial internal device as the cause of abnormal reaction of the patient, or of later complication, without mention of misadventure at the time of the procedure; I44.7 Left bundle-branch block, unspecified; I48.0 Paroxysmal atrial fibrillation; E78.5 Hyperlipidemia, unspecified; I10 Essential (primary) hypertension; E66.9 Obesity, unspecified; I25.10 Atherosclerotic heart disease of native coronary artery without angina pectoris; E83.42 Hypomagnesemia; E11.9 Type 2 diabetes mellitus without complications; Z95.5 Presence of coronary angioplasty implant and graft; Z11.59 Encounter for screening for other viral diseases; Z98.890 Other specified postprocedural states; Z87.891 Personal history of nicotine dependence; Z83.3 Family history of diabetes mellitus; Z82.3 Family history of stroke; Z68.31 Body mass index [BMI] 31.0-31.9, adult; Z79.01 Long term (current) use of anticoagulants; Z79.02 Long term (current) use of antithrombotics/antiplatelets; Z79.82 Long term (current) use of aspirin; Z79.84 Long term (current) use of oral hypoglycemic drugs; Z79.899 Other long term (current) drug therapy; Z82.49 Family history of ischemic heart disease and other diseases of the circulatory system; Z88.2 Allergy status to sulfonamides
CPT/HCPCS: 36415; 71046; 80048; 80053; 80061; 82550; 83735; 83880; 84443; 84484; 85025; 85610; 85730; 93005; 93306; 93458; 96374; 96376; 99291

== ENCOUNTER → 2020-07-04 | Outpatient (CLI) | payer BC ==
--- NOTE | 2020-07-04 08:43 | CTL ---
EXAMINATION TYPE: CT Low Dose Lung DATE OF EXAM ORDERED: 07/04/2020 HISTORY: Long-term tobacco use. Lung cancer screening CT DLP: 112.[address] CTDI: 3.2 mGy Automated exposure control for dose reduction was used. SCREENING VISIT: Initial study COMPARISON: Chest x-ray December 30, 2019 TECHNIQUE: Low dose computed tomography scan was performed through the chest at 1 mm thick sections a nd reconstructed images in the coronal plane at [address] DIAGNOSTIC QUALITY: Satisfactory FINDINGS: LUNG NODULES: Present, detailed below: There is 4 x 3 mm subpleural nodule left lower lobe axial image 178. There is 5 x 4 mm posterior right upper lobe nodule axial image 46. LUNGS: COPD: Severity: Mild Fibrosis: Severity: None Lymph nodes: None Other findings: None RIGHT PLEURAL SPACE: Effusion: None Calcification: None Thickening: None Pneumothorax: None LEFT PLEURAL SPACE: Effusion: None Calcification: None Thickening: None Pneumothorax: None HEART: Heart Size: Normal Coronary calcification: Severe three-vessel Pericardial effusion: None OTHER FINDINGS: Upper abdomen: None Bony thorax: Mild to moderate multilevel spurring. Supraclavicular region: Bilateral subareolar flame-shaped gynecomastia. Other: None. IMPRESSION: Some small scattered nodules. No greater than [address] LUNG RAD AND CT CHEST RECOMMENDATION: Lung-Rad 2 Benign Appearance or Behavior: Continue annual sc reening with LDCT in 12 months. S Modifier (other clinically significant findings): S Severe three-vessel coronary artery calcification should be correlated with additional cardiac risk f actors.
== END | disposition home or self-care (01) ==
LOC: RADCTMAIN 07:41
PROVIDERS: ATTEND Family Medicine
DX: Z12.2 Encounter for screening for malignant neoplasm of respiratory organs (principal); R91.8 Other nonspecific abnormal finding of lung field; Z87.891 Personal history of nicotine dependence
CPT/HCPCS: 71271

== ENCOUNTER 2020-10-16 09:57 | Observation (INO) | payer BC ==
[2020-10-16] MEDS ORDERED: NITROGLYCERIN OINT 1 INCH/GM PACKET TOPICAL STA (10:35)
[2020-10-16] MEDS ORDERED: ASPIRIN 81 MG PO STA (10:35)
[2020-10-16 10:50] LABS: Basophils % (A) 0 %; Eosinophils # (A) 0.2 k/uL (0-0.7); Eosinophils % (A) 2 %; HCT 41.9 % (39.0-53.0); HGB 14.5 gm/dL (13.0-17.5); Lymphocytes # (A) 1.8 k/uL (1.0-4.8); Lymphocytes % (A) 24 %; MCH 30.8 pg (25.0-35.0); MCHC 34.6 g/dL (31.0-37.0); MCV 88.9 fL (80.0-100.0); Mean Platelet Volume 8.8; Monocytes # (A) 0.4 k/uL (0-1.0); Monocytes % (A) 6 %; Neutrophils # (A) 4.8 k/uL (1.3-7.7); Neutrophils % (A) 66 %; Platelet Count 175 k/uL (150-450); RBC 4.71 m/uL (4.30-5.90); RDW 13.3 % (11.5-15.5); WBC 7.3 k/uL (3.8-10.6)
--- NOTE | 2020-10-16 10:52 | XR ---
EXAMINATION TYPE: XR chest 2V DATE OF EXAM: 10/16/2020 COMPARISON: Chest x-ray December 30, 2019 HISTORY: Chest pain this morning. TECHNIQUE: Frontal and lateral views of the chest are obtained. FINDINGS: There is chronic parenchymal change without suspicious focal air space opacity, pleural ef fusion, or pneumothorax seen. The cardiac silhouette size is stable and within normal limits. Multil evel spurring in the spine redemonstrated. IMPRESSION: Chronic changes without acute pulmonary process.
--- NOTE | 2020-10-16 10:54 | ED ---
General Adult HPI - General Chief complaint: Chest Pain Stated complaint: Chest Pain Time Seen by Provider: 10/16/20 10:00 Source: patient, family, RN notes reviewed, old records reviewed Mode of arrival: ambulatory Limitations: no limitations - History of Present Illness Initial comments: This is a 60-year-old male who presents emergency department with past medical history significant for coronary artery stents diabetes hypertension high cholesterol. Patient also is a very strong family history of heart disease. Patient also has history of atrial fibrillation and is on eliquis. Patient states he felt his heart rate going to A. fib today but it has subsequently gone back to normal rate. Patient states he's had an issue swallowing lately and every time he swallows he has a pain in his chest that lasted about 15 seconds and it gives him kind of a head rushes well. Patient states his been ongoing for 2 weeks. Patient states she was going to his primary medical care doctor about this problem when he started having chest pain that radiated to his arm and some shortness of breath he decided to come to the emergency department. She currently has some chest discomfort as well. - Related Data Home Medications Medication Instructions Recorded Confirmed Lisinopril-Hctz 20-25 mg 1 tab PO DAILY 10/09/17 10/16/20 [Zestoretic 20-25] Apixaban [Eliquis] 5 mg PO BID 12/30/19 10/16/20 Aspirin 81 mg PO DAILY 12/30/19 10/16/20 metFORMIN HCL [metFORMIN HCL ER] 750 mg PO DAILY 12/30/19 10/16/20 Cholecalciferol [Vitamin D3 (25 50 mcg PO DAILY 10/16/20 10/16/20 Mcg = 1000 Iu)] Magnesium Oxide [Mag-Ox] 400 mg PO DAILY 10/16/20 10/16/20 Metoprolol Succinate (ER) [Toprol 50 mg PO HS 10/16/20 10/16/20 XL] Multivitamins, Thera [Multivitamin 1 tab PO DAILY 10/16/20 10/16/20 (formulary)] Simvastatin [Zocor] 10 mg PO HS 10/16/20 10/16/20 Previous Rx's Medication Instructions Recorded Nitroglycerin Sl Tabs [Nitrostat] 0.4 mg SUBLINGUAL Q5M PRN tab 10/12/17 Thiamine [Vitamin B-1] 100 mg PO DAILY #30 tab 01/01/20 Allergies Allergy/AdvReac Type Severity Reaction Status Date / Time Sulfa (Sulfonamide Allergy Rash/Hives, Verified 10/16/20 10:51 Antibiotics) Blood in urine Review of Systems ROS Statement: Those systems with pertinent positive or pertinent negative responses have been documented in the HPI. ROS Other: All systems not noted in ROS Statement are negative. 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 Past Anesthesia/Blood Transfusion Reactions: No Reported Reaction Date of Last Stent Placement:: 10/2017 Past Psychological History: No Psychological Hx Reported Smoking Status: Former smoker Past Alcohol Use History: None Reported, Daily Past Drug Use History: None Reported - Past Family History Father Family Medical History: Coronary Artery Disease (CAD), Hyperlipidemia, Hypertension Additional Family Medical History / Comment(s): CABG Mother Family Medical History: Coronary Artery Disease (CAD), CVA/TIA, Diabetes Mellitus, Hyperlipidemia, Hypertension, Myocardial Infarction ([place]) Additional Family Medical History / Comment(s): 7 stents Brother(s) Family Medical History: Diabetes Mellitus Additional Family Medical History / Comment(s): CABG Sister(s) Additional Family Medical History / Comment(s): CABG and valve General Exam - General Exam Comments Initial Comments: GENERAL: Patient is well-developed and well-nourished. Patient is nontoxic and well- hydrated and is in mild distress. ENT: Neck is soft and supple. No significant lymphadenopathy is noted. Oropharynx is clear. Moist mucous membranes. Neck has full range of motion without eliciting any pain. EYES: The sclera were anicteric and conjunctiva were pink and moist. Extraocular movements were intact and pupils were equal round and reactive to light. Eyelids were unremarkable. PULMONARY: Unlabored respirations. Good breath sounds bilaterally. No audible rales rhonchi or wheezing was noted. CARDIOVASCULAR: There is a regular rate and rhythm without any murmurs gallops or rubs. ABDOMEN: Soft and nontender with normal bowel sounds. SKIN: Skin is clear with no lesions or rashes and otherwise unremarkable. NEUROLOGIC: Patient is alert and oriented x3. Cranial nerves II through XII are grossly intact. Motor and sensory are also intact. Normal speech, volume and content. Symmetrical smile. MUSCULOSKELETAL: Normal extremities with adequate strength and full range of motion. No lower extremity swelling or edema. No calf tenderness. LYMPHATICS: No significant lymphadenopathy is noted PSYCHIATRIC: Normal psychiatric evaluation. Limitations: no limitations Course Vital Signs 10/16/20 09:59 Temperature 98 F Pulse Rate 80 Respiratory 18 Rate Blood Pressure 132/73 O2 Sat by Pulse 99 Oximetry Medical Decision Making - Medical Decision Making EKG shows normal sinus rhythm at 72 bpm ND interval is 140 42 QT Intervals 46 QTC Is 444. Patient's EKG Shows Left Bundle Branch Block. Chest x-ray shows no acute abnormality. I spoke with Dr. Evans he agreed to admit the patient admitted the patient wrote admitting orders and continue to follow the troponin as an inpatient. And I consulted GI for the dysphagia - Lab Data Result diagrams: 10/16/20 10:37 10/16/20 10:37 Lab Results 10/16/20 10/16/20 10/16/20 Range/Units 10:37 10:37 10:37 WBC 7.3 (3.8-10.6) k/uL RBC 4.71 (4.30-5.90) m/uL Hgb 14.5 (13.0-17.5) gm/dL Hct 41.9 (39.0-53.0) % MCV 88.9 (80.0-100.0) fL MCH 30.8 (25.0-35.0) pg MCHC 34.6 (31.0-37.0) g/dL RDW 13.3 (11.5-15.5) % Plt Count 175 (150-450) k/uL MPV 8.8 Neutrophils % 66 % Lymphocytes % 24 % Monocytes % 6 % Eosinophils % 2 % Basophils % 0 % Neutrophils # 4.8 (1.3-7.7) k/uL Lymphocytes # 1.8 (1.0-4.8) k/uL Monocytes # 0.4 (0-1.0) k/uL Eosinophils # 0.2 (0-0.7) k/uL Basophils # 0.0 (0-0.2) k/uL PT 11.0 (9.0-12.0) sec INR 1.0 (<1.2) APTT 27.2 (22.0-30.0) sec D-Dimer (<0.60) mg/L FEU Sodium 138 (137-145) mmol/L Potassium 4.3 (3.5-5.1) mmol/L Chloride 104 (98-107) mmol/L Carbon Dioxide 24 (22-30) mmol/L Anion Gap 10 mmol/L BUN 15 (9-20) mg/dL Creatinine 0.75 (0.66-1.25) mg/dL Est GFR (CKD-EPI)AfAm >90 (>60 ml/min/1.73 sqM) Est GFR (CKD-EPI)NonAf >90 (>60 ml/min/1.73 sqM) Glucose 99 (74-99) mg/dL Calcium 10.1 (8.4-10.2) mg/dL Magnesium 2.1 (1.6-2.3) mg/dL Total Bilirubin 0.5 (0.2-1.3) mg/dL AST 22 (17-59) U/L ALT 17 (4-49) U/L Alkaline Phosphatase 60 (38-126) U/L Troponin I (0.000-0.034) ng/mL Total Protein 7.3 (6.3-8.2) g/dL Albumin 4.6 (3.5-5.0) g/dL 10/16/20 10/16/20 Range/Units 10:37 10:37 WBC (3.8-10.6) k/uL RBC (4.30-5.90) m/uL Hgb (13.0-17.5) gm/dL Hct (39.0-53.0) % MCV (80.0-100.0) fL MCH (25.0-35.0) pg MCHC (31.0-37.0) g/dL RDW (11.5-15.5) % Plt Count (150-450) k/uL MPV Neutrophils % % Lymphocytes % % Monocytes % % Eosinophils % % Basophils % % Neutrophils # (1.3-7.7) k/uL Lymphocytes # (1.0-4.8) k/uL Monocytes # (0-1.0) k/uL Eosinophils # (0-0.7) k/uL Basophils # (0-0.2) k/uL PT (9.0-12.0) sec INR (<1.2) APTT (22.0-30.0) sec D-Dimer <0.17 (<0.60) mg/L FEU Sodium (137-145) mmol/L Potassium (3.5-5.1) mmol/L Chloride (98-107) mmol/L Carbon Dioxide (22-30) mmol/L Anion Gap mmol/L BUN (9-20) mg/dL Creatinine (0.66-1.25) mg/dL Est GFR (CKD-EPI)AfAm (>60 ml/min/1.73 sqM) Est GFR (CKD-EPI)NonAf (>60 ml/min/1.73 sqM) Glucose (74-99) mg/dL Calcium (8.4-10.2) mg/dL Magnesium (1.6-2.3) mg/dL Total Bilirubin (0.2-1.3) mg/dL AST (17-59) U/L ALT (4-49) U/L Alkaline Phosphatase (38-126) U/L Troponin I <0.012 (0.000-0.034) ng/mL Total Protein (6.3-8.2) g/dL Albumin (3.5-5.0) g/dL Disposition Clinical Impression: Chest pain, Dysphagia Disposition: ADMITTED IP TO THIS HOSP Referrals: Rubia Martinez DO [Primary Care Provider] - 1-2 days Time of Disposition: 12:13
[2020-10-16 11:04] LABS: Partial Thromboplastin Time 27.2 sec (22.0-30.0)
[2020-10-16 11:06] LABS: ALT 17 U/L (4-49); AST 22 U/L (17-59); African American GFR (CKD) >90 (>60 ml/min/1.73 sqM); Albumin 4.6 g/dL (3.5-5.0); Alkaline Phosphatase 60 U/L (38-126); Anion Gap 10 mmol/L; Blood Urea Nitrogen 15 mg/dL (9-20); Calcium 10.1 mg/dL (8.4-10.2); Carbon Dioxide 24 mmol/L (22-30); Chloride 104 mmol/L (98-107); Glucose 99 mg/dL (74-99); Magnesium 2.1 mg/dL (1.6-2.3); Non-African American GFR(CKD) >90 (>60 ml/min/1.73 sqM); Potassium 4.3 mmol/L (3.5-5.1); Sodium 138 mmol/L (137-145); Total Bilirubin 0.5 mg/dL (0.2-1.3); Total Protein 7.3 g/dL (6.3-8.2)
[2020-10-16] MEDS ORDERED: NITROGLYCERIN SL TABS 0.4 MG TAB SUBLINGUAL PRN ×2 (12:13→13:45)
--- NOTE | 2020-10-16 13:55 | P.HPIM ---
History of Present Illness Patient is a pleasant 60-year-old male came in with complaints of chest pressure-like sensation moderate severity with possible radiation to the left arm with numbness in the left arm be started today lasted for about an hour without any diaphoresis, nausea followed by an episode of atrial fibrillation with a heart rate going up to 150 which improved within an hour as well. Patient denied any fever chills. Patient does have some rotator cuff problems in the left hand and patient does have some discomfort from that which is ch ronic although his numbness in the left arm is little different and has been present since morning. Patient denied any fever chills patient had a history of coronary artery disease with stents about 3 years ago. Patient was also complaining of symptoms of swallowing difficulties and spasm whenever he eats and not exactly odynophagia. Patient did have lightheadedness after an episode of A. fib. Review of Systems REVIEW OF SYSTEMS: CONSTITUTIONAL: No fever, no malaise, no fatigue. HEENT: No recent visual problems or hearing problems. Denied any sore throat. CARDIOVASCULAR: No orthopnea, PND, no palpitations, no syncope. PULMONARY: No shortness of breath, no cough, no hemoptysis. GASTROINTESTINAL: No diarrhea, no nausea, no vomiting, no abdominal pain. NEUROLOGICAL: No headaches, no weakness, no numbness. HEMATOLOGICAL: Denies any bleeding or petechiae. GENITOURINARY: Denies any burning micturition, frequency, or urgency. MUSCULOSKELETAL/RHEUMATOLOGICAL: Denies any joint pain, swelling, or any muscle pain. ENDOCRINE: Denies any polyuria or polydipsia. The rest of the 14-point review of systems is negative. 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 Past Anesthesia/Blood Transfusion Reactions: No Reported Reaction Date of Last Stent Placement:: 10/2017 Past Psychological History: No Psychological Hx Reported Smoking Status: Former smoker Past Alcohol Use History: None Reported, Daily Past Drug Use History: None Reported - Past Family History Father Family Medical History: Coronary Artery Disease (CAD), Hyperlipidemia, Hypertension Additional Family Medical History / Comment(s): CABG Mother Family Medical History: Coronary Artery Disease (CAD), CVA/TIA, Diabetes Mellitus, Hyperlipidemia, Hypertension, Myocardial Infarction ([place]) Additional Family Medical History / Comment(s): 7 stents Brother(s) Family Medical History: Diabetes Mellitus Additional Family Medical History / Comment(s): CABG Sister(s) Additional Family Medical History / Comment(s): CABG and valve Medications and Allergies Home Medications Medication Instructions Recorded Confirmed Type Lisinopril-Hctz 20-25 mg 1 tab PO DAILY 10/09/17 10/16/20 History [Zestoretic 20-25] Nitroglycerin Sl Tabs [Nitrostat] 0.4 mg SUBLINGUAL Q5M PRN tab 10/12/17 10/16/20 Rx Apixaban [Eliquis] 5 mg PO BID 12/30/19 10/16/20 History Aspirin 81 mg PO DAILY 12/30/19 10/16/20 History metFORMIN HCL [metFORMIN HCL ER] 750 mg PO DAILY 12/30/19 10/16/20 History Thiamine [Vitamin B-1] 100 mg PO DAILY #30 tab 01/01/20 10/16/20 Rx Cholecalciferol [Vitamin D3 (25 50 mcg PO DAILY 10/16/20 10/16/20 History Mcg = 1000 Iu)] Magnesium Oxide [Mag-Ox] 400 mg PO DAILY 10/16/20 10/16/20 History Metoprolol Succinate (ER) [Toprol 50 mg PO HS 10/16/20 10/16/20 History XL] Multivitamins, Thera [Multivitamin 1 tab PO DAILY 10/16/20 10/16/20 History (formulary)] Simvastatin [Zocor] 10 mg PO HS 10/16/20 10/16/20 History Allergies Allergy/AdvReac Type Severity Reaction Status Date / Time Sulfa (Sulfonamide Allergy Rash/Hives, Verified 10/16/20 10:51 Antibiotics) Blood in urine Physical Exam Vitals: Vital Signs Temp Pulse Resp BP Pulse Ox 10/16/20 09:59 98 F 80 18 132/73 99 Intake and Output 10/15/20 10/16/20 10/16/20 22:59 06:59 14:59 Other: Weight 90.718 kg PHYSICAL EXAMINATION: GENERAL: The patient is alert and oriented x3, not in any acute distress. Well developed, well nourished. HEENT: Pupils are round and equally reacting to light. EOMI. No scleral icterus. No conjunctival pallor. Normocephalic, atraumatic. No pharyngeal erythema. No thyromegaly. CARDIOVASCULAR: S1 and S2 present. No murmurs, rubs, or gallops. PULMONARY: Chest is clear to auscultation, no wheezing or crackles. ABDOMEN: Soft, nontender, nondistended, normoactive bowel sounds. No palpable organomegaly. MUSCULOSKELETAL: No joint swelling or deformity. EXTREMITIES: No cyanosis, clubbing, or pedal edema. NEUROLOGICAL: Gross neurological examination did not reveal any focal deficits. SKIN: No rashes. Results CBC & Chem 7: 10/16/20 10:37 10/16/20 10:37 Assessment and Plan Plan: -Chest pain: We will rule out a concurrent syndromes patient will be evaluated by cardiology may need stress test depending on the troponin levels. EKG did show left bundle branch block which is not new. First set of troponin is negative. Chest x-ray did not show any significant abnormality -Esophageal spasm/odynophagia: Patient may have oral thrush, we'll start him on flucanazole for now is the endoscopy doesn't show any candidate Majo vaginitis flucanazole can be discontinued. -History of coronary artery disease with stents in the past -Atrial fibrillation for which patient is on Eliquis which will be resumed patient is presently sinus rhythm probably has proximal A. fib -Hyperlipidemia -Hypertension -Type 2 diabetes mellitus metformin will be held and patient will be on sliding scale insulin
[2020-10-16] MEDS ORDERED: FLUCONAZOLE IN NACL,ISO-OSM 100 MG in SALINE 1 50ML.BAG IVPB SCH (14:15)
--- NOTE | 2020-10-16 14:37 | P.CONS ---
History of Present Illness - Reason for Consult Consult date: 10/16/20 Dysphagia Requesting physician: Humera Evans - Chief Complaint Chest pain - History of Present Illness This is a pleasant 60-year-old white male who presented to the emergency department with complaints of chest pain that was radiating to his left arm. He has a past medical history significant for coronary artery disease with stents, diabetes, hypertension, high cholesterol and atrial fibrillation for which he is on Eliquis. He states he felt his heart racing and going into atrial fibrillation earlier today but then states he feels like it went back to normal rate. He's been having issues with swallowing lately for about the last one week where he feels a pain in his chest that last about 15 seconds after he swallows food or takes big gulps of fluid. He started having chest pain and pressure in the center of his chest radiating to his arm and shortness of breath he came to the emergency department for further evaluation. He states he gets this pressure in his chest and goes into his head where he feels lightheaded, he states this has been going on for the last 3 years since he had his cardiac stents put in. He denies any history of acid reflux indigestion or heartburn. He reports no history of peptic ulcer disease, never had an upper endoscopy. He did however have a colonoscopy about [address] Thomas which he states he had colon polyps and is due for repeat screening colonoscopy. His last dose of this was today, all of his lab results are within normal limits. Review of Systems Constitutional: Denies chills, Denies fever Ears, nose, mouth and throat: Denies headache, Denies sore throat Cardiovascular: Reports chest pain, Reports irregular heart beat, Reports rapid heart beat, Reports shortness of breath Respiratory: Denies cough Gastrointestinal: Reports as per HPI, Denies abdominal pain, Denies diarrhea, Denies nausea, Denies vomiting Musculoskeletal: Denies myalgias Integumentary: Denies pruritus, Denies rash Neurological: Denies numbness, Denies weakness Endocrine: Denies fatigue, Denies weight change 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 Past Anesthesia/Blood Transfusion Reactions: No Reported Reaction Date of Last Stent Placement:: 10/2017 Past Psychological History: No Psychological Hx Reported Smoking Status: Former smoker Past Alcohol Use History: None Reported, Daily Past Drug Use History: None Reported - Past Family History Father Family Medical History: Coronary Artery Disease (CAD), Hyperlipidemia, Hypertension Additional Family Medical History / Comment(s): CABG Mother Family Medical History: Coronary Artery Disease (CAD), CVA/TIA, Diabetes Mellitus, Hyperlipidemia, Hypertension, Myocardial Infarction ([place]) Additional Family Medical History / Comment(s): 7 stents Brother(s) Family Medical History: Diabetes Mellitus Additional Family Medical History / Comment(s): CABG Sister(s) Additional Family Medical History / Comment(s): CABG and valve Medications and Allergies Home Medications Medication Instructions Recorded Confirmed Type Lisinopril-Hctz 20-25 mg 1 tab PO DAILY 10/09/17 10/16/20 History [Zestoretic 20-25] Nitroglycerin Sl Tabs [Nitrostat] 0.4 mg SUBLINGUAL Q5M PRN tab 10/12/17 10/16/20 Rx Apixaban [Eliquis] 5 mg PO BID 12/30/19 10/16/20 History Aspirin 81 mg PO DAILY 12/30/19 10/16/20 History metFORMIN HCL [metFORMIN HCL ER] 750 mg PO DAILY 12/30/19 10/16/20 History Thiamine [Vitamin B-1] 100 mg PO DAILY #30 tab 01/01/20 10/16/20 Rx Cholecalciferol [Vitamin D3 (25 50 mcg PO DAILY 10/16/20 10/16/20 History Mcg = 1000 Iu)] Magnesium Oxide [Mag-Ox] 400 mg PO DAILY 10/16/20 10/16/20 History Metoprolol Succinate (ER) [Toprol 50 mg PO HS 10/16/20 10/16/20 History XL] Multivitamins, Thera [Multivitamin 1 tab PO DAILY 10/16/20 10/16/20 History (formulary)] Simvastatin [Zocor] 10 mg PO HS 10/16/20 10/16/20 History Allergies Allergy/AdvReac Type Severity Reaction Status Date / Time Sulfa (Sulfonamide Allergy Rash/Hives, Verified 10/16/20 10:51 Antibiotics) Blood in urine Physical Exam Vitals: Vital Signs Temp Pulse Resp BP Pulse Ox 10/16/20 09:59 98 F 80 18 132/73 99 Intake and Output 10/15/20 10/16/20 10/16/20 22:59 06:59 14:59 Other: Weight 90.718 kg General appearance: The patient is alert, oriented, appears in no acute distress. HET: Head is normocephalic and atraumatic. Oropharynx is clear without lesions. Neck: Supple without lymphadenopathy. Trachea midline. Heart: S1 S2. Regular rate and rhythm. Lungs: Clear to auscultation Abdomen: Soft, nontender, nondistended with bowel sounds. No guarding or rigidity. Extremities: Normal skin color and turgor. No pedal edema. Neurological: No focal deficits. Alert and oriented 3. Results CBC & Chem 7: 10/16/20 10:37 10/16/20 10:37 Chest x-ray: report reviewed (Chronic changes without acute pulmonary process) Assessment and Plan (1) Dysphagia Narrative/Plan: Pleasant 60-year-old male who presented to the hospital with complaints of chest pain and pressure. He has a prior history of coronary artery disease with stents and states he's had chest pressure for the last 3 years after his stents. He is also complaining of pain after swallowing that began approximately 1 week ago. He states it lasts for about 10-15 seconds in his chest and feels like it goes up his throat to his head. He states it's with larger bites as well as gulp of fluid. He denies any nausea, vomiting, or abdominal pain. No associated regurgitation. He has no past history of peptic ulcer disease or previous EGD. Currently does not take any medications for acid reflux. Consideration for possible inpatient or outpatient upper endoscopy, however at this time cardiology will need to see and clear patient. Current Visit: Yes Status: Acute Code(s): R13.10 - DYSPHAGIA, UNSPECIFIED SNOMED Code(s): 83284417 (2) History of coronary artery disease Current Visit: Yes Status: Acute Code(s): Z86.79 - PERSONAL HISTORY OF OTHER DISEASES OF THE CIRCULATORY SYSTEM SNOMED Code(s): 824231958 (3) History of atrial fibrillation Narrative/Plan: On Eliquis Current Visit: Yes Status: Acute Code(s): Z86.79 - PERSONAL HISTORY OF OTHER DISEASES OF THE CIRCULATORY SYSTEM SNOMED Code(s): 607401868 (4) Chest pain Current Visit: Yes Status: Acute Code(s): R07.9 - CHEST PAIN, UNSPECIFIED SNOMED Code(s): 37122703 Plan: 1. Continue symptomatic and supportive care 2. Protonix 40 mg twice a day 3. Await cardiology evaluation and recommendations 4. Clear liquid diet 5. Hold Eliquis 6. Further recommendations to follow, may consider EGD if symptoms do not improve with medications Thank you for this consultation, we will continue to follow Dr. Flory Longo I agree with the dictator's note, documented as a scribe by Constanza George.
[2020-10-16] MEDS: PANTOPRAZOLE 40 MG/10 ML VIAL IVP SCH ×2 (14:57→20:05)
[2020-10-16] MEDS: METOPROLOL SUCCINATE (ER) 50 MG TAB.ER.24H PO SCH (16:07)
[2020-10-16] MEDS ORDERED: DILTIAZEM DRIP BOLUS FROM BAG 1 MG SOLN IV ONE (16:57)
[2020-10-16 17:27] LABS: Glucose,Whole Blood 94 mg/dL (75-99)
[2020-10-16] MEDS: DILTIAZEM 125 MG in SODIUM CHLORIDE 0.9% 100 ML IV SCH (17:29)
[2020-10-16] MEDS: INSULIN ASPART (NovoLOG) 100 UNIT/ML VIAL SQ SCH ×2 (17:40→22:07)
[2020-10-16] MEDS: NITROGLYCERIN OINT 1 INCH/GM PACKET TOPICAL SCH ×2 (19:05→23:07)
[2020-10-16] MEDS ORDERED: ACETAMINOPHEN TAB 325 MG TAB PO PRN (19:58)
[2020-10-16] MEDS: ATORVASTATIN 10 MG TAB PO SCH (20:05)
[2020-10-16 20:38] LABS: Glucose,Whole Blood 100 mg/dL (75-99)
[2020-10-16] MEDS ORDERED: APIXABAN 5 MG TAB PO SCH (21:00)
[2020-10-17] MEDS: DILTIAZEM 125 MG in SODIUM CHLORIDE 0.9% 100 ML IV SCH ×2 (02:37→13:46)
[2020-10-17 03:51] LABS: Cholesterol 124 mg/dL (<200); HDL Cholesterol 38 mg/dL (40-60); LDL Cholesterol,Calculated 71 mg/dL (0-99); Triglycerides 77 mg/dL (<150)
[2020-10-17] MEDS: NITROGLYCERIN OINT 1 INCH/GM PACKET TOPICAL SCH (05:06)
[2020-10-17 06:17] LABS: Glucose,Whole Blood 106 mg/dL (75-99)
[2020-10-17] MEDS: INSULIN ASPART (NovoLOG) 100 UNIT/ML VIAL SQ SCH ×4 (06:19→20:10)
[2020-10-17] MEDS ORDERED: AMINOPHYLLINE 500 MG/20 ML VIAL IV PRN (08:42)
[2020-10-17] MEDS ORDERED: CAFFEINE CITRATE 60 MG/3 ML VIAL IV PRN (08:42)
[2020-10-17] MEDS ORDERED: REGADENOSON 0.4 MG/5 ML SYRINGE IV PRN (08:42)
[2020-10-17] MEDS ORDERED: ASPIRIN 325 MG TAB PO SCH (09:00)
--- NOTE | 2020-10-17 09:32 | P.DS ---
Providers Date of admission: 10/16/20 12:21 Attending physician: Humera Evans Consults: 10/16/20 12:13 Consult Physician Urgent Consulting Provider: Aura Longo Consult Reason/Comments: Dysphagia Do you want consulting provider notified?: Yes 10/16/20 12:14 Consult Physician Urgent Consulting Provider: [facility] Consult Reason/Comments: Chest pain Do you want consulting provider notified?: Yes Primary care physician: [facility] Course: Patient is a pleasant 60-year-old male came in with complaints of chest pressure-like sensation moderate severity with possible radiation to the left arm with numbness in the left arm be started today lasted for about an hour without any diaphoresis, nausea followed by an episode of atrial fibrillation with a heart rate going up to 150 which improved within an hour as well. Patient denied any fever chills. Patient does have some rotator cuff problems in the left hand and patient does have some discomfort from that which is chronic although his numbness in the left arm is little different and has been present since morning. Patient denied any fever chills patient had a history of coronary artery disease with stents about 3 years ago. Patient was also complaining of symptoms of swallowing difficulties and spasm whenever he eats and not exactly odynophagia. Patient did have lightheadedness after an episode of A. fib. 10/17/2020 patient oral thrush is better and patient admits using a steroid inhaler on experimental basis. He is not sure as he didn't eat anything since yesterday regarding his odynophagia. Patient will undergo stress test if that's negative patient most probably will be discharged patient had episode of atrial tachycardia arrest ventricular tachycardia which resolved with the Cardizem Cardizem was discontinued patient probably will need to follow with electrophysiology as an outpatient. PHYSICAL EXAMINATION: GENERAL: The patient is alert and oriented x3, not in any acute distress. Well developed, well nourished. HEENT: Pupils are round and equally reacting to light. EOMI. No scleral icterus. No conjunctival pallor. Normocephalic, atraumatic. No pharyngeal erythema. No thyromegaly. CARDIOVASCULAR: S1 and S2 present. No murmurs, rubs, or gallops. PULMONARY: Chest is clear to auscultation, no wheezing or crackles. ABDOMEN: Soft, nontender, nondistended, normoactive bowel sounds. No palpable organomegaly. MUSCULOSKELETAL: No joint swelling or deformity. EXTREMITIES: No cyanosis, clubbing, or pedal edema. NEUROLOGICAL: Gross neurological examination did not reveal any focal deficits. SKIN: No rashes. Assessment and Plan Plan: -Chest pain:ruled out a acute coronary syndromes patient will be discharged today after the stress to sepsis if that's negative. -Esophageal spasm/odynophagia: Oral thrush resolved. We'll give him 3 more days of flucanazole and patient will be discharged if cleared by gastroenterology patient had history of gastritis/esophagitis. Patient was discharged on Prilosec as well inpatient versus outpatient endoscopy as per gastroneurology. -History of coronary artery disease with stents in the past -Atrial fibrillation for which patient is on Eliquis which will be resumed patient is presently sinus rhythm probably has proximal A. fib and patient had an episode of suprapubic tachycardia which resolved patient is presently sinus rhythm -Hyperlipidemia -Hypertension -Type 2 diabetes mellitus Plan - Discharge Summary Discharge Rx Participant: No New Discharge Prescriptions: New Omeprazole [PriLOSEC] 40 mg PO [facility] #14 capsule. Continue Lisinopril-Hctz 20-25 mg [Zestoretic 20-25] 1 tab PO DAILY Nitroglycerin Sl Tabs [Nitrostat] 0.4 mg SUBLINGUAL Q5M PRN tab PRN Reason: Chest Pain Apixaban [Eliquis] 5 mg PO BID Aspirin 81 mg PO DAILY metFORMIN HCL [metFORMIN HCL ER] 750 mg PO DAILY Thiamine [Vitamin B-1] 100 mg PO DAILY #30 tab Magnesium Oxide [Mag-Ox] 400 mg PO DAILY Simvastatin [Zocor] 10 mg PO HS Metoprolol Succinate (ER) [Toprol XL] 50 mg PO HS Multivitamins, Thera [Multivitamin (formulary)] 1 tab PO DAILY Cholecalciferol [Vitamin D3 (25 Mcg = 1000 Iu)] 50 mcg PO DAILY Discharge Medication List Lisinopril-Hctz 20-25 mg [Zestoretic 20-25] 1 tab PO DAILY 10/09/17 [History] Nitroglycerin Sl Tabs [Nitrostat] 0.4 mg SUBLINGUAL Q5M PRN tab 10/12/17 [Rx] Apixaban [Eliquis] 5 mg PO BID 12/30/19 [History] Aspirin 81 mg PO DAILY 12/30/19 [History] metFORMIN HCL [metFORMIN HCL ER] 750 mg PO DAILY 12/30/19 [History] Thiamine [Vitamin B-1] 100 mg PO DAILY #30 tab 01/01/20 [Rx] Cholecalciferol [Vitamin D3 (25 Mcg = 1000 Iu)] 50 mcg PO DAILY 10/16/20 [History] Magnesium Oxide [Mag-Ox] 400 mg PO DAILY 10/16/20 [History] Metoprolol Succinate (ER) [Toprol XL] 50 mg PO HS 10/16/20 [History] Multivitamins, Thera [Multivitamin (formulary)] 1 tab PO DAILY 10/16/20 [History] Simvastatin [Zocor] 10 mg PO HS 10/16/20 [History] Omeprazole [PriLOSEC] 40 mg PO [id number] #14 capsule. 10/17/20 [Rx] Follow up Appointment(s)/Referral(s): Jaylan Islas MD [STAFF PHYSICIAN] - 1 Week Rubia Martinez DO [Primary Care Provider] - 3 Days
--- NOTE | 2020-10-17 10:02 | P.CRDCN ---
History of Present Illness History of present illness: HISTORY OF PRESENTING ILLNESS This is a pleasant 60-year-old male past medical history significant for coronary artery disease s/p PCI proximal LAD 2017, paroxysmal atrial fibrillation/atrial tachycardia s/p ablation 12/2019, ischemic cardiomyopathy improved after PCI, hypertension, dyslipidemia, diabetes mellitus, former nicotine dependence and history of daily alcohol use. He follows in the office with Dr. Islas. We have been asked to see in consultation for chest pain. He states for the past 3 years he has been experiencing a headache, throat tightness and chest tightness intermittently. He states Tuesday when he was eating he felt like he was having a difficult time swallowing and that the food was stuck. He immediately had a headache and started having chest tightness. He also experiences intermittent palpitations. Last night while on telemetry he was noted have a rapid heart rate. EKG captured at the time revealed tachycardia heart rate in the 150's with regular P waves and QRS complexes that could have been either atrial tachycardia or underlying atrial flutter. Difficult to discern at this rate. He was initiated on cardizem and heart rates normalized. No evidence of atrial fibrillation. Currently in he resting comfortably in sinus mechanism with rates in the 50's. Initial EKG on arrival was sinus with left bundle branch block. Chest xray negative for an acute cardiopulmonary process. Laboratory data reviewed, CBC unremarkable, d-dimer less than 0.17, sodium 138, potassium 4.3, creatinine 0.75, magnesium 2.1 and cardiac enzymes negative 3. Current daily cardiac medications include Eliquis 5 mg daily, aspirin 81 mg daily, lisinopril/hydrochlorothiazide 20/25 mg daily, Toprol 50 mg daily and simvastatin 10 mg at bedtime. He underwent catheterization in 2019 revealing mild in-stent restenosis of the previously stented proximal LAD and diffuse disease of the small diagonal branch. Medical therapy recommended at that time. He has been seen also in consultation by GI and they have added protonix and are considering possible EGD. REVIEW OF SYSTEMS At the time of my exam: CONSTITUTIONAL: Denies fever or chills. CARDIOVASCULAR: Denies chest pain, shortness of breath, orthopnea, PND or palpitations. RESPIRATORY: Denies cough. GASTROINTESTINAL: Denies abdominal pain, diarrhea, constipation, nausea or vomiting. MUSCULOSKELETAL: Denies myalgias. NEUROLOGIC: Denies numbness, tingling, headacbe or weakness. ENDOCRINE: Denies fatigue, weight change, polydipsia or polyurina. GENITOURINARY: Denies burning, hematuria or urgency with micturation. HEMATOLOGIC: Denies history of anemia or bleeding. PHYSICAL EXAMINATION Blood pressure 108/62 heart rate 57 afebrile and maintaining oxygen saturation on room air. CONSTITUTIONAL: No apparent distress. HEENT: Head is normocephalic. Pupils are equal, round. Sclerae anicteric. Mucous membranes of the mouth are moist. No JVD. No carotid bruit. CHEST EXAMINATION: Lungs are clear to auscultation. No chest wall tenderness is noted on palpation or with deep breathing. HEART EXAMINATION: Regular rate and rhythm. S1, S2 heard. No murmurs, gallops or rub. ABDOMEN: Soft, nontender. Positive bowel sounds. EXTREMITIES: 2+ peripheral pulses, no lower extremity edema and no calf tenderness. NEUROLOGIC EXAMINATION: Patient is awake, alert and oriented x3. ASSESSMENT Chest pain, possible unstable angina Paroxysmal atrial fibrillation on eliquis, currently in SR Atrial tachycardia Hypertension Dyslipidemia Diabetes mellitus Former daily alcohol use Former nicotine dependence PLAN An acute coronary event has been ruled out. Obtain 2D echocardiogram and doppler study to assess cardiac structure and function. Perform Lexiscan stress test to assess for reversibility. Discussed his reoccurrence of atrial tachycardia with Dr. Islas, he will review these EKG's. Further recommendations to follow based on clinical course. Thank you kindly for this consultation. Nurse Practitioner note has been reviewed, I agree with a documented findings and plan of care. Patient was seen and examined. 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 Past Anesthesia/Blood Transfusion Reactions: No Reported Reaction Date of Last Stent Placement:: 10/2017 Past Psychological History: No Psychological Hx Reported Smoking Status: Former smoker Past Alcohol Use History: None Reported, Daily Past Drug Use History: None Reported - Past Family History Father Family Medical History: Coronary Artery Disease (CAD), Hyperlipidemia, Hypert ension Additional Family Medical History / Comment(s): CABG Mother Family Medical History: Coronary Artery Disease (CAD), CVA/TIA, Diabetes [place] itus, Hyperlipidemia, Hypertension, Myocardial Infarction ([place]) Additional Family Medical History / Comment(s): 7 stents Brother(s) Family Medical History: Diabetes Mellitus Additional Family Medical History / Comment(s): CABG Sister(s) Family Medical History: Coronary Artery Disease (CAD) Additional Family Medical History / Comment(s): CABG and valve Medications and Allergies Home Medications Medication Instructions Recorded Confirmed Type Lisinopril-Hctz 20-25 mg 1 tab PO DAILY 10/09/17 10/16/20 History [Zestoretic 20-25] Nitroglycerin Sl Tabs [Nitrostat] 0.4 mg SUBLINGUAL Q5M PRN tab 10/12/17 Rx Apixaban [Eliquis] 5 mg PO BID 12/30/19 10/16/20 History Aspirin 81 mg PO DAILY 12/30/19 10/16/20 History metFORMIN HCL [metFORMIN HCL ER] 750 mg PO DAILY 12/30/19 10/16/20 History Thiamine [Vitamin B-1] 100 mg PO DAILY #30 tab 01/01/20 10/16/20 Rx Cholecalciferol [Vitamin D3 (25 50 mcg PO DAILY 10/16/20 10/16/20 History Mcg = 1000 Iu)] Magnesium Oxide [Mag-Ox] 400 mg PO DAILY 10/16/20 10/16/20 History Metoprolol Succinate (ER) [Toprol 50 mg PO HS 10/16/20 10/16/20 History XL] Multivitamins, Thera [Multivitamin 1 tab PO DAILY 10/16/20 10/16/20 History (formulary)] Simvastatin [Zocor] 10 mg PO HS 10/16/20 10/16/20 History Fluconazole [Diflucan] 100 mg PO DAILY #3 tab 10/17/20 Rx Omeprazole [PriLOSEC] 40 mg PO [id number] #14 capsule. 10/17/20 Rx Allergies Allergy/AdvReac Type Severity Reaction Status Date / Time Sulfa (Sulfonamide Allergy Rash/Hives, Verified 10/16/20 10:51 Antibiotics) Blood in urine Physical Exam Vitals: Vital Signs Temp Pulse Pulse Resp BP BP BP 10/17/20 03:00 57 L 16 108/62 10/16/20 23:01 60 16 91/51 10/16/20 20:00 98.2 F 60 16 92/54 10/16/20 18:00 134 H 16 117/73 10/16/20 17:36 133 H 99/67 10/16/20 17:30 143 H 113/79 10/16/20 15:36 98.1 F 143 H 16 143/85 10/16/20 14:50 98 F 60 18 130/69 10/16/20 14:20 60 18 130/69 10/16/20 14:00 143 H 16 10/16/20 09:59 98 F 80 18 132/73 Pulse Ox 10/17/20 03:00 97 10/16/20 23:01 98 10/16/20 20:00 98 10/16/20 18:00 96 10/16/20 17:36 10/16/20 17:30 10/16/20 15:36 98 10/16/20 14:50 99 10/16/20 14:20 99 10/16/20 14:00 10/16/20 09:59 99 Intake and Output 10/16/20 10/17/20 10/17/20 22:59 06:59 14:59 Intake Total 16.5 Balance 16.5 Intake: Intake, IV Titration 16.5 Amount Diltiazem 125 mg In 16.5 Sodium Chloride 0.9% 100 ml @ 15 MG/HR 15 mls/hr IV .Q8H20M [facility] Rx#: [id number] Other: Voiding Method Toilet # Voids 1 1 Weight 90.4 kg Results 10/16/20 10:37 10/16/20 10:37 Cardiac Enzymes 10/16/20 10/16/20 10/16/20 Range/Units 10:37 10:37 13:28 AST 22 (17-59) U/L Troponin I <0.012 <0.012 (0.000-0.034) ng/mL 10/16/20 Range/Units 16:28 AST (17-59) U/L Troponin I <0.012 (0.000-0.034) ng/mL Coagulation 10/16/20 Range/Units 10:37 PT 11.0 (9.0-12.0) sec APTT 27.2 (22.0-30.0) sec Lipids 10/16/20 Range/Units 10:37 Triglycerides 77 (<150) mg/dL Cholesterol 124 (<200) mg/dL HDL Cholesterol 38 L (40-60) mg/dL CBC 10/16/20 Range/Units 10:37 WBC 7.3 (3.8-10.6) k/uL RBC 4.71 (4.30-5.90) m/uL Hgb 14.5 (13.0-17.5) gm/dL Hct 41.9 (39.0-53.0) % Plt Count 175 (150-450) k/uL Comprehensive Metabolic Panel 10/16/20 Range/Units 10:37 Sodium 138 (137-145) mmol/L Potassium 4.3 (3.5-5.1) mmol/L Chloride 104 (98-107) mmol/L Carbon Dioxide 24 (22-30) mmol/L BUN 15 (9-20) mg/dL Creatinine 0.75 (0.66-1.25) mg/dL Glucose 99 (74-99) mg/dL Calcium 10.1 (8.4-10.2) mg/dL AST 22 (17-59) U/L ALT 17 (4-49) U/L Alkaline Phosphatase 60 (38-126) U/L Total Protein 7.3 (6.3-8.2) g/dL Albumin 4.6 (3.5-5.0) g/dL Current Medications Generic Name Dose Route Start Last Admin Trade Name Freq PRN Reason Stop Dose Admin Acetaminophen 650 mg 10/16/20 19:58 10/16/20 20:04 Acetaminophen Tab 325 Mg Tab PO 650 mg Q6HR PRN Administration Fever and/ or Pain Aspirin 325 mg 10/17/20 09:00 Aspirin 325 Mg Tab PO DAILY [facility] Atorvastatin Calcium 10 mg 10/16/20 21:00 10/16/20 20:05 Atorvastatin 10 Mg Tab PO 10 mg HS LAUREANO Administration Cholecalciferol 50 mcg 10/17/20 09:00 Cholecalciferol 25 Mcg (1000 Iu) Tablet PO DAILY [facility] Lisinopril/HCTZ 1 each 10/17/20 09:00 Lisinopril-Hctz 20-25 Mg 1 Each Tab PO DAILY [facility] Diltiazem HCl 125 mg/ Sodium 125 mls @ 15 mls/hr 10/16/20 17:00 10/17/20 02:37 Chloride IV Not Given .Q8H20M LAUREANO 15 MG/HR Fluconazole/Sodium Chloride 50 mls @ 50 mls/hr 10/17/20 20:00 100 mg/ IV Solution IVPB Q24H [facility] Insulin Aspart 0 unit 10/16/20 17:30 10/17/20 06:19 Insulin Aspart (Novolog) 100 Unit/Ml Vial SQ Not Given ACHS [facility] Protocol Magnesium Oxide 400 mg 10/17/20 09:00 Magnesium Oxide 400 Mg Tab PO DAILY [facility] Metoprolol Succinate 50 mg 10/16/20 21:00 10/16/20 16:07 Metoprolol Succinate (Er) 50 Mg Tab.Er.24h PO 50 mg HS [facility] Administration Multivitamins 1 each 10/17/20 09:00 Multivitamins, Thera 1 Each Tab PO DAILY [facility] Nitroglycerin 1 inch 10/16/20 18:00 10/17/20 05:06 Nitroglycerin Oint 1 Inch/Gm Packet TOPICAL Not Given Q6HR [facility] Nitroglycerin 0.4 mg 10/16/20 13:45 Nitroglycerin Sl Tabs 0.4 Mg Tab SUBLINGUAL Q5M PRN Chest Pain Pantoprazole Sodium 40 mg 10/16/20 13:00 10/16/20 20:05 Pantoprazole 40 Mg/10 Ml Vial IVP 40 mg BID [facility] Administration Thiamine HCl 100 mg 10/17/20 09:00 Thiamine 100 Mg Tab PO DAILY [facility] Intake and Output 10/16/20 10/17/20 10/17/20 22:59 06:59 14:59 Intake Total 16.5 Balance 16.5 Intake: Intake, IV Titration 16.5 Amount Diltiazem 125 mg In 16.5 Sodium Chloride 0.9% 100 ml @ 15 MG/HR 15 mls/hr IV .Q8H20M [facility] Rx#: [id number] Other: Voiding Method Toilet # Voids 1 1 Weight 90.4 kg 10/16/20 10:37 10/16/20 10:37
[2020-10-17 11:40] LABS: Glucose,Whole Blood 99 mg/dL (75-99)
--- NOTE | 2020-10-17 11:48 | NM ---
EXAMINATION TYPE: NM stress lexiscan cardiolite DATE OF EXAM: 10/17/2020 COMPARISON: NONE HISTORY: Chest pain TECHNIQUE: After the intravenous administration of 10 mCi Tc 99m Sestamibi - Cardiolite resting SPEC T images acquired 60 minutes post injection. The patient received 0.4mg Lexiscan, 25.9 mCi Tc 99m Sestamibi - Stress images obtained [address] injection FINDINGS: Review of stress and rest SPECT images demonstrates no distinct perfusion abnormality. Gated analysi s shows normal wall motion with an estimated left ventricular ejection fraction of 54 %. TID 1.01 IMPRESSION: 1. No scintigraphic evidence for reversible ischemia. 2. Ejection fraction 54%.
--- NOTE | 2020-10-17 11:51 | ECHOF ---
Referral Reason: MEASUREMENTS -------- HEIGHT: 177.8 cm WEIGHT: 90.7 kg BP: 141/71 RVIDd: 3.1 cm (< 3.3) IVSd: 1.3 cm (0.6 - 1.1) LVIDd: 4.5 cm (3.9 - 5.3) LVPWd: 1.2 cm (0.6 - 1.1) IVSs: 1.7 cm LVIDs: 2.9 cm LVPWs: 1.8 cm LA Diam: 3.6 cm (2.7 - 3.8) LAESV Index (A-L): 21.86 ml/m Ao Diam: 3.2 cm (2.0 - 3.7) AV Cusp: 2.3 cm (1.5 - 2.6) MV EXCURSION: 14.924 mm (> 18.000) MV EF SLOPE: 63 mm/s (70 - 150) EPSS: 0.7 cm MV E Adan: 0.76 m/s MV DecT: 239 ms MV A Adan: 0.79 m/s MV E/A Ratio: 0.97 RAP: 5.00 mmHg RVSP: 26.52 mmHg FINDINGS -------- Sinus rhythm. This was a technically adequate study. The left ventricular size is normal. There is mild concentric left ventricular hypertrophy. Overa ll left ventricular systolic function is normal with, an EF between 60 - 65 %. The right ventricle is normal in size. Normal LA size by volume 22+/-6 ml/m2. The right atrium is normal in size. Interatrial and interventricular septum intact. The aortic valve is trileaflet, and appears structurally normal. No aortic stenosis or regurgitation. The mitral valve is normal. Mild tricuspid regurgitation present. Right ventricular systolic pressure is normal at < 35 mmHg. Trace/mild (physiologic) pulmonic regurgitation. The aortic root size is normal. Normal inferior vena cava with normal inspiratory collapse consistent with estimated right atrial pre ssure of 5 mmHg. There is no pericardial effusion. CONCLUSIONS -------- 1. The left ventricular size is normal. 2. There is mild concentric left ventricular hypertrophy. 3. Overall left ventricular systolic function is normal with, an EF between 60 - 65 %. 4. Mild tricuspid regurgitation present. 5. Trace/mild (physiologic) pulmonic regurgitation. 6. There is no pericardial effusion. REFINING STILL OPERATOR: Lexis Saucedo RDCS
--- NOTE | 2020-10-17 12:05 | P.PN ---
Subjective Progress Note Date: 10/17/20 Principal diagnosis: Dysphagia This is a pleasant 60-year-old white male patient who presented to the emergency department with complaints of chest pain and pressure. He states he's had this pain and pressure for 3 years, radiates to his head as well her since he had his cardiac stent. He also stated during the last week he has had midsternal pain after eating and taking large drinks. He denies actual difficulty with swallowing food, or food getting stuck. He denies any history of peptic ulcer disease or acid reflux. Today he states he was started on a new inhaler shayan roximately 2 weeks ago and was noted yesterday by primary medicine that he had oral candidiasis. He has been started on IV Flagyl. He is scheduled to undergo Lexiscan stress test, which showed no reversible ischemia. He states his chest pain/pressure is improved from yesterday but still present. He denies any abdominal pain, nausea, or vomiting. Objective - Vital Signs Vital signs: Vital Signs Temp 98.2 F 10/16/20 20:00 Pulse 57 L 10/17/20 03:00 Resp 16 10/17/20 03:00 BP 108/62 10/17/20 03:00 Pulse Ox 97 10/17/20 03:00 Intake & Output 10/16/20 10/17/20 10/17/20 18:59 06:59 18:59 Intake Total 66.5 Balance 66.5 Weight 90.718 kg 90.4 kg Intake: Intake, IV Titration 16.5 Amount Diltiazem 125 mg In 16.5 Sodium Chloride 0.9% 100 ml @ 15 MG/HR 15 mls/hr IV .Q8H20M [facility] Rx#: [id number] Oral 50 Other: Voiding Method Toilet Toilet # Voids 1 - Exam General appearance: The patient is alert, oriented, appears in no acute distress. HET: Head is normocephalic and atraumatic. Conjunctiva pink. Sclera anicteric. Oral thrush. Neck: Supple without lymphadenopathy. Abdomen: Soft, nontender, nondistended with bowel sounds. No guarding or rigidity. Extremities: Normal skin color and turgor. No pedal edema Skin: No rashes, no jaundice Neurological: No focal deficits. Alert and oriented 3. - Labs CBC & Chem 7: 10/16/20 10:37 10/16/20 10:37 Labs: Abnormal Lab Results - Last 24 Hours (Table) 10/16/20 10/16/20 10/17/20 Range/Units 10:37 20:37 06:16 POC Glucose (mg/dL) 100 H 106 H (75-99) mg/dL HDL Cholesterol 38 L (40-60) mg/dL Assessment and Plan (1) Dysphagia Narrative/Plan: Pleasant 60-year-old male who presented to the hospital with complaints of chest pain and pressure. He has a prior history of coronary artery disease with stents and states he's had chest pressure for the last 3 years after his stents. He is also complaining of pain after swallowing that began approximately 1 week ago. He states it lasts for about 10-15 seconds in his chest and feels like it goes up his throat to his head. He states it's with larger bites as well as gulp of fluid. He denies any nausea, vomiting, or abdominal pain. No associated regurgitation. He has no past history of peptic ulcer disease or previous EGD. Currently does not take any medications for acid reflux. Consideration for possible inpatient or outpatient upper endoscopy, however at this time cardiology will need to see and clear patient. Current Visit: Yes Status: Acute Code(s): R13.10 - DYSPHAGIA, UNSPECIFIED SNOMED Code(s): 34633582 (2) History of coronary artery disease Current Visit: Yes Status: Acute Code(s): Z86.79 - PERSONAL HISTORY OF OTHER DISEASES OF THE CIRCULATORY SYSTEM SNOMED Code(s): 933918656 (3) History of atrial fibrillation Narrative/Plan: On Eliquis Current Visit: Yes Status: Acute Code(s): Z86.79 - PERSONAL HISTORY OF OTHER DISEASES OF THE CIRCULATORY SYSTEM SNOMED Code(s): 223500772 (4) Chest pain Narrative/Plan: Radiology is following patient closely. Echocardiogram stress test ordered Current Visit: Yes Status: Acute Code(s): R07.9 - CHEST PAIN, UNSPECIFIED SNOMED Code(s): 30603383 (5) Oral candidiasis Current Visit: Yes Status: Acute Code(s): B37.0 - CANDIDAL STOMATITIS SNOMED Code(s): 87529175 Plan: 1. Continue symptomatic and supportive care 2. Protonix 40 mg twice a day 3. Full liquid diet, NPO after midnight 4. Continue Flagyl as ordered 5. Await clearance by cardiology 6. Plan for EGD tomorrow morning Thank you for this consultation, we will continue to follow Dr. Flory Longo I agree with the dictator's note, documented as a scribe by Constanza George.
[2020-10-17] MEDS: MAGNESIUM OXIDE 400 MG TAB PO SCH (12:16)
[2020-10-17] MEDS: ASPIRIN 81 MG PO SCH (12:16)
[2020-10-17] MEDS: THIAMINE 100 MG TAB PO SCH (12:16)
[2020-10-17] MEDS: CHOLECALCIFEROL 25 MCG (1000 IU) TABLET PO SCH (12:16)
[2020-10-17] MEDS: PANTOPRAZOLE 40 MG/10 ML VIAL IVP SCH ×2 (12:17→20:44)
[2020-10-17] MEDS: LISINOPRIL-HCTZ 20-25 MG 1 EACH TAB PO SCH (12:17)
[2020-10-17] MEDS: MULTIVITAMINS, THERA 1 EACH TAB PO SCH (12:19)
[2020-10-17] MEDS ORDERED: METOPROLOL TARTRATE 25 MG TAB PO STA (12:24)
[2020-10-17 17:10] LABS: Glucose,Whole Blood 101 mg/dL (75-99)
[2020-10-17] MEDS ORDERED: FLUCONAZOLE IN NACL,ISO-OSM 100 MG in SALINE 1 50ML.BAG IVPB SCH (20:00)
[2020-10-17 20:09] LABS: Glucose,Whole Blood 129 mg/dL (75-99)
[2020-10-17] MEDS: METOPROLOL SUCCINATE (ER) 50 MG TAB.ER.24H PO SCH (20:11)
[2020-10-17] MEDS: ATORVASTATIN 10 MG TAB PO SCH (20:44)
[2020-10-18 00:10] VITALS: TEMP 97.8
[2020-10-18 06:02] LABS: Glucose,Whole Blood 111 mg/dL (75-99)
[2020-10-18] MEDS: INSULIN ASPART (NovoLOG) 100 UNIT/ML VIAL SQ SCH (06:31)
[2020-10-18] MEDS ORDERED: LIDOCAINE 1% INJ 10MG/ML (20 ML MDV) ONE (06:55)
[2020-10-18] MEDS ORDERED: PROPOFOL 10 MG/ML 20 ML VIAL IV ONE (06:55)
[2020-10-18] MEDS ORDERED: IV FLUID CONTINUATION 500 ML IV ONE (06:59)
[2020-10-18] MEDS ORDERED: LACTATED RINGERS 1,000 ML IV ONE (07:05)
[2020-10-18] MEDS ORDERED: SODIUM CHLORIDE 0.9% 500 ML 500 ML IV ONE (07:07)
--- NOTE | 2020-10-18 07:12 | P.PCN ---
Date of Procedure: 10/18/20 Procedure(s) Performed: BRIEF HISTORY: Patient is a 60-year-old, pleasant, white male scheduled for an upper endoscopy as a part of evaluation of epigastric pain, lower sternal chest pain worse with eating on and off for the last few weeks duration. He also has some chest pain radiating to his and had cardiac workup that was negative.. PROCEDURE PERFORMED: Esophagogastroduodenoscopy with biopsy. PREOPERATIVE DIAGNOSIS: Chest pain/epigastric pain. IV sedation per anesthesia. PROCEDURE: After informed consent was obtained, the patient was brought into the endoscopy unit. IV sedation was administered by Anesthesia under continuous monitoring. Initially the Olympus GIF-140 video endoscope was inserted into the mouth. Esophagus intubated without any difficulty. It was gradually advanced into the stomach and duodenum and carefully examined. The bulb and the second part of the duodenum appeared normal. The scope at this time was withdrawn to the stomach, adequately insufflated with air, and upon careful examination, mucosa of the antrum had diffuse areas of erythema WITH gastritis and biopsies were done from this area. The, body, cardia and the fundus appeared normal. The scope was then withdrawn into the esophagus. The GE junction was located at 39 cm from the incisors. Small sliding type hernia noted. The esophagus appeared normal. There were no erosions or ulcerations seen, multiple biopsies were done from mid and distal esophagus and the patient tolerated the procedure well. IMPRESSION: 1. Normal-appearing esophagus with no evidence of esophagitis, esophageal stricture. 2. Small hiatal hernia. 3. Mild antral gastritis RECOMMENDATIONS: The findings of this examination were discussed with the patient. Diet will be advanced as tolerated. Protonix will be continued at 40 mg twice daily. Await biopsy results. .
[2020-10-18 08:23] VITALS: BP 116/61; PULSE 66; RESP 18
[2020-10-18] MEDS: CHOLECALCIFEROL 25 MCG (1000 IU) TABLET PO SCH (08:31)
[2020-10-18] MEDS: MAGNESIUM OXIDE 400 MG TAB PO SCH (08:31)
[2020-10-18] MEDS: ASPIRIN 81 MG PO SCH (08:31)
[2020-10-18] MEDS: THIAMINE 100 MG TAB PO SCH (08:32)
[2020-10-18] MEDS: MULTIVITAMINS, THERA 1 EACH TAB PO SCH (08:37)
[2020-10-18] MEDS: LISINOPRIL-HCTZ 20-25 MG 1 EACH TAB PO SCH (08:37)
[2020-10-18] MEDS: PANTOPRAZOLE 40 MG/10 ML VIAL IVP SCH (08:38)
[2020-10-18] MEDS ORDERED: METOPROLOL TARTRATE 50 MG TAB PO SCH (09:00)
[2020-10-18] MEDS ORDERED: ATORVASTATIN 40 MG TAB PO SCH (09:00)
--- NOTE | 2020-10-18 09:02 | P.DS ---
Providers Date of admission: 10/16/20 12:21 Attending physician: Humera Evans Consults: 10/16/20 12:13 Consult Physician Urgent Consulting Provider: Aura Longo Consult Reason/Comments: Dysphagia Do you want consulting provider notified?: Yes 10/16/20 12:14 Consult Physician Urgent Consulting Provider: [facility] Consult Reason/Comments: Chest pain Do you want consulting provider notified?: Yes Primary care physician: Rubia [facility] Course: Patient is a pleasant 60-year-old male came in with complaints of chest pressure-like sensation moderate severity with possible radiation to the left arm with numbness in the left arm be started today lasted for about an hour without any diaphoresis, nausea followed by an episode of atrial fibrillation with a heart rate going up to 150 which improved within an hour as well. Patient denied any fever chills. Patient does have some rotator cuff problems in the left hand and patient does have some discomfort from that which is chronic although his numbness in the left arm is little different and has been present since morning. Patient denied any fever chills patient had a history of coronary artery disease with stents about 3 years ago. Patient was also complaining of symptoms of swallowing difficulties and spasm whenever he eats and not exactly odynophagia. Patient did have lightheadedness after an episode of A. fib. 10/17/2020 patient oral thrush is better and patient admits using a steroid inhaler on experimental basis. He is not sure as he didn't eat anything since yesterday regarding his odynophagia. Patient will undergo stress test if that's negative patient most probably will be discharged patient had episode of atrial tachycardia arrest ventricular tachycardia which resolved with the Cardizem Cardizem was discontinued patient probably will need to follow with electrophysiology as an outpatient. 10/18/2020 Patient underwent upper GI endoscopy and the patient has esophagitis and gastritis. Patient will be discharged on Protonix twice a day cleared by cardiology and the gastroneurologySarai Gong patient follows he becomes tachycardic. Patient will be started on soft diet and will monitor his heart rate on telemetry if that's okay patient will be discharged today PHYSICAL EXAMINATION: GENERAL: The patient is alert and oriented x3, not in any acute distress. Well developed, well nourished. HEENT: Pupils are round and equally reacting to light. EOMI. No scleral icterus. No conjunctival pallor. Normocephalic, atraumatic. No pharyngeal erythema. No thyromegaly. CARDIOVASCULAR: S1 and S2 present. No murmurs, rubs, or gallops. PULMONARY: Chest is clear to auscultation, no wheezing or crackles. ABDOMEN: Soft, nontender, nondistended, normoactive bowel sounds. No palpable organomegaly. MUSCULOSKELETAL: No joint swelling or deformity. EXTREMITIES: No cyanosis, clubbing, or pedal edema. NEUROLOGICAL: Gross neurological examination did not reveal any focal deficits. SKIN: No rashes. Assessment and Plan Plan: -Chest pain:ruled out a acute coronary syndromes patient will be discharged today after the stress to sepsis if that's negative. -Esophageal spasm/odynophagia: Secondary to esophagitis and gastritis flucanazole be discontinued patient doesn't have candidal esophagitis on the endoscopy -History of coronary artery disease with stents in the past -Atrial fibrillation for which patient is on Eliquis. Patient had episodes of sinus tachycardia or atrial tachycardia during this hospitalization presently sinus rhythm rate controlled. Patient will follow up with the electrophysiology as an outpatient -Hyperlipidemia -Hypertension -Type 2 diabetes mellitus Plan - Discharge Summary Discharge Rx Participant: No New Discharge Prescriptions: New Pantoprazole Sodium [Protonix] 40 mg PO BID #30 tablet.dr Yang Lisinopril-Hctz 20-25 mg [Zestoretic 20-25] 1 tab PO DAILY Nitroglycerin Sl Tabs [Nitrostat] 0.4 mg SUBLINGUAL Q5M PRN tab PRN Reason: Chest Pain Apixaban [Eliquis] 5 mg PO BID Aspirin 81 mg PO DAILY metFORMIN HCL [metFORMIN HCL ER] 750 mg PO DAILY Thiamine [Vitamin B-1] 100 mg PO DAILY #30 tab Magnesium Oxide [Mag-Ox] 400 mg PO DAILY Simvastatin [Zocor] 10 mg PO HS Metoprolol Succinate (ER) [Toprol XL] 50 mg PO HS Multivitamins, Thera [Multivitamin (formulary)] 1 tab PO DAILY Cholecalciferol [Vitamin D3 (25 Mcg = 1000 Iu)] 50 mcg PO DAILY Discharge Medication List Lisinopril-Hctz 20-25 mg [Zestoretic 20-25] 1 tab PO DAILY 10/09/17 [History] Nitroglycerin Sl Tabs [Nitrostat] 0.4 mg SUBLINGUAL Q5M PRN tab 10/12/17 [Rx] Apixaban [Eliquis] 5 mg PO BID 12/30/19 [History] Aspirin 81 mg PO DAILY 12/30/19 [History] metFORMIN HCL [metFORMIN HCL ER] 750 mg PO DAILY 12/30/19 [History] Thiamine [Vitamin B-1] 100 mg PO DAILY #30 tab 01/01/20 [Rx] Cholecalciferol [Vitamin D3 (25 Mcg = 1000 Iu)] 50 mcg PO DAILY 10/16/20 [History] Magnesium Oxide [Mag-Ox] 400 mg PO DAILY 10/16/20 [History] Metoprolol Succinate (ER) [Toprol XL] 50 mg PO HS 10/16/20 [History] Multivitamins, Thera [Multivitamin (formulary)] 1 tab PO DAILY 10/16/20 [History] Simvastatin [Zocor] 10 mg PO HS 10/16/20 [History] Pantoprazole Sodium [Protonix] 40 mg PO BID #30 tablet. 10/18/20 [Rx] Follow up Appointment(s)/Referral(s): Jaylan Islas MD [STAFF PHYSICIAN] - 2 Weeks (The office will call you with appointment date and time.) Rubia Martinez DO [Primary Care Provider] - 3 Days Discharge Disposition: HOME SELF-CARE
--- NOTE | 2020-10-18 09:21 | PN ---
PROGRESS NOTE Mr. Blood is in sinus rhythm today. Yesterday, he went in and out of atrial flutter with a 2 as to 1 conduction or atrial tachycardia, but he is in sinus rhythm today, comfortable. He is anticoagulated. I am recommending that we switch him from metoprolol succinate to tartrate 50 mg in the morning, 25 mg in the evening. He is going for EGD today. He had a Lexiscan stress test which was negative for ischemia and ejection fraction was well preserved. Vital signs are stable. Heart rate is about 70, sinus. No JVD. S1-S2 heard normally. Short systolic murmur is audible. Lungs are clear. Abdomen is soft, nontender. Lower extremities reveal normal pulses. No edema. Central nervous system normal. IMPRESSION: 1. Paroxysmal supraventricular tachycardia/PAT/atrial flutter, now in sinus. 2. Coronary artery disease, previous LAD PCI, negative Lexiscan stress test. 3. History of some dysphagia, being investigated further by endoscopy. RECOMMENDATIONS: We will switch him from metoprolol succinate to tartrate. Increase activity. Possible discharge once cleared by GI and see Dr. Islas in 2 weeks. MMODL / IJN: [id number] /
[2020-10-18] MEDS ORDERED: METOPROLOL TARTRATE 25 MG TAB PO SCH (21:00)
--- NOTE | 2020-10-21 11:13 | P.STRESS ---
- Stress Test Note Stress Test Results/Findings: Exam Performed: NM stress lexiscan cardiolite Exam Date: 10/17/20 Reason for Exam: CP Height: 5 ft 10 in Weight: 89.9 kg Protocol: LEXISCAN CARDIOLITE Stage: NA Duration of Exercise: NA Resting Heart Rate: 71 Resting Blood Pressure: 141/71 Maximum Achieved Heart Rate: 87 Maximum Achieved Blood Pressure: 141/71 85% PMHR: 134 100% PMHR: 158 METS: NA Technologist Comment: Stress Test Results/Findings: This is a 60-year-old gentleman with history of hypertension, diabetes and hypercholesterolemia and also smoking history. Being evaluated for symptoms of chest pain. Stress data: Baseline EKG showed sinus rhythm with evidence of left bundle branch block. Blood pressure at rest was 140/70 with pulse rate of 71. Chest and was of Lexiscan was infused. EKG did not reveal any changes from the baseline. Final impression: #1. Inconclusive Lexiscan stress test because of baseline EKG changes #2. Report on the nuclear portion of the test to be provided by the radiologist
== END 2020-10-18 10:45 | disposition home or self-care (01) ==
LOC: EC 09:57 → 6NMEDSUR 12:21 → 3SCARD 17:54
PROVIDERS: ADMIT Internal Medicine; ATTEND Internal Medicine
DX: R07.89 Other chest pain (principal); K29.50 Unspecified chronic gastritis without bleeding; K20.90 Esophagitis, unspecified without bleeding; B37.0 Candidal stomatitis; R51.9 Headache, unspecified; R06.02 Shortness of breath; R20.0 Anesthesia of skin; G89.29 Other chronic pain; M79.642 Pain in left hand; I25.10 Atherosclerotic heart disease of native coronary artery without angina pectoris; I48.0 Paroxysmal atrial fibrillation; I47.1 Supraventricular tachycardia; I47.2 Ventricular tachycardia; E11.9 Type 2 diabetes mellitus without complications; I10 Essential (primary) hypertension; E78.5 Hyperlipidemia, unspecified; I25.5 Ischemic cardiomyopathy; E78.00 Pure hypercholesterolemia, unspecified; I48.92 Unspecified atrial flutter; I44.7 Left bundle-branch block, unspecified; R01.1 Cardiac murmur, unspecified; K44.9 Diaphragmatic hernia without obstruction or gangrene; R00.2 Palpitations; T82.855A Stenosis of coronary artery stent, initial encounter; Y83.1 Surgical operation with implant of artificial internal device as the cause of abnormal reaction of the patient, or of later complication, without mention of misadventure at the time of the procedure; Z95.5 Presence of coronary angioplasty implant and graft; Z87.891 Personal history of nicotine dependence; Z79.01 Long term (current) use of anticoagulants; Z79.82 Long term (current) use of aspirin; Z79.84 Long term (current) use of oral hypoglycemic drugs; Z79.899 Other long term (current) drug therapy; Z88.2 Allergy status to sulfonamides; Z20.822 Contact with and (suspected) exposure to COVID-19; Z82.49 Family history of ischemic heart disease and other diseases of the circulatory system; Z83.3 Family history of diabetes mellitus; Z82.3 Family history of stroke
CPT/HCPCS: 96376 ×3; 96365; 96375; 96367; 93005 ×3; 99285; 36415; 93017; 93306; 85379; 88305; 80061; 80053; 83735; 84484; 85025; 85610; 85730; 87635; 71046; 78452; 43239; G0378 ×4; A9500; J2001; J1450 ×2; J2785; J2704; C9113 ×3

== ENCOUNTER 2020-12-10 12:32 | Inpatient (IN) | payer BC ==
[2020-12-10] MEDS ORDERED: ASPIRIN 81 MG PO STA (12:55)
[2020-12-10] MEDS ORDERED: DILTIAZEM DRIP BOLUS FROM BAG 1 MG SOLN IV ONE (12:55)
--- NOTE | 2020-12-10 13:06 | ED ---
General Adult HPI - General Chief complaint: Arrhythmia/Palpitations Stated complaint: Chest pain Time Seen by Provider: 12/10/20 12:39 Source: patient, RN notes reviewed Mode of arrival: ambulatory Limitations: no limitations - History of Present Illness Initial comments: Patient is a pleasant 60-year-old male presenting to the emergency department with palpitations. Patient has noticed several times over the past week his heart rate is becoming elevated. Patient is able to feel this. When he checks his heart rate has been elevated as well. Patient has had some mild tightness in his chest. There has been some questionable minimal dyspnea. No nausea. No diaphoresis. Patient does have history of atrial fibrillation and is on Eliquis. No leg pain or leg swelling. - Related Data Home Medications Medication Instructions Recorded Confirmed Lisinopril-Hctz 20-25 mg 1 tab PO DAILY 10/09/17 10/16/20 [Zestoretic 20-25] Apixaban [Eliquis] 5 mg PO BID 12/30/19 10/16/20 Aspirin 81 mg PO DAILY 12/30/19 10/16/20 metFORMIN HCL [metFORMIN HCL ER] 750 mg PO DAILY 12/30/19 10/16/20 Cholecalciferol [Vitamin D3 (25 50 mcg PO DAILY 10/16/20 10/16/20 Mcg = 1000 Iu)] Magnesium Oxide [Mag-Ox] 400 mg PO DAILY 10/16/20 10/16/20 Multivitamins, Thera [Multivitamin 1 tab PO DAILY 10/16/20 10/16/20 (formulary)] Simvastatin [Zocor] 10 mg PO HS 10/16/20 10/16/20 Previous Rx's Medication Instructions Recorded Nitroglycerin Sl Tabs [Nitrostat] 0.4 mg SUBLINGUAL Q5M PRN tab 10/12/17 Thiamine [Vitamin B-1] 100 mg PO DAILY #30 tab 01/01/20 Metoprolol Tartrate [Lopressor] 25 mg PO HS #20 tab 10/18/20 Metoprolol Tartrate [Lopressor] 50 mg PO DAILY #20 tab 10/18/20 Pantoprazole Sodium [Protonix] 40 mg PO BID #30 tablet. 10/18/20 Allergies Allergy/AdvReac Type Severity Reaction Status Date / Time Sulfa (Sulfonamide Allergy Rash/Hives, Verified 12/10/20 12:34 Antibiotics) Blood in urine Review of Systems ROS Statement: Those systems with pertinent positive or pertinent negative responses have been documented in the HPI. ROS Other: All systems not noted in ROS Statement are negative. Constitutional: Denies: fever Eyes: Denies: eye pain ENT: Denies: ear pain Respiratory: Reports: as per HPI Cardiovascular: Reports: as per HPI, chest pain, palpitations Endocrine: Denies: fatigue Gastrointestinal: Denies: abdominal pain Genitourinary: Denies: dysuria Musculoskeletal: Denies: back pain Skin: Denies: rash Neurological: Denies: weakness 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 Past Anesthesia/Blood Transfusion Reactions: No Reported Reaction Date of Last Stent Placement:: 10/2017 Past Psychological History: No Psychological Hx Reported Smoking Status: Former smoker Past Alcohol Use History: Occasional Past Drug Use History: None Reported - Past Family History Father Family Medical History: Coronary Artery Disease (CAD), Hyperlipidemia, Hypertension Additional Family Medical History / Comment(s): CABG Mother Family Medical History: Coronary Artery Disease (CAD), CVA/TIA, Diabetes Mellitus, Hyperlipidemia, Hypertension, Myocardial Infarction ([place]) Additional Family Medical History / Comment(s): 7 stents Brother(s) Family Medical History: Diabetes Mellitus Additional Family Medical History / Comment(s): CABG Sister(s) Family Medical History: Coronary Artery Disease (CAD) Additional Family Medical History / Comment(s): CABG and valve General Exam Limitations: no limitations General appearance: alert, in no apparent distress Head exam: Present: normocephalic Eye exam: Present: normal appearance Respiratory exam: Present: normal lung sounds bilaterally Cardiovascular Exam: Present: tachycardia, normal heart sounds Expanded Peripheral pulses: 2+: Radial (R), Radial (L), Posterior Tibialis (R), Posterior Tibialis (L) GI/Abdominal exam: Present: soft. Absent: tenderness Extremities exam: Present: normal inspection Neurological exam: Present: alert Psychiatric exam: Present: normal affect, normal mood Skin exam: Present: normal color Course Vital Signs 12/10/20 12/10/20 12/10/20 12:34 13:11 13:37 Temperature 97.8 F Pulse Rate 128 H 129 H 146 H Respiratory 18 18 18 Rate Blood Pressure 104/63 99/76 96/69 O2 Sat by Pulse 99 99 100 Oximetry 12/10/20 13:58 Temperature Pulse Rate 65 Respiratory 18 Rate Blood Pressure 103/62 O2 Sat by Pulse 100 Oximetry - Reevaluation(s) Reevaluation #1: 12/10/20 13:43 Repeat EKG shows irregular rhythm with a rate of 142. QRS 140. QT 278. QTC 427. Left axis. Left bundle branch block. No acute ST change. EKG Findings - EKG Comments: EKG Findings:: Regular rhythm tachycardia with a rate of 128. Left bundle branch block. AK 124. QRS 146. QT 368. QTC 537. Left axis. No acute ST change. Medical Decision Making - Medical Decision Making Patient reevaluated and resting comfortably in bed. Rhythm converted with 2.5 mg of Cardizem here patient and family updated on results and plan. Dr. Levy has been paged for admission of this patient. - Lab Data Result diagrams: 12/10/20 12:58 12/10/20 12:58 Lab Results 12/10/20 12/10/20 12/10/20 Range/Units 12:58 12:58 12:58 WBC 7.4 (3.8-10.6) k/uL RBC 4.92 (4.30-5.90) m/uL Hgb 14.7 (13.0-17.5) gm/dL Hct 43.3 (39.0-53.0) % MCV 88.1 (80.0-100.0) fL MCH 29.8 (25.0-35.0) pg MCHC 33.9 (31.0-37.0) g/dL RDW 13.1 (11.5-15.5) % Plt Count 201 (150-450) k/uL MPV 9.6 Neutrophils % 66 % Lymphocytes % 25 % Monocytes % 7 % Eosinophils % 1 % Basophils % 0 % Neutrophils # 4.9 (1.3-7.7) k/uL Lymphocytes # 1.9 (1.0-4.8) k/uL Monocytes # 0.5 (0-1.0) k/uL Eosinophils # 0.1 (0-0.7) k/uL Basophils # 0.0 (0-0.2) k/uL PT 12.0 (9.0-12.0) sec INR 1.1 (<1.2) APTT 27.7 (22.0-30.0) sec Sodium 134 L (137-145) mmol/L Potassium 4.4 (3.5-5.1) mmol/L Chloride 100 (98-107) mmol/L Carbon Dioxide 21 L (22-30) mmol/L Anion Gap 13 mmol/L BUN 17 (9-20) mg/dL Creatinine 0.89 (0.66-1.25) mg/dL Est GFR (CKD-EPI)AfAm >90 (>60 ml/min/1.73 sqM) Est GFR (CKD-EPI)NonAf >90 (>60 ml/min/1.73 sqM) Glucose 97 (74-99) mg/dL Calcium 10.2 (8.4-10.2) mg/dL Magnesium 1.8 (1.6-2.3) mg/dL Total Bilirubin 0.8 (0.2-1.3) mg/dL AST 27 (17-59) U/L ALT 16 (4-49) U/L Alkaline Phosphatase 51 (38-126) U/L Troponin I (0.000-0.034) ng/mL Total Protein 7.1 (6.3-8.2) g/dL Albumin 4.7 (3.5-5.0) g/dL TSH 2.040 (0.465-4.680) mIU/L Free T4 1.55 (0.78-2.19) ng/dL Free T3 pg/mL 3.4 (2.8-5.3) pg/ml 12/10/20 Range/Units 12:58 WBC (3.8-10.6) k/uL RBC (4.30-5.90) m/uL Hgb (13.0-17.5) gm/dL Hct (39.0-53.0) % MCV (80.0-100.0) fL MCH (25.0-35.0) pg MCHC (31.0-37.0) g/dL RDW (11.5-15.5) % Plt Count (150-450) k/uL MPV Neutrophils % % Lymphocytes % % Monocytes % % Eosinophils % % Basophils % % Neutrophils # (1.3-7.7) k/uL Lymphocytes # (1.0-4.8) k/uL Monocytes # (0-1.0) k/uL Eosinophils # (0-0.7) k/uL Basophils # (0-0.2) k/uL PT (9.0-12.0) sec INR (<1.2) APTT (22.0-30.0) sec Sodium (137-145) mmol/L Potassium (3.5-5.1) mmol/L Chloride (98-107) mmol/L Carbon Dioxide (22-30) mmol/L Anion Gap mmol/L BUN (9-20) mg/dL Creatinine (0.66-1.25) mg/dL Est GFR (CKD-EPI)AfAm (>60 ml/min/1.73 sqM) Est GFR (CKD-EPI)NonAf (>60 ml/min/1.73 sqM) Glucose (74-99) mg/dL Calcium (8.4-10.2) mg/dL Magnesium (1.6-2.3) mg/dL Total Bilirubin (0.2-1.3) mg/dL AST (17-59) U/L ALT (4-49) U/L Alkaline Phosphatase (38-126) U/L Troponin I <0.012 (0.000-0.034) ng/mL Total Protein (6.3-8.2) g/dL Albumin (3.5-5.0) g/dL TSH (0.465-4.680) mIU/L Free T4 (0.78-2.19) ng/dL Free T3 pg/mL (2.8-5.3) pg/ml - Radiology Data Radiology results: image reviewed (Chest x-ray reveals no acute process) Critical Care Time Critical Care Time: Yes Total Critical Care Time: 31 Disposition Clinical Impression: Atrial fibrillation with RVR, Chest pain Disposition: ADMITTED IP TO THIS HOSP Is patient prescribed a controlled substance at d/c from ED?: No Referrals: Gregg Fernandez MD [Primary Care Provider] - 1-2 days Decision Time: 14:10
[2020-12-10] MEDS ORDERED: DILTIAZEM 5 MG/ML 5 ML VIAL IV ONE (13:15)
[2020-12-10 13:21] LABS: Basophils % (A) 0 %; Eosinophils # (A) 0.1 k/uL (0-0.7); Eosinophils % (A) 1 %; HCT 43.3 % (39.0-53.0); HGB 14.7 gm/dL (13.0-17.5); Lymphocytes # (A) 1.9 k/uL (1.0-4.8); Lymphocytes % (A) 25 %; MCH 29.8 pg (25.0-35.0); MCHC 33.9 g/dL (31.0-37.0); MCV 88.1 fL (80.0-100.0); Mean Platelet Volume 9.6; Monocytes # (A) 0.5 k/uL (0-1.0); Monocytes % (A) 7 %; Neutrophils # (A) 4.9 k/uL (1.3-7.7); Neutrophils % (A) 66 %; Platelet Count 201 k/uL (150-450); RBC 4.92 m/uL (4.30-5.90); RDW 13.1 % (11.5-15.5); WBC 7.4 k/uL (3.8-10.6)
--- NOTE | 2020-12-10 13:32 | XR ---
EXAMINATION TYPE: XR chest 2V DATE OF EXAM: 12/10/2020 COMPARISON: 10/16/2020 HISTORY: Dysrhythmia TECHNIQUE: Frontal and lateral views of the chest are obtained. FINDINGS: Multiple overlying leads. Heart size is within normal limits. Atherosclerotic aorta. No pl eural effusion, focal consolidation or pneumothorax. Degenerative changes of the thoracic spine. IMPRESSION: 1. No acute pulmonary disease.
[2020-12-10 13:33] LABS: ALT 16 U/L (4-49); AST 27 U/L (17-59); African American GFR (CKD) >90 (>60 ml/min/1.73 sqM); Albumin 4.7 g/dL (3.5-5.0); Alkaline Phosphatase 51 U/L (38-126); Anion Gap 13 mmol/L; Blood Urea Nitrogen 17 mg/dL (9-20); Calcium 10.2 mg/dL (8.4-10.2); Carbon Dioxide 21 mmol/L (22-30); Chloride 100 mmol/L (98-107); Glucose 97 mg/dL (74-99); Magnesium 1.8 mg/dL (1.6-2.3); Non-African American GFR(CKD) >90 (>60 ml/min/1.73 sqM); Potassium 4.4 mmol/L (3.5-5.1); Sodium 134 mmol/L (137-145); Total Bilirubin 0.8 mg/dL (0.2-1.3); Total Protein 7.1 g/dL (6.3-8.2)
[2020-12-10 13:34] LABS: INR 1.1 (<1.2); Partial Thromboplastin Time 27.7 sec (22.0-30.0)
[2020-12-10 13:49] LABS: T4, Free (Free Thyroxine) 1.55 ng/dL (0.78-2.19)
[2020-12-10] MEDS ORDERED: NITROGLYCERIN SL TABS 0.4 MG TAB SUBLINGUAL PRN (14:11)
[2020-12-10] MEDS ORDERED: NON FORMULARY DRUG (Ubidecarenone [Co Q-10] 100 MG Capsule) PO SCH (23:00)
[2020-12-10] MEDS: ATORVASTATIN 10 MG TAB PO SCH (23:38)
[2020-12-10] MEDS: APIXABAN 5 MG TAB PO SCH (23:38)
[2020-12-10] MEDS: METOPROLOL TARTRATE 25 MG TAB PO SCH (23:39)
[2020-12-11] MEDS ORDERED: ASPIRIN 325 MG TAB PO SCH (09:00)
[2020-12-11] MEDS: DILTIAZEM 125 MG in SODIUM CHLORIDE 0.9% 100 ML IV SCH ×2 (09:13→20:27)
[2020-12-11] MEDS ORDERED: DILTIAZEM DRIP BOLUS FROM BAG 1 MG SOLN IV ONE (09:15)
[2020-12-11] MEDS: METOPROLOL TARTRATE 50 MG TAB PO SCH (09:27)
[2020-12-11] MEDS: APIXABAN 5 MG TAB PO SCH ×2 (09:27→20:28)
[2020-12-11] MEDS: FLECAINIDE 50 MG TAB PO SCH ×2 (09:35→20:28)
--- NOTE | 2020-12-11 09:54 | P.CRDCN ---
History of Present Illness History of present illness: HISTORY OF PRESENTING ILLNESS This is a pleasant 60-year-old male past medical history significant for coronary artery disease s/p PCI proximal LAD 2017, paroxysmal atrial fibrillation/atrial tachycardia s/p ablation 12/2019, ischemic cardiomyopathy improved after PCI, hypertension, dyslipidemia, diabetes mellitus, former nicotine dependence, mild gastritis. He follows in the office with Dr. Islas. We have been asked to see in consultation for palpitations and atrial fibrilla tion with rapid ventricular response. He's been noticing that over the past week his heart rate has becoming elevated and also has had some chronic chest heaviness and tightness. He states for the past 3 years he has been experiencing a headache, throat tightness and chest tightness intermittently. He states this usually happens when he eats. He states even when he coughs and he takes any bites of food he continues to get these symptoms of palpitations, heart rate elevation and chest tightness. In the emergency department they had difficulty capturing his atrial fibrillation with rapid ventricular response. EKG captured revealed tachycardia heart rate in the 120s with regular P waves and QRS complexes that could have appears to be atrial tachycardia. He was given 2.5 mg of IV Cardizem. He converted back to normal sinus rhythm, heart rate 60s, with a left bundle branch block. Patient was recently admitted in October 2020 with similar symptoms. He underwent Lexiscan stress test which was unremarkable and he also underwent Echocardiogram which revealed an EF of 60-65%, mild tricuspid regurgitation. At that time he was started on Cardizem and his heart rates normalized. There is no evidence of atrial fibrillation at that time. He has been seen also in consultation by GI and they have added protonix and underwent EGD on 10/18/2020 which revealed mild gastritis, small hiatal hernia. This morning patient seen and examined at bedside, no acute distress. Overnight patient was in sinus mechanism heart rate 55- 60s, no evidence of atrial fibrillation. His blood pressures are stable. He's currently being maintained on metoprolol 25 mg nightly, metoprolol tartrate 50 mg daily, Eliquis 5 mg twice a day, lisinoprilhydrochlorothiazide 2012 0.5 mg daily DIAGNOSTICS Chest x-ray with no acute cardiopulmonary process. Current daily cardiac medications include Eliquis 5 mg daily, aspirin 81 mg daily, lisinopril/hydrochlorothiazide 20/25 mg daily, metoprolol tartrate 50 mg daily and metoprolol tartrate 25mg nightly and simvastatin 10 mg at bedtime. He underwent catheterization in 2019 revealing mild in-stent restenosis of the previously stented proximal LAD and diffuse disease of the small diagonal branch. Medical therapy recommended at that time. Telemetry data reviewed CBC unremarkable, troponin negative 3, TSH within normal limits, sodium 134, potassium 4.4, BUN 17, serum creatinine 0.89, magnesium 1.8, COVID-19 negative REVIEW OF SYSTEMS At the time of my exam: CONSTITUTIONAL: Denies fever or chills. CARDIOVASCULAR: +Palpitations. Denies chest pain, shortness of breath, orthopnea, PND or palpitations. RESPIRATORY: Denies cough. GASTROINTESTINAL: Denies abdominal pain, diarrhea, constipation, nausea or vomiting. MUSCULOSKELETAL: Denies myalgias. NEUROLOGIC: Denies numbness, tingling, headacbe or weakness. ENDOCRINE: Denies fatigue, weight change, polydipsia or polyurina. GENITOURINARY: Denies burning, hematuria or urgency with micturation. HEMATOLOGIC: Denies history of anemia or bleeding. PHYSICAL EXAMINATION Blood pressure 120/67 heart rate 60 afebrile and maintaining oxygen saturation on room air. CONSTITUTIONAL: No apparent distress. HEENT: Head is normocephalic. Pupils are equal, round. Sclerae anicteric. Mucous membranes of the mouth are moist. No JVD. No carotid bruit. CHEST EXAMINATION: Lungs are clear to auscultation. No chest wall tenderness is noted on palpation or with deep breathing. HEART EXAMINATION: Regular rate and rhythm. S1, S2 heard. No murmurs, gallops or rub. ABDOMEN: Soft, nontender. Positive bowel sounds. EXTREMITIES: 2+ peripheral pulses, no lower extremity edema and no calf tenderness. NEUROLOGIC EXAMINATION: Patient is awake, alert and oriented x3. ASSESSMENT Chest pain, atypical acute coronary syndrome has been ruled out. Recent negative Lexiscan stress test on 10/17/20 Paroxysmal atrial fibrillation on eliquis, status post ablation in 12/2019 Atrial tachycardia Coronary artery disease status post PCI to proximal LAD in 2018 History of ischemic cardiomyopathy improved after PCI Hypertension Dyslipidemia Diabetes mellitus Former daily alcohol use Former nicotine dependence Mild Gastritis PLAN An acute coronary event has been ruled out. Discussed his reoccurrence of atrial tachycardia with Dr. Islas. Patient started On Flecainide 50mg BID This morning, after rounding on the patient, we were alerted that patient went into HR 160-190s. Patient appears to be in atrial tachycardia, heart rate in the 130-140s. We will give IV cardizem 10mg bolus and start on Cardizem drip Patient will be transferred to 3S cardiac unit for further management of care. Further recommendations to follow based on clinical course. Nurse Practitioner note has been reviewed, I agree with a documented findings and plan of care. Patient was seen and examined. 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 He is independent. Smoking Status: Former smoker Past Alcohol Use History: Occasional Additional Past Alcohol Use History / Comment(s): Pt started smoking in 1973 and quit in 2017. He drinks 1-2 beers per day but used to drink more. Past Drug Use History: None Reported - Past Family History Father Family Medical History: Coronary Artery Disease (CAD), Hyperlipidemia, Hypertension Additional Family Medical History / Comment(s): CABG Mother Family Medical History: Coronary Artery Disease (CAD), CVA/TIA, Diabetes Mellitus, Hyperlipidemia, Hypertension, Myocardial Infarction ([place]) Additional Family Medical History / Comment(s): 7 stents Brother(s) Family Medical History: Diabetes Mellitus Additional Family Medical History / Comment(s): CABG Sister(s) Family Medical History: Coronary Artery Disease (CAD) Additional Family Medical History / Comment(s): CABG and valve Medications and Allergies Home Medications Medication Instructions Recorded Confirmed Type Apixaban [Eliquis] 5 mg PO BID 12/30/19 12/10/20 History Aspirin 81 mg PO DAILY 12/30/19 12/10/20 History metFORMIN HCL [metFORMIN HCL ER] 750 mg PO DAILY 12/30/19 12/10/20 History Cholecalciferol [Vitamin D3 (25 50 mcg PO DAILY 10/16/20 12/10/20 History Mcg = 1000 Iu)] Simvastatin [Zocor] 10 mg PO HS 10/16/20 12/10/20 History Metoprolol Tartrate [Lopressor] 25 mg PO HS #20 tab 10/18/20 12/10/20 Rx Metoprolol Tartrate [Lopressor] 50 mg PO DAILY #20 tab 10/18/20 12/10/20 Rx Lisinopril-Hctz 20-12.5 mg 1 tab PO DAILY 12/10/20 12/10/20 History [Zestoretic 20-12.5] Multivit-Min/FA/Lycopen/Lutein 1 tab PO DAILY 12/10/20 12/10/20 History [Centrum Silver Men Tablet] Ubidecarenone [Co Q-10] 100 mg PO HS 12/10/20 12/10/20 History Ubidecarenone [Co Q-10] 200 mg PO DAILY 12/10/20 12/10/20 History Allergies Allergy/AdvReac Type Severity Reaction Status Date / Time Sulfa (Sulfonamide Allergy Rash/Hives, Verified 12/10/20 14:34 Antibiotics) Blood in urine Physical Exam Vitals: Vital Signs Temp Pulse Pulse Resp BP BP Pulse Ox 12/11/20 01:22 98.1 F 56 L 16 107/57 100 12/10/20 23:33 56 L 12/10/20 20:39 98.5 F 69 18 123/70 98 12/10/20 20:09 66 12/10/20 20:08 66 18 12/10/20 19:52 66 12/10/20 19:43 148 H 12/10/20 19:31 67 20 104/62 99 12/10/20 18:10 110 H 12/10/20 17:52 60 100 12/10/20 15:54 97.6 F 61 18 100/65 100 12/10/20 13:58 65 18 103/62 100 12/10/20 13:37 146 H 18 96/69 100 12/10/20 13:11 129 H 18 99/76 99 12/10/20 12:34 97.8 F 128 H 18 104/63 99 Intake and Output 12/10/20 12/11/2021 22:59 06:59 14:59 Other: Voiding Method Toilet Toilet # Voids 1 1 Weight 90.718 kg Results 12/10/20 12:58 12/10/20 12:58 Cardiac Enzymes 12/10/20 12/10/20 12/10/20 Range/Units 12:58 12:58 16:05 AST 27 (17-59) U/L Troponin I <0.012 0.018 (0.000-0.034) ng/mL 12/10/20 Range/Units 18:50 AST (17-59) U/L Troponin I 0.015 (0.000-0.034) ng/mL Coagulation 12/10/20 Range/Units 12:58 PT 12.0 (9.0-12.0) sec APTT 27.7 (22.0-30.0) sec CBC 12/10/20 Range/Units 12:58 WBC 7.4 (3.8-10.6) k/uL RBC 4.92 (4.30-5.90) m/uL Hgb 14.7 (13.0-17.5) gm/dL Hct 43.3 (39.0-53.0) % Plt Count 201 (150-450) k/uL Comprehensive Metabolic Panel 12/10/20 Range/Units 12:58 Sodium 134 L (137-145) mmol/L Potassium 4.4 (3.5-5.1) mmol/L Chloride 100 (98-107) mmol/L Carbon Dioxide 21 L (22-30) mmol/L BUN 17 (9-20) mg/dL Creatinine 0.89 (0.66-1.25) mg/dL Glucose 97 (74-99) mg/dL Calcium 10.2 (8.4-10.2) mg/dL AST 27 (17-59) U/L ALT 16 (4-49) U/L Alkaline Phosphatase 51 (38-126) U/L Total Protein 7.1 (6.3-8.2) g/dL Albumin 4.7 (3.5-5.0) g/dL Current Medications Generic Name Dose Route Start Last Admin Trade Name Freq PRN Reason Stop Dose Admin Apixaban 5 mg 12/10/20 22:45 12/10/20 23:38 Apixaban 5 Mg Tab PO 5 mg BID [facility] Administration Protocol Aspirin 325 mg 12/11/20 09:00 Aspirin 325 Mg Tab PO DAILY [facility] Atorvastatin Calcium 10 mg 12/10/20 23:00 12/10/20 23:38 Atorvastatin 10 Mg Tab PO 10 mg HS [facility] Administration Lisinopril/HCTZ 1 each 12/11/20 09:00 Lisinopril-Hctz 20-12.5 Mg 1 Each Tab PO DAILY [facility] Metoprolol Tartrate 25 mg 12/10/20 23:00 12/10/20 23:39 Metoprolol Tartrate 25 Mg Tab PO Not Given HS [facility] Metoprolol Tartrate 50 mg 12/11/20 09:00 Metoprolol Tartrate 50 Mg Tab PO DAILY [facility] Nitroglycerin 0.4 mg 12/10/20 14:11 Nitroglycerin Sl Tabs 0.4 Mg Tab SUBLINGUAL Q5M PRN Chest Pain Sodium Chloride 10 ml 12/10/20 21:00 12/10/20 23:38 Sodium Chloride 0.9% Flush 10 Ml Syringe IV 10 ml BID [facility] Administration Intake and Output 12/10/20 12/11/20 12/11/20 22:59 06:59 14:59 Other: Voiding Method Toilet Toilet # Voids 1 1 Weight 90.718 kg 12/10/20 12:58 12/10/20 12:58
[2020-12-11 11:50] LABS: Chol/HDL Ratio 3.41
[2020-12-11] MEDS: LISINOPRIL-HCTZ 20-12.5 MG 1 EACH TAB PO SCH (15:15)
[2020-12-11 16:39] LABS: Glucose,Whole Blood 124 mg/dL (75-99)
[2020-12-11] MEDS: ATORVASTATIN 10 MG TAB PO SCH (20:28)
[2020-12-11] MEDS: METOPROLOL TARTRATE 25 MG TAB PO SCH (20:28)
[2020-12-11 20:39] LABS: Glucose,Whole Blood 139 mg/dL (75-99)
--- NOTE | 2020-12-11 23:08 | P.HPIM ---
History of Present Illness H&P Date: 12/11/20 Chief Complaint: palpitations Raphael Blood is a 60 yo M with PMH of CAD s/p PCI, cardiomyopathy, atrial fibrillation s/p ablation in 2019 who presented to the ED complaining of worsening palpitations, shortness of breath and dizziness over the past few weeks. He complains of episodes of chest pressure and dizziness that will last a few hours. He states that after his ablation last year he was asymptomatic and felt well up until a few weeks ago. On presentation he was in A fib with RVR, labs unremarkable, trop negative. Review of Systems All systems: negative Constitutional: Reports malaise, Denies chills, Denies fever Eyes: denies blurred vision, denies pain Ears, nose, mouth and throat: Denies headache, Denies sore throat Cardiovascular: Reports dyspnea on exertion, Reports lightheadedness, Reports palpitations, Reports shortness of breath, Denies chest pain Respiratory: Denies cough Gastrointestinal: Denies abdominal pain, Denies diarrhea, Denies nausea, Denies vomiting Musculoskeletal: Denies myalgias Integumentary: Denies pruritus, Denies rash Neurological: Denies numbness, Denies weakness Psychiatric: Denies anxiety, Denies depression Endocrine: Denies fatigue, Denies weight change 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 He is independent. Smoking Status: Former smoker Past Alcohol Use History: Occasional Additional Past Alcohol Use History / Comment(s): Pt started smoking in 1973 and quit in 2017. He drinks 1-2 beers per day but used to drink more. Past Drug Use History: None Reported - Past Family History Father Family Medical History: Coronary Artery Disease (CAD), Hyperlipidemia, Hypertension Additional Family Medical History / Comment(s): CABG Mother Family Medical History: Coronary Artery Disease (CAD), CVA/TIA, Diabetes Mellitus, Hyperlipidemia, Hypertension, Myocardial Infarction (ID) Additional Family Medical History / Comment(s): 7 stents Brother(s) Family Medical History: Diabetes Mellitus Additional Family Medical History / Comment(s): CABG Sister(s) Family Medical History: Coronary Artery Disease (CAD) Additional Family Medical History / Comment(s): CABG and valve Medications and Allergies Home Medications Medication Instructions Recorded Confirmed Type Apixaban [Eliquis] 5 mg PO BID 12/30/19 12/10/20 History Aspirin 81 mg PO DAILY 12/30/19 12/10/20 History metFORMIN HCL [metFORMIN HCL ER] 750 mg PO DAILY 12/30/19 12/10/20 History Cholecalciferol [Vitamin D3 (25 50 mcg PO DAILY 10/16/20 12/10/20 History Mcg = 1000 Iu)] Simvastatin [Zocor] 10 mg PO HS 10/16/20 12/10/20 History Metoprolol Tartrate [Lopressor] 25 mg PO HS #20 tab 10/18/20 12/10/20 Rx Metoprolol Tartrate [Lopressor] 50 mg PO DAILY #20 tab 10/18/20 12/10/20 Rx Lisinopril-Hctz 20-12.5 mg 1 tab PO DAILY 12/10/20 12/10/20 History [Zestoretic 20-12.5] Multivit-Min/FA/Lycopen/Lutein 1 tab PO DAILY 12/10/20 12/10/20 History [Centrum Silver Men Tablet] Ubidecarenone [Co Q-10] 100 mg PO HS 12/10/20 12/10/20 History Ubidecarenone [Co Q-10] 200 mg PO DAILY 12/10/20 12/10/20 History Allergies Allergy/AdvReac Type Severity Reaction Status Date / Time Sulfa (Sulfonamide Allergy Rash/Hives, Verified 12/10/20 14:34 Antibiotics) Blood in urine Physical Exam Vitals: Vital Signs Temp Pulse Pulse Resp BP Pulse Ox 12/11/20 20:00 97.8 F 138 H 18 92/57 98 12/11/20 15:00 97.5 F L 129 H 16 113/72 94 L 12/11/20 12:45 133 H 16 99/65 97 12/11/20 10:15 139 H 103/74 100 12/11/20 10:10 139 H 113/78 100 12/11/20 10:05 141 H 98/69 99 12/11/20 10:00 141 H 106/68 99 12/11/20 09:55 138 H 107/73 100 12/11/20 09:50 138 H 109/76 100 12/11/20 09:40 137 H 106/71 100 12/11/20 09:35 137 H 104/70 100 12/11/20 09:30 136 H 116/72 100 12/11/20 09:25 135 H 106/69 99 12/11/20 09:20 133 H 114/76 100 12/11/20 09:15 133 H 102/65 100 12/11/20 09:10 97.7 F 133 H 16 117/71 100 12/11/20 07:00 98.8 F 60 16 120/67 100 12/11/20 01:22 98.1 F 56 L 16 107/57 100 12/10/20 23:33 56 L Intake and Output 12/11/20 12/11/20 12/11/20 06:59 14:59 22:59 Intake Total 240 172.333 Balance 240 172.333 Intake: Intake, IV Titration 112.333 Amount Diltiazem 125 mg In 112.333 Sodium Chloride 0.9% 100 ml @ 10 MG/HR 10 mls/hr IV .[id number] [facility] Rx#: [id number] Oral 240 60 Other: Voiding Method Toilet Toilet # Voids 1 General: well nourished, well developed, NAD. Vitals reviewed Eyes: PERRL, EOMI, conjunctiva normal HENT: normocephalic, mucus membranes moist Neck: supple, no JVD Lungs: normal respiratory effort, no wheezes or rales CV: Irregular, tachycardic, no murmur. Peripheral pulses 2+ Abdomen: soft, nondistended, no organomegaly Lymph: no cervical or axillary LAD Skin: warm and dry. Neuro: A&Ox3, normal mood and affect Results CBC & Chem 7: 12/10/20 12:58 12/10/20 12:58 Labs: Abnormal Lab Results - Last 24 Hours (Table) 07/01/21 07/01/21 07/01/21 Range/Units 05:19 16:37 20:37 POC Glucose (mg/dL) 124 H 139 H (75-99) mg/dL HDL Cholesterol 29.0 L (40.0-60.0) mg/dL Thrombosis Risk Factor Assmnt - Choose All That Apply Each Risk Factor Represents 2 Points: Age 61-74 years Thrombosis Risk Factor Assessment Total Risk Factor Score: 2 Thrombosis Risk Factor Assessment Level: Low Risk Assessment and Plan Plan: 1. Atrial fibrillation with RVR. Admit, Cardiology following. Continue with cardizem drip and flecanide, continue metoprolol. Continue eliquis. Maximize medical management 2. CAD. Continue lipitor
[2020-12-12 06:20] LABS: Glucose,Whole Blood 126 mg/dL (75-99)
[2020-12-12] MEDS: FLECAINIDE 50 MG TAB PO SCH (08:50)
[2020-12-12] MEDS: METOPROLOL TARTRATE 50 MG TAB PO SCH (08:50)
[2020-12-12] MEDS: APIXABAN 5 MG TAB PO SCH (08:50)
[2020-12-12] MEDS: LISINOPRIL-HCTZ 20-12.5 MG 1 EACH TAB PO SCH (08:50)
[2020-12-12 08:56] VITALS: RESP 16; TEMP 96.2
[2020-12-12 12:01] LABS: Glucose,Whole Blood 121 mg/dL (75-99)
[2020-12-12] MEDS: DILTIAZEM 125 MG in SODIUM CHLORIDE 0.9% 100 ML IV SCH (12:14)
--- NOTE | 2020-12-12 12:14 | P.PN ---
Subjective HISTORY OF PRESENTING ILLNESS This is a pleasant 60-year-old male past medical history significant for coronary artery disease s/p PCI proximal LAD 2017, paroxysmal atrial fibrillation/atrial tachycardia s/p ablation 12/2019, ischemic cardiomyopathy improved after PCI, hypertension, dyslipidemia, diabetes mellitus, former nicotine dependence, mild gastritis. He follows in the office with Dr. Islas. We have been asked to see in consultation for palpitations and atrial fibrillation with rapid ventricular response. He's been noticing that over the past week his heart rate has becoming elevated and also has had some chronic chest heaviness and tightness. He states for the past 3 years he has been experiencing a headache, throat tightness and chest tightness intermittently. He states this usually happens when he eats. He states even when he coughs and he takes any bites of food he continues to get these symptoms of palpitations, heart rate elevation and chest tightness. In the emergency department they had difficulty capturing his atrial fibrillation with rapid ventricular response. EKG captured revealed tachycardia heart rate in the 120s with regular P waves and QRS complexes that could have appears to be atrial tachycardia. He was given 2.5 mg of IV Cardizem. He converted back to normal sinus rhythm, heart rate 60s, with a left bundle branch block. Patient was recently admitted in October 2020 with similar symptoms. He underwent Lexiscan stress test which was unremarkable and he also underwent Echocardiogram which revealed an EF of 60-65%, mild tricuspid regurgitation. At that time he was started on Cardizem and his heart rates normalized. There is no evidence of atrial fibrillation at that time. He has been seen also in consultation by GI and they have added protonix and underwent EGD on 10/18/2020 which revealed mild gastritis, small hiatal hernia. This morning patient seen and examined at bedside, no acute distress. Overnight patient was in sinus mechanism heart rate 55- 60s, no evidence of atrial fibrillation. His blood pressures are stable. He's currently being maintained on metoprolol 25 mg nightly, metoprolol tartrate 50 mg daily, Eliquis 5 mg twice a day, lisinoprilhydrochlorothiazide 2012 0.5 mg daily DIAGNOSTICS Chest x-ray with no acute cardiopulmonary process. Current daily cardiac medications include Eliquis 5 mg daily, aspirin 81 mg daily, lisinopril/hydrochlorothiazide 20/25 mg daily, metoprolol tartrate 50 mg daily and metoprolol tartrate 25mg nightly and simvastatin 10 mg at bedtime. He underwent catheterization in 2019 revealing mild in-stent restenosis of the previously stented proximal LAD and diffuse disease of the small diagonal branch. Medical therapy recommended at that time. Telemetry data reviewed CBC unremarkable, troponin negative 3, TSH within nor mal limits, sodium 134, potassium 4.4, BUN 17, serum creatinine 0.89, magnesium 1.8, COVID-19 negative 12/12/2020 Seen and examined sitting up in bed in no acute distress. Vital signs stable. He converted to SR and had post conversion pause noted on telemetry. Maintaining SR. Blood pressure 135/73 heart rate 65 afebrile maintaining oxygen saturation on room air. PHYSICAL EXAMINATION CONSTITUTIONAL: No apparent distress. HEENT: Head is normocephalic. Pupils are equal, round. Sclerae anicteric. Mucous membranes of the mouth are moist. No JVD. No carotid bruit. CHEST EXAMINATION: Lungs are clear to auscultation. No chest wall tenderness is noted on palpation or with deep breathing. HEART EXAMINATION: Regular rate and rhythm. S1, S2 heard. No murmurs, gallops or rub. EXTREMITIES: 2+ peripheral pulses, no lower extremity edema and no calf tenderness. ASSESSMENT Chest pain, atypical acute coronary syndrome has been ruled out. Recent negative Lexiscan stress test on 10/17/20 Paroxysmal atrial fibrillation on eliquis, status post ablation in 12/2019 Atrial tachycardia Coronary artery disease status post PCI to proximal LAD in 2018 History of ischemic cardiomyopathy improved after PCI Hypertension Dyslipidemia Diabetes mellitus Former daily alcohol use Former nicotine dependence Mild Gastritis PLAN Patient has vagal stimulated atrial flutter that is typical in nature. He will require further ablation. Stable for discharge from a cardiac perspective to follow-up in the office with Dr. Islas to set this up. Continue Lopressor 50 mg in the morning and 25 mg at bedtime along with lisinopril, atorvastatin and Eliquis. The importance of not missing a dose of his Eliquis prior to ablation was discussed in detail with the patient and his . Nurse Practitioner note has been reviewed, I agree with a documented findings and plan of care. Patient was seen and examined. Objective - Vital Signs Vital signs: Vital Signs Temp 96.2 F L 12/12/20 08:00 Pulse 65 12/12/20 08:00 Resp 16 12/12/20 08:00 BP 135/73 12/12/20 08:00 Pulse Ox 100 12/12/20 08:00 Intake & Output 12/11/20 12/12/20 12/12/20 18:59 06:59 18:59 Intake Total 300 112.333 240 Balance 300 112.333 240 Weight 88.9 kg Intake: Intake, IV Titration 112.333 Amount Diltiazem 125 mg In 112.333 Sodium Chloride 0.9% 100 ml @ 10 MG/HR 10 mls/hr IV .[id number] [facility] Rx#: [id number] Oral 300 240 Other: Voiding Method Toilet Toilet # Voids 1 - Labs CBC & Chem 7: 12/10/20 12:58 12/10/20 12:58 Labs: Abnormal Lab Results - Last 24 Hours (Table) 12/11/20 12/11/20 12/11/20 Range/Units 05:19 16:37 20:37 POC Glucose (mg/dL) 124 H 139 H (75-99) mg/dL HDL Cholesterol 29.0 L (40.0-60.0) mg/dL 12/12/20 Range/Units 06:18 POC Glucose (mg/dL) 126 H (75-99) mg/dL HDL Cholesterol (40.0-60.0) mg/dL
[2020-12-12 12:18] VITALS: BP 103/58; PULSE 57
--- NOTE | 2020-12-12 12:53 | P.DS ---
Providers Date of admission: 12/11/20 14:06 Expected date of discharge: 12/12/20 Attending physician: Gregg Fernandez MD Consults: 12/10/20 14:12 Consult Physician Urgent Consulting Provider: Jaylan Islas Consult Reason/Comments: a fib, cp Do you want consulting provider notified?: Yes Primary care physician: Gregg Fernandez MD Hospital Course: Final Diagnoses: 1. Atrial fibrillation with RVR., Appears to be vagal stimulated. History of ablation 12/30. Further outpatient ablation recommended. 2. CAD. 3. CAD, history of stenting 4. Ischemic cardiomyopathy 5. Atrial tachycardia 6. Diabetes mellitus 7. Former nicotine dependence 8. Daily consumption of beer, Hospital course:Raphael Blood is a 60 yo M with PMH of CAD s/p PCI, cardiomyopathy, atrial fibrillation s/p ablation in 2019 who presented to the ED complaining of worsening palpitations, shortness of breath and dizziness over the past few weeks. He complains of episodes of chest pressure and dizziness th at will last a few hours. He states that after his ablation last year he was asymptomatic and felt well up until a few weeks ago. On presentation he was in A fib with RVR, labs unremarkable, trop negative. Evaluated and treated by by cardiology, status post Cardizem drip, flecainide. Acute coronary syndrome ruled out as per cardiology. Appears to be vagal stimulated. Cardiology recommending further OP ablation. Significant clinical improvement. Patient has been cleared by cardiology for discharge. Patient will be discharged home today in a stable condition with guarded prognosis. The impression and plan of care has been dictated as directed. : I performed a history and examination of this patient, discussed the same with the dictator. I agree with the dictator's note ,documented as a scribe. Any additional findings or plans will be noted. Patient Condition at Discharge: Stable Plan - Discharge Summary New Discharge Prescriptions: Continue Apixaban [Eliquis] 5 mg PO BID Aspirin 81 mg PO DAILY metFORMIN HCL [metFORMIN HCL ER] 750 mg PO DAILY Simvastatin [Zocor] 10 mg PO HS Metoprolol Tartrate [Lopressor] 50 mg PO DAILY #20 tab Lisinopril-Hctz 20-12.5 mg [Zestoretic 20-12.5] 1 tab PO DAILY Multivit-Min/FA/Lycopen/Lutein [Centrum Silver Men Tablet] 1 tab PO DAILY Ubidecarenone [Co Q-10] 200 mg PO DAILY Cholecalciferol [Vitamin D3 (25 Mcg = 1000 Iu)] 50 mcg PO DAILY Metoprolol Tartrate [Lopressor] 25 mg PO HS #20 tab Ubidecarenone [Co Q-10] 100 mg PO HS Discharge Medication List Apixaban [Eliquis] 5 mg PO BID 12/30/19 [History] Aspirin 81 mg PO DAILY 12/30/19 [History] metFORMIN HCL [metFORMIN HCL ER] 750 mg PO DAILY 12/30/19 [History] Cholecalciferol [Vitamin D3 (25 Mcg = 1000 Iu)] 50 mcg PO DAILY 10/16/20 [History] Simvastatin [Zocor] 10 mg PO HS 10/16/20 [History] Metoprolol Tartrate [Lopressor] 25 mg PO HS #20 tab 10/18/20 [Rx] Metoprolol Tartrate [Lopressor] 50 mg PO DAILY #20 tab 10/18/20 [Rx] Lisinopril-Hctz 20-12.5 mg [Zestoretic 20-12.5] 1 tab PO DAILY 12/10/20 [History] Multivit-Min/FA/Lycopen/Lutein [Centrum Silver Men Tablet] 1 tab PO DAILY 12/10/20 [History] Ubidecarenone [Co Q-10] 100 mg PO HS 12/10/20 [History] Ubidecarenone [Co Q-10] 200 mg PO DAILY 12/10/20 [History] Follow up Appointment(s)/Referral(s): Jaylan Islas MD [STAFF PHYSICIAN] - 1 Week Gregg Fernandez MD [Primary Care Provider] - 3 Days
== END 2020-12-12 14:11 | disposition home or self-care (01) | DRG 310 ==
LOC: EC 12:32 → 6NMEDSUR 16:12 → 3SCARD 12-11 12:56 → OBSVTOIN 12-11 14:06
PROVIDERS: ADMIT Family Medicine; ATTEND Family Medicine
DX: I47.1 Supraventricular tachycardia (principal); E11.9 Type 2 diabetes mellitus without complications; E78.5 Hyperlipidemia, unspecified; I10 Essential (primary) hypertension; I25.10 Atherosclerotic heart disease of native coronary artery without angina pectoris; I25.5 Ischemic cardiomyopathy; I44.7 Left bundle-branch block, unspecified; I48.0 Paroxysmal atrial fibrillation; K29.70 Gastritis, unspecified, without bleeding; K44.9 Diaphragmatic hernia without obstruction or gangrene; Z20.822 Contact with and (suspected) exposure to COVID-19; Z79.01 Long term (current) use of anticoagulants; Z79.82 Long term (current) use of aspirin; Z79.84 Long term (current) use of oral hypoglycemic drugs; Z79.899 Other long term (current) drug therapy; Z82.49 Family history of ischemic heart disease and other diseases of the circulatory system; Z83.3 Family history of diabetes mellitus; Z87.891 Personal history of nicotine dependence; Z98.61 Coronary angioplasty status; Z88.2 Allergy status to sulfonamides; Z98.890 Other specified postprocedural states
CPT/HCPCS: 36415; 71046; 80053; 80061; 83735; 84439; 84443; 84481; 84484; 85025; 85610; 85730; 87635; 93005; 96374; 99291

== ENCOUNTER 2020-12-18 12:14 | Day surgery (SDC) | payer BC ==
[2020-12-17 10:55] VITALS: BMI 27.9
[~2020-12-18 12:14] MED LIST: SODIUM CHLORIDE 0.9% 1,000 ML IV SCH
[2020-12-18 13:03] LABS: Glucose,Whole Blood 102 mg/dL (75-99)
[2020-12-18] MEDS ORDERED: LIDOCAINE 1% INJ 10MG/ML (10 ML MDV) SQ ONE ×2 (16:08→16:09)
[2020-12-18] MEDS ORDERED: fentaNYL (PF) 50 MCG/ML 2 ML AMP ONE (17:31)
[2020-12-18] MEDS ORDERED: LIDOCAINE 1% INJ 10MG/ML (20 ML MDV) ONE ×2 (17:31→17:49)
[2020-12-18] MEDS ORDERED: GLYCOPYRROLATE 0.2 MG/ML 2 ML VIAL ONE (17:31)
[2020-12-18] MEDS ORDERED: ePHEDrine SULFATE/0.9% NACL/PF 50 MG/5 ML SYRINGE IV ONE (17:31)
[2020-12-18] MEDS ORDERED: ROCURONIUM 10 MG/ML (5 ML VIAL) IV ONE (17:31)
[2020-12-18] MEDS ORDERED: NEOSTIGMINE 1 MG/ML 10 ML VIAL ONE (17:31)
[2020-12-18] MEDS ORDERED: PROPOFOL 10 MG/ML 20 ML VIAL IV ONE (17:31)
[2020-12-18] MEDS ORDERED: MIDAZOLAM 2 MG/2 ML VIAL ONE (17:31)
[2020-12-18] MEDS ORDERED: SUCCINYLCHOLINE CHLORIDE 100 MG/5 ML SYR IV ONE (17:31)
[2020-12-18] MEDS ORDERED: HEPARIN SODIUM (1,000 UNIT/ML) 1,000 UNIT in SODIUM CHLORIDE 0.9% 1,000 ML IRRIGATION ONE (19:35)
[2020-12-18] MEDS ORDERED: ACETAMINOPHEN TAB 325 MG TAB PO PRN (19:35)
--- NOTE | 2020-12-18 19:44 | P.EPPROC ---
- EP Procedure Note Electrophysiology Procedure Note: Diagnosis Recurrent symptomatic atrial flutter with RVR Recent hospitalization for this line past history of A. fib ablation Procedure Successful atrial flutter ablation with bidirectional block Details Patient was brought to the EP lab in a fasting state. Written informed consent was obtained prior to the procedure. The right and left groins were prepped and draped as a protocol and venous sheaths were placed in the right and left femoral veins Mapping and ablation catheter intracardiac echo and diagnostic cath was replaced Sinus cycle length: 1 ms, ND interval 140 ms, QRS 145 ms and QT interval 451 ms AH interval 44 ms and HV interval 56 minutes Sinus recovery times a 605 100 ms were 1623 and 1237 ms Current to sinus node recovery time was prolonged AV node Wenckebach block 320 ms Intracardiac echo was performed 3-D electro-anatomic mapping was performed the cavo tricuspid isthmus was mapped The left atrial appendage was mapped No left atrial appendage thrombus noted RF ablation performed in the cavo tricuspid isthmus A complete line of block was made noted at the end of the rf ablation pacing maneuvers were performed differential pacing was performed 9 maguire block was noted no pericardial effusion noted to the end of the procedure result successful atrial flutter ablation
[2020-12-18] MEDS ORDERED: SODIUM CHLORIDE 0.9% 1,000 ML IV ONE (19:58)
[2020-12-18] MEDS ORDERED: METOPROLOL TARTRATE 25 MG TAB PO SCH (21:00)
[2020-12-18] MEDS ORDERED: LISINOPRIL-HCTZ 20-12.5 MG 1 EACH TAB PO SCH (21:00)
[2020-12-18] MEDS ORDERED: ATORVASTATIN 10 MG TAB PO SCH (21:00)
[2020-12-18] MEDS: APIXABAN 5 MG TAB PO SCH (21:42)
--- NOTE | 2020-12-18 22:26 | CE ---
CARDIAC ELECTROPHYSIOLOGY REPORT UPDATE TO ICD: Please see separate dictation for details regarding coronary sinus and regarding attempts at coronary sinus access, which Was impeded by the presence of an atrial septal occluder. The patient is brought to the EP lab in a fasting state. Written informed consent was obtained prior to the procedure. The left shoulder area was prepped and draped as per protocol. 1% lidocaine was used for local anesthesia. An incision made directly over the previous surgical site and carried down to the level of the generator. The pacemaker generator was explanted. A partial capsulectomy was performed. After a left upper extremity venogram access, two accesses were obtained. Coronary sinus sheath was placed in the right atrium and coronary sinus catheter was placed. Coronary sinus could not be cannulated because it was it was occluded and covered by the septal occluder (patient has had a previous ASD closure). We also attempted coronary sinus access from the right femoral vein, but we could not access it for the same reason. Following that an ICD lead was placed. This was a [employer] 7-Romanian lead. And this was model #7122 Q, 58 cm length and serial number [id number] that was placed in the RV apex, away from the pacing lead, which had been previously implanted in the RV septum. R-waves were 9.6 mV, pacing impedance 437 ohms, pacing threshold 0.5 V at 0.4 milliseconds and high-voltage impedance 73 ohms. The PVCs on the chronic atrial lead were 4.5 mV, pacing impedance 494 ohms, pacing threshold 0.75 V at 0.4 milliseconds. A biventricular ICD was implanted. The LV port was plugged. This was a [employer] model number CXGT1F4, serial number [id number]. The chronic RV pacing lead was capped and secured to the underlying pectoralis muscle. The wound was closed in 3 layers and dressed per protocol. DFT was deferred. PLAN: Epicardial LV placement in the future. MMODL / IJN: [id number] /
[2020-12-19 06:29] LABS: Glucose,Whole Blood 98 mg/dL (75-99)
[2020-12-19] MEDS ORDERED: metFORMIN 500 MG TAB PO SCH (07:30)
[2020-12-19] MEDS: APIXABAN 5 MG TAB PO SCH (08:23)
[2020-12-19] MEDS ORDERED: METOPROLOL TARTRATE 50 MG TAB PO SCH (09:00)
[2020-12-19] MEDS ORDERED: ASPIRIN 81 MG PO SCH (09:00)
[2020-12-19 09:47] LABS: African American GFR (CKD) >90 (>60 ml/min/1.73 sqM); Anion Gap 6 mmol/L; Blood Urea Nitrogen 8 mg/dL (9-20); Calcium 9.7 mg/dL (8.4-10.2); Carbon Dioxide 28 mmol/L (22-30); Chloride 102 mmol/L (98-107); Glucose 157 mg/dL (74-99); Non-African American GFR(CKD) >90 (>60 ml/min/1.73 sqM); Potassium 4.3 mmol/L (3.5-5.1); Sodium 136 mmol/L (137-145)
[2020-12-19 11:45] LABS: Glucose,Whole Blood 115 mg/dL (75-99)
[2020-12-19 11:50] VITALS: BP 108/58; PULSE 54; RESP 16; TEMP 98
--- NOTE | 2020-12-19 13:43 | DS ---
DISCHARGE SUMMARY Mr. Blood has underwent atrial flutter ablation yesterday. He has sustained typical atrial flutter. He has done well postoperatively. He has no chest discomfort. No dizziness, lightheadedness. His right groin is tender. He has a very small nodule at the access site. His blood pressure is elevated in the 140s to 150s. This morning at the time of swallowing food at breakfast, he had a 2-3 minute run of atrial fibrillation, which is self-limiting. IMPRESSION: 1. Vaguely mediated paroxysmal atrial fibrillation. 2. Sustained typical atrial flutter, status post successful ablation yesterday. 3. Previously he has had an atrial fibrillation ablation. 4. Hypertension. Blood pressures today are between 140-150 systolic and diastolics are between 85-90 mmHg. 5. Mild sinus bradycardia. PLAN: 1. Femstop off and on today. 2. Later today he can go home. 3. He will continue all his medications unchanged. 4. I am getting a BMP and lipid panel drawn and as an outpatient, I would reassess his dose of metoprolol and perhaps reduce it to 50 mg once daily unless he continues to have short bursts of atrial fibrillation with the act of swallowing. 5. I may consider maximizing antihypertensive therapy. 6. I will recheck his LDL to keep the level at goal and he may need maximization of statins too. MMODL / IJN: [id number] /
[2020-12-19 18:56] LABS: Chol/HDL Ratio 2.77; Cholesterol 83 mg/dL (0-200); LDL Cholesterol,Calculated 39.6 mg/dL (0.0-131.0)
== END 2020-12-19 14:19 | disposition home or self-care (01) ==
LOC: CATHEP 12:14 → 3SCARD 20:37 → CATHEP 12-19 14:19
PROVIDERS: ATTEND Internal Medicine Clinical Cardiac Electrophysiology
DX: I47.1 Supraventricular tachycardia (principal); I48.3 Typical atrial flutter; I25.10 Atherosclerotic heart disease of native coronary artery without angina pectoris; I10 Essential (primary) hypertension; I48.0 Paroxysmal atrial fibrillation; Z79.82 Long term (current) use of aspirin; I25.5 Ischemic cardiomyopathy; E78.5 Hyperlipidemia, unspecified; E11.9 Type 2 diabetes mellitus without complications; Z82.49 Family history of ischemic heart disease and other diseases of the circulatory system; Z72.0 Tobacco use; Z88.2 Allergy status to sulfonamides; Z79.01 Long term (current) use of anticoagulants; Z79.84 Long term (current) use of oral hypoglycemic drugs; Z79.899 Other long term (current) drug therapy
CPT/HCPCS: 93662; 93613; 93653; 80061; 80048; C1759; C1894; C1769 ×2; C1730; C1893; C1732; J2250; J2710; J2001 ×2; J3010; J1644; J0330; J2704

== ENCOUNTER → 2021-03-09 | Outpatient (CLI) | payer BC ==
--- NOTE | 2021-03-10 07:35 | MR ---
EXAMINATION TYPE: MR cervical spine wo con DATE OF EXAM: 03/09/2021 COMPARISON: 11/10/2018 HISTORY: Herniated Disc-Headaches CONTRAST: Performed utilizing 0 mL intravenous Gadavist gadolinium contrast. TECHNIQUE: Multiplanar multiecho imaging on a 3.0 Theresa magnet is performed through the cervical spin e. FINDINGS: The craniovertebral junction is normal. Vertebral body alignment is normal. C7-T1: No focal disc herniation or significant disc bulge is evident. No spinal canal stenosis or n eural foraminal stenosis is present. C6-7: Mild broad-based disc bulge has mild anterior thecal sac compression. No cord contact is eviden t. No spinal canal stenosis or neural foraminal stenosis is present.. C5-6: There is a right paracentral disc herniation with mild to moderate anterior thecal sac compress ion. This has some increased signal on T2-weighted sequences and annular tear may be present. This co mes in close approximation with the spinal cord. Some contact may be present. Deformity is not identi fied. No AP spinal canal stenosis is present. Uncovertebral joint hypertrophy is mild right foraminal stenosis. Findings appear stable from comparison. C4-5: There is a small right paracentral protrusion with mild anterior thecal sac compression. No cor d contact is evident. Neural foramen and mild narrowing from uncovertebral joint hypertrophy.. C3-4: Mild right paracentral protrusion is present with mild anterior thecal sac compression. This ap pears to be broad-based and extends beyond the midline. No AP spinal canal stenosis or neural foramin al stenosis is present.. C2-3: No focal disc herniation or significant disc bulge is evident. No spinal canal stenosis or christina ral foraminal stenosis is present. IMPRESSIONS: 1. Right paracentral disc herniation with mild to moderate anterior thecal sac compression at C4-5-6 level appears similar to comparison. 2. Small right paracentral protrusions at C4-5 and C3-4 without cord contact are present. 3. Mild disc bulge present C6-7. 4. Uncovertebral joint hypertrophy contributing to mild foraminal narrowing on the right discussed ab ove.
--- NOTE | 2021-03-10 07:47 | MR ---
EXAMINATION TYPE: MR brain wo/w con DATE OF EXAM: 03/09/2021 COMPARISON: CT brain 10/09/2017, MRI brain 10/10/2017. HISTORY: Headaches CONTRAST: Performed utilizing 10ml mL intravenous Gadavist gadolinium contrast. TECHNIQUE: Multiplanar, multiecho imaging on a 3.0 Theresa magnet is performed through the brain. Stud y is performed within 24 hours of arrival to the hospital. The craniovertebral junction is normal. The pituitary is normal. Diffusion-weighted imaging is performed. No abnormal hyperintensity is present to suggest an acute i ntracranial infarct or acute ischemic change. There is some increased signal within the left brainstem near the level of the left cerebellar pedunc le . This best visualized on T2 and inversion recovery weighted sequences. Findings are nonspecific. Differential diagnosis could include etiologies such as microvascular ischemic change and multiple sc lerosis finding appears stable from comparison. There is some periventricular white matter hyperintensity on T2 and inversion recovery weighted seque nces, likely on the basis of chronic white matter ischemic change. Ventricles and sulci are appropriate for the patient age. No suspicious enhancement is evident. Previ ous suspected enhancement is not well appreciated on the current exam. No suspicious changes in the l eft occipital region were prior calcification on CT was identified. Some mild mucosal thickening within the inferior right maxillary sinus is noted. Mucosal thickening i s to the ethmoid air cells. IMPRESSIONS: 1. Chronic appearing white matter ischemic type changes discussed above. 2. No significant interval change at the posterior left lateral ventricle at previous abnormality sit e.
== END | disposition home or self-care (01) ==
LOC: RADMRIMAIN 10:31
PROVIDERS: ATTEND Psychiatry & Neurology Neurology
DX: I67.82 Cerebral ischemia (principal); M50.223 Other cervical disc displacement at C6-C7 level; M99.71 Connective tissue and disc stenosis of intervertebral foramina of cervical region
CPT/HCPCS: 70553; 72141; A9585

== ENCOUNTER 2021-03-25 07:15 | Day surgery (SDC) | payer BC ==
[2021-03-24 09:55] VITALS: BMI 28.7
[2021-03-25] MEDS ORDERED: LACTATED RINGERS 1,000 ML IV ONE (07:56)
[2021-03-25 08:00] VITALS: TEMP 97.9
[2021-03-25 08:04] LABS: Glucose,Whole Blood 124 mg/dL (75-99)
[2021-03-25] MEDS ORDERED: LACTATED RINGERS 1,000 ML IV SCH (08:32)
[2021-03-25] MEDS ORDERED: LIDOCAINE 1% (10MG/ML) FOR IV START INTRADERMA PRN (08:32)
[2021-03-25] MEDS ORDERED: PROPOFOL 10 MG/ML 20 ML VIAL IV ONE (08:37)
--- NOTE | 2021-03-25 09:12 | P.PCN ---
Date of Procedure: 03/25/21 Procedure(s) Performed: BRIEF HISTORY: Patient is a 61-year-old pleasant white male scheduled for an elective colonoscopy as a part of evaluation of prior history of colon polyps. His last colonoscopy was 6 years ago. PROCEDURE PERFORMED: Colonoscopy. PREOPERATIVE DIAGNOSIS: History of colon polyps IV sedation per Anesthesia. PROCEDURE: After informed consent was obtained, the patient, was brought into the endoscopy unit. IV sedation was administered by Anesthesia under continuous monitoring. Digital rectal examination was normal. Initially the Olympus CF-160 flexible video colonoscope was then inserted in the rectum, gradually advanced into the cecum without any difficulty. Careful examination was performed as the scope was gradually being withdrawn. Ileocecal valve and the appendiceal orifice were visualized and appeared normal. Prep was excellent. Mucosa of the cecum, ascending colon, transverse colon, descending colon, sigmoid colon, and rectum appeared normal. Retroflexion was performed in the rectum and no lesions were seen. The patient tolerated the procedure well. IMPRESSION: Normal-appearing colon from rectum to cecum with no evidence of colorectal neoplasia . RECOMMENDATIONS: Findings of this examination were discussed with the patient as well as his family. He was advised to have a repeat surveillance colonoscopy in 5 years from now because of the prior history of colon polyps
[2021-03-25 09:18] VITALS: PULSE 55; RESP 16
[2021-03-25 09:23] VITALS: BP 122/73
== END 2021-03-25 09:50 | disposition home or self-care (01) ==
LOC: ORWHC2ENDO 07:15
PROVIDERS: ATTEND Internal Medicine Gastroenterology
DX: Z12.11 Encounter for screening for malignant neoplasm of colon (principal); Z86.010 Personal history of colon polyps; I48.91 Unspecified atrial fibrillation; I10 Essential (primary) hypertension; E78.5 Hyperlipidemia, unspecified; E11.9 Type 2 diabetes mellitus without complications; M19.90 Unspecified osteoarthritis, unspecified site; Z95.5 Presence of coronary angioplasty implant and graft; Z79.01 Long term (current) use of anticoagulants; Z79.84 Long term (current) use of oral hypoglycemic drugs; Z79.899 Other long term (current) drug therapy; Z88.2 Allergy status to sulfonamides
CPT/HCPCS: J2704; G0105

== ENCOUNTER → 2022-04-30 | Outpatient (CLI) | payer BC ==
--- NOTE | 2022-04-30 07:47 | CTL ---
EXAMINATION TYPE: CT Low Dose Lung DATE OF EXAM ORDERED: 04/30/2022 COMPARISON: 05/04/2021 HISTORY: . Low Dose CT Lung Screening CT DLP: 132.[address] CTDI: 3.60 mGy IV CONTRAST USED: None. SCREENING VISIT: Second COMPARISON: None. TECHNIQUE: Low dose computed tomography scan was performed through the chest at 1 millimeter thick se ctions and reconstructed images in the coronal plane at [address] DIAGNOSTIC QUALITY: Satisfactory FINDINGS: LUNG NODULES: Right upper lobe pulmonary nodule is stable at 5 x 4 mm axial image 48. 4 x 3 subpleural nodule left lower lobe image 190 is also stable. LUNGS: COPD: Severity: Mild Fibrosis: Severity:None Lymph nodes: None Other findings: None RIGHT PLEURAL SPACE: Effusion: None Calcification: None Thickening: None Pneumothorax: None LEFT PLEURAL SPACE: Effusion: None Calcification: None Thickening: None Pneumothorax: None HEART: Heart Size: Mildly enlarged Coronary calcification: Severe Pericardial effusion: None OTHER FINDINGS: Upper abdomen: No significant abnormality Bony thorax: Degenerative changes Supraclavicular region: No significant abnormalityOther: No significant abnormalityI IMPRESSION: Essentially stable CT of the chest. FOLLOW UP CT CHEST RECOMMENDATION: Follow-up screening in one year CT LUNG RAD: LUNG RAD CATEGORY 2 benign
== END | disposition home or self-care (01) ==
LOC: RADCTMAIN 06:07
PROVIDERS: ATTEND Family Medicine
DX: Z12.2 Encounter for screening for malignant neoplasm of respiratory organs (principal); Z87.891 Personal history of nicotine dependence
CPT/HCPCS: 71271

== ENCOUNTER → 2024-03-06 | Outpatient (CLI) | payer BC, MEDICARE ==
--- NOTE | 2024-03-06 11:31 | CTL ---
EXAMINATION TYPE: CT Low Dose Lung DATE OF EXAM ORDERED: 03/06/2024 HISTORY: . Lung cancer screening CT DLP: 108.[address] CTDI: 3.20 mGy Automated exposure control for dose reduction was used. SCREENING VISIT: Subsequent COMPARISON: 04/30/2022 TECHNIQUE: Low dose computed tomography scan was performed through the chest at 1 mm thick sections a nd reconstructed images in the coronal plane at [address] DIAGNOSTIC QUALITY: Satisfactory FINDINGS: LUNG NODULES: Present, detailed below: 1. There is a 0.4 cm nodule posterior right apex present previous. Series 4 image 44 LUNGS: COPD: Severity: None Fibrosis: Severity: None Lymph nodes: None Other findings: None RIGHT PLEURAL SPACE: Effusion: None Calcification: None Thickening: None Pneumothorax: None LEFT PLEURAL SPACE: Effusion: None Calcification: None Thickening: None Pneumothorax: None HEART: Other: Ascending thoracic aorta at the level the main pulmonary artery measures 3.5 cm. The main pul monary artery at the bifurcation measures 2.6 cm. Heart Size: Normal Coronary calcification: Moderate Pericardial effusion: None OTHER FINDINGS: Upper abdomen: Normal Bony thorax: Normal Supraclavicular region: Normal IMPRESSION: Benign findings FOLLOW UP CT CHEST RECOMMENDATION: Follow-up low-dose CT chest one year CT LUNG RAD: Lung-Rad 2 Benign Appearance or Behavior [facility], , 03/06/2024 11:29 AM
== END | disposition home or self-care (01) ==
LOC: RADCTMAIN 06:42
PROVIDERS: ATTEND Family Medicine
DX: Z87.891 Personal history of nicotine dependence
CPT/HCPCS: 71271